=== PATIENT | male | born 1955 | race Caucasian/White ===

== ENCOUNTER 2019-06-20 08:54 | Outpatient (CLI) | payer MEDICARE, SELFPAY ==
--- NOTE | 2019-06-20 13:14 | PFTS_ITS ---
Date of Study:06/20/2019 Date of Dictation: MECHANICS: Forced vital capacity (FVC) is normal. Forced expiratory volume in one second (FEV1) is normal. FEV1/FVC is normal. FLOW VOLUME LOOP: Mild scooping. LUNG VOLUMES: Total lung capacity (TLC) is normal. Residual volume (RV) is normal. DIFFUSING CAPACITY FOR CARBON MONOXIDE: Mildly reduced. INTERPRETATION: The pulmonary function tests are normal. There is no significant postbronchodilator response. Total lung capacity and residual volume are normal. Given the history of significant smoking and scooping of the flow volume loop there is possible small airways disease. Gas exchange (DLCO) is mildly reduced. This most likely represents emphysema in a patient with significant history of smoking. MTDD
== END 2019-06-20 08:55 | disposition home or self-care (01) ==
PROVIDERS: Family Provider Family Medicine; PCP Family Medicine; Visit Provider Internal Medicine Critical Care Medicine
DX: J44.9 Chronic obstructive pulmonary disease, unspecified (principal); F17.210 Nicotine dependence, cigarettes, uncomplicated
CPT/HCPCS: 94060; 94726; 94729; J7611

== ENCOUNTER 2019-10-27 20:00 | Outpatient (CLI) | payer MEDICARE, SELFPAY | END 2019-10-27 20:01 | disposition home or self-care (01) | LOC: SLEEP 10-28 09:02 | PROVIDERS: Family Provider Family Medicine; PCP Family Medicine; Visit Provider Internal Medicine Critical Care Medicine | DX: G47.31 Primary central sleep apnea (principal) | CPT/HCPCS: 95810 ==

== ENCOUNTER 2019-12-03 20:00 | Outpatient (CLI) | payer MEDICARE, SELFPAY | END 2019-12-03 20:01 | disposition home or self-care (01) | LOC: SLEEP 12-04 08:48 | PROVIDERS: Family Provider Family Medicine; PCP Family Medicine; Visit Provider Internal Medicine Critical Care Medicine | DX: G47.39 Other sleep apnea (principal) | CPT/HCPCS: 95811 ==

== ENCOUNTER 2020-10-28 08:32 | Outpatient (CLI) | payer MEDICARE, SELFPAY ==
[2020-10-28 09:07] VITALS: BMI 35.5
--- NOTE | 2020-10-28 09:08 | ECG_ITS ---
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 The perfusion scan will be documented separately. DATA: Baseline heart rate was 52 beats per minute. Baseline blood pressure was 137/68 millimeters of mercury. Target heart rate was 157. Maximum heart rate achieved was 96. which was 61 % of the predicted target heart rate. Maximum blood pressure was 137/74 millimeters of mercury. The reason for ending the test was completion of the protocol. The patient did not experience any symptoms. ELECTROCARDIOGRAM: BASELINE: Sinus bradycardia. Interventricular conduction delay, normal axis. Otherwise, no ST-T changes suggestive of ischemia noted. No arrhythmia noted. EXERCISE: After Lexiscan injection, frequent PVCs were noted otherwise, no ST-T changes suggestive of ischemic noted. CONCLUSION: Please note due to baseline abnormality of the EKG specificity and sensitivity of the EKG portion of LexiScan MIBI stress test will be low 1. EKG not suggestive of ischemia 2. Lexiscan injection unremarkable. 3. Perfusion scan will be documented separately. Electronically Signed On 10-28-2020 11:26:08 CDT by LAURO POSADA [id number]
--- NOTE | 2020-10-28 09:09 | NMCV_ITS ---
NM vianca perf SPECT r/s* [id number] Toni Lightvis Age: 65 Gender: M : 1955 Exam Date: 10/28/2020 09:09 Ordering Phys: Lauro Posada MD ([email or web address]) Technologist: ELIAS Wong Exam Location: [facility] Indications: afib STRESS TEST Please [facility] IMAGE PROTOCOL Rest/Stress 1 Lexiscan Day Radiopharmaceutical Dose (mCi) Administration Site Administered by Rest: Tc-99m 10.9 IV ELIAS Wong Sestamibi Stress:Tc-99m 32.9 IV ELIAS Alfonso Sestamibi Rest: 28-Oct-2020 60 Discovery 630 Stress: 28-Oct-2020 30 Discovery 630 Images obtained in supine and prone position. 0.4mg Lexiscan. SPECT RESULTS Technical Quality: Excellent Raw Data Analysis: Normal Image Corrections: No attenuation or motion correction applied Summed Stress Score: 2 Summed Rest Score: 1 Summed Difference Score: 1 PERFUSION FINDINGS Medium-sized area of fixed perfusion defect noted in basal to mid inferior and inferolateral wall suggestive of old myocardial infarction versus scarring. FUNCTIONAL RESULTS (calculated via Gated SPECT) Stress Image LV EF (%): 74 Stress EDV (mL):98 TID: 1.09 Stress ESV (mL):25 Rest Image LV EF (%): 74 FUNCTIONAL FINDINGS: Basal to mid inferior wall hypokinesis. IMPRESSIONS Medium-sized area of old myocardial infarction versus scarring noted in basal to mid inferior inferolateral wall without nay-infarct ischemia. This study is negative for ischemia. EKG segment will be documented separately Lauro Posada MD (Electronically Signed) Final Date: 28 October 2020 16:44 S
[2020-10-28 10:46] VITALS: BP 126/73; PULSE 70
[2020-10-28] MEDS: regadenoson 0.4 Mg/5 ml Syringe IVP (10:46)
== END 2020-10-28 08:33 | disposition home or self-care (01) ==
PROVIDERS: PCP Family Medicine; Visit Provider Internal Medicine Cardiovascular Disease
DX: I48.91 Unspecified atrial fibrillation (principal); R06.02 Shortness of breath
CPT/HCPCS: 78452; 93017; A9500; J2785

== ENCOUNTER → 2022-01-27 10:05 | Outpatient (BNVA) | payer MEDICARE, SELFPAY | PROVIDERS: PCP Family Medicine; Visit Provider Internal Medicine Cardiovascular Disease | DX: R07.9 Chest pain, unspecified (principal); I25.10 Atherosclerotic heart disease of native coronary artery without angina pectoris; Z95.5 Presence of coronary angioplasty implant and graft; I25.2 Old myocardial infarction; F17.210 Nicotine dependence, cigarettes, uncomplicated; I12.9 Hypertensive chronic kidney disease with stage 1 through stage 4 chronic kidney disease, or unspecified chronic kidney disease; E11.22 Type 2 diabetes mellitus with diabetic chronic kidney disease; N18.9 Chronic kidney disease, unspecified; Z79.84 Long term (current) use of oral hypoglycemic drugs; I25.5 Ischemic cardiomyopathy; E78.5 Hyperlipidemia, unspecified | CPT/HCPCS: 99214 ==

== ENCOUNTER 2022-02-13 07:19 | Outpatient (CLI) | payer MEDICARE, SELFPAY ==
[2022-02-13] VITALS (46 sets, daily range): BP systolic 95–131; BP diastolic 52–78; PULSE 49–93; RESP 9–33; TEMP 37.1; O2SAT 88–98; BMI 33.9
[2022-02-13] MEDS: diphenhydrAMINE 50 mg Capsule PO (08:00)
[2022-02-13 08:28] LABS: Basophils # 0.1 10^3/uL (0.0-0.1); Eosinophils # 0.4 10^3/uL (0.0-0.8); Eosinophils % 3.1 %; Hematocrit 45.3 % (42.0-52.0); Hemoglobin 14.7 g/dL (11.7-16.6); Lymphocytes # 3.4 10^3/uL (0.8-4.8); Lymphocytes % 25.1 %; Mean Corpuscular HGB Conc 32.5 g/dL (30.0-36.0); Mean Corpuscular Hemoglobin 30.2 pg (28.0-34.0); Mean Corpuscular Volume 93.2 fl (80-94); Mean Platelet Volume 9.8 fL (7.4-10.4); Monocytes % 7.3 %; Neutrophils # 8.53 10^3/uL (1.8-7.7); Neutrophils % 63.2 %; Nucleated Red Blood Cells % 0 %; Platelet Count 293 10^3/cmm (130-400); Red Blood Count 4.86 10^6/uL (4.1-5.3); Red Cell Distribution Width 14.4 % (12.1-15.1); White Blood Count 13.5 10^3/uL (4.0-10.0)
[2022-02-13 08:44] LABS: INR 1.01 (0.8-1.2)
[2022-02-13 08:48] LABS: Anion Gap 14.8 (5-19); Blood Urea Nitrogen 12 mg/dL (8-23); Carbon Dioxide 22 mmol/L (22-29); Chloride 101 mmol/L (98-107); Creatinine Clr Calc Pharmacy 73.2955; Glomerular Filtration Rate 67.4 mL/min (90-130); Glucose 158 mg/dL (65-115); Osmolality Calculated 281 mOsm/kg (285-295); Potassium 3.8 mmol/L (3.5-5.1); Sodium 134 mmol/L (136-145)
--- NOTE | 2022-02-13 09:15 | W.PM.OPSUD ---
Surgery/Procedure H&P Update DATE OF PROCEDURE: February 13, 2022 DATE H&P PERFORMED: 01/27/22 CHANGES TO PREVIOUS DOCUMENTATION: None PRIMARY INDICATION FOR PROCEDURE: Chest pain PLANNED PROCEDURE: Operation Date: 02/13/22 08:30 Proposed Procedures p [facility] [address]6030,R07.9(Left) - Femi Singh MD
--- NOTE | 2022-02-13 09:19 | SUR.PREOP ---
Dr. Singh at bedside, consent obtained.
--- NOTE | 2022-02-13 09:56 | XACV_ITS ---
Exam Room: 2 Ht: 165 cm Wt: 95 kg BSA: 2.13 m2 Gender: Male : 1955 Any Known Allergies: No known allergies Exam Priority: Routine Procedure(s): Procedure Description: Diagnostic procedure Procedure Description: PCI procedure Procedure Description: PTCA Procedure Description: Coronary Angiography Samantha SANTAMARIA; Diagnostic Cath Status: Elective Diagnostic Findings * This patient has multiple risk factors and refuses to quit smoking. He is an obese diabetic with a previous history of multiple stents. He refused stress testing and wished to move directly to angiography. Patient has a very thready radial pulse. I was unable to enter the right radial artery. The procedure was done from the right common femoral artery. * Angiography reveals right coronary artery dominance. The left main coronary artery is normal. The LAD contains areas of luminal irregularities but no significant stenoses. There are 2 large marginal branches both of which have previously placed stents which are patent. There is a 85 to 90% ostial stenosis of the second marginal just at the takeoff of the first marginal at the bifurcation. The LAD and circumflex provide collateral flow to the occluded right coronary artery. The right coronary artery is occluded proximally. PCI Status: Elective PCI LVEF Assessed: No PCI Indication: New Onset Angina <= 2 months Interventional Findings * At the end of angiography patient became restless. He has a very high tolerance for drugs and despite fairly large doses of benzodiazepines and narcotics he remained restless and talkative. Angioplasty first of the second obtuse marginal branch was accomplished with a 3.5 mm x 15 mm balloon. This, not unexpectedly, pushed plaque into the first obtuse marginal branch. This vessel then underwent angioplasty with the same balloon. We ended up with a adequate result with about 40% stenoses of both ostial vessels. Decision for PCI with Surgical Consult: No PCI for Multi-vessel Disease: No Conclusions 1. Angioplasty of the first and second obtuse marginal branches at the ostia with plaque shifting between the 2. Adequate end result. Occluded right coronary artery. Interventional RX Recommendation: PCI w/o planned CABG Diagnostic RX Recommendation: PCI w/o planned CABG Anticoagulation: Heparin Pressures Phase:Rest AO : 111 / 80 ( 94 ) @ 10:34:00 AM 111 / 60 ( 80 ) @ 10:47:00 AM Clinical Evaluation EBL: 5mL-10mL Procedural Details Procedure Consent Obtained. Admit Source: In Patient. Baseline sample Acquired. HR: 55 BPM. Baseline sample Acquired. HR: 59 BPM. Pre-Procedure Time Out. Identified patient by full name and date of as verbalized by the patient/guarantor. Does the consent match the physician's order: Yes. Accurate & Complete Informed Consent: Yes. Inpatient/Outpatient History & Physical on Chart: Yes. If H&P is completed, is and addenduem needed: No; If yes, is the addendum complete: N/A. Visualize and Verify Site with Patient/Guarantor: N/A. Relevant Radiology Images available: Yes. Pre-op teaching completed and patient verbalized understanding. The risks, benefits, and alternatives of sedation and/or procedure were discussed by physician. The patient agrees to continue. Procedure started. [facility] Clinical Fraility Score: 3: Managing Well. Cardiac Rehab Nurse Indications: Suspected CAD. Chest Pain Symptom Assessment: Atypical Angina. Correct patient, site and procedure confirmed by cath team. Current diagnosis: Chest Pain. PERRLA. 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 Lungs clear x 5 lobes. IV Site on Arrival: 18 gauge in the right anticubital. IV Fluids: 0.9% NaCl at KVO. 0 mL infused prior to dye lab technician. Pre Procedural Pulses: bilateral posterior tibial was Doppled. Pre Procedural Pulses: bilateral radial was 2+. Oxygen started at 2liters/min via nasal canula. Baseline sample Acquired. HR: 57 BPM. Physician arrived. Physician scrubbed in. Immediate Pre-Procedure Time Out. Correct Patient: Yes; Correct Procedure: Yes; Correct Site: Yes; Correct Patient Position: Yes; Correct Supplies: Yes; Dried Flammable Prep: Yes; Blood Products Available: N/A;. Lidocaine 1% infiltrated to the right radial. Unable to obtain radial access. MD attempting to gain access in the Femoral artery. Lidocaine 1% infiltrated to the right groin. Arterial access obtained. A 6 mal[place] JL4 catheter in over wire. Multiple views taken of left coronary artery. Catheter out. A 6 malawian JR4 catheter in over wire. Multiple views taken of right coronary artery. Physician review of cine films. 6 malawian XB 3.5 guide catheter was inserted over the wire. wire out. [employer] guidewire was advanced through the guide catheter to lesion in the OM. Inventory is [employer] XT .014 190cm Str. Guidewire. Balloon inserted to lesion in the OM. Inflation number : 1 A AB TREK 3.50X15 RX BALLOON was prepped and advanced across the 2nd Ob Aura , then inflated to 8 ROB for 0:32 seconds. Results checked. wire redirected to om1. Inflation number: 1 The AB TREK 3.50X15 RX BALLOON was reinflated across the 1st Ob Aura, to 5 ROB for 0:23 seconds. Results checked. Balloon out. Wire out. Guide catheter out. Physician scrubbed out. Sheath(s) sutured into position with 2-0 silk and sterile 4x4's and Op-site applied over the site. No oozing or signs and symptoms of hematoma noted. Arterial sheath flushed and connected to tranducer and pressure bag with heparinized saline. Post Procedure: Pulses reassessed and unchanged. PERRLA. 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 No VTE prophylaxis required. Medication's Wasted: Lidocaine 1% = 4 mL. Medication's Wasted: Nitro = 50 mg. Total IV fluids: 100 mL. Post-op diagnosis: CAD. Estimated blood loss: 5mL-10mL. Responsiveness - Normal response to verbal stimuli; alert and oriented, PERRLA. Airway - Unaffected, no intervention required; spontaneous ventilation. Circulation: W/N/L, pulses unchanged. Nausea/Vomiting: No. Procedure completed. Patient transferred by bed to 1st floor. Vital chart was stopped. Access Site Site: Right Femoral artery Sheath Size: 6 Fr Hemostasis Success: Unsuccessful Procedure Medications Start: 10:12 AM Stop: 10:12 AM Medication: Versed Amount: 1 mg Route: I.V. Start: 10:12 AM Stop: 10:12 AM Medication: Fentanyl Amount: 50 mcg Route: I.V. Start: 10:12 AM Stop: 10:12 AM Medication: Versed Amount: 1 mg Route: I.V. Start: 10:12 AM Stop: 10:12 AM Medication: Fentanyl Amount: 50 mcg Route: I.V. Start: 10:22 AM Stop: 10:22 AM Medication: Versed Amount: 1 mg Route: I.V. Start: 10:27 AM Stop: 10:27 AM Medication: Versed Amount: 1 mg Route: I.V. Start: 10:45 AM Stop: 10:45 AM Medication: Versed Amount: 1 mg Route: I.V. Start: 10:45 AM Stop: 10:45 AM Medication: Fentanyl Amount: 50 mcg Route: I.V. Start: 10:46 AM Stop: 10:46 AM Medication: Heparin Amount: 5000 units Route: I.V. I, the attending physician, have reviewed and verified all procedure medications. Yes, all medications given per verbal order History/Risk Factors Hypertension: Yes Dyslipidemia: Yes Peripheral Arterial Disease (PAD): No Myocardial Infarction ([place]): Yes Obesity: No Renal Disease: No Tobacco Use: Current/Recent(w/in 1 year) Prior Interventions PCI: Yes CABG: No Valve Surgery: No Date of PCI: 03/04/2018 Report Signatures Finalized by Dr. Femi Signh MD on 02/13/2022 11:17 AM
[2022-02-13] MEDS: sodium chloride 0.9% 1,000 ML 100 ML IV (11:43)
[2022-02-13] MEDS: HYDROcodone-acetaminophen 10-325 mg Tablet 1 TAB PO ×2 (14:38→22:59)
--- NOTE | 2022-02-13 21:34 | PC.NURSE ---
At 2100 patient attempted to get out of bed by himself. Patient became short of breath and diaphoretic. Patient denied chest pain. Patient was not able tostand on his own. With the help of a second nurse we were able to get patient to a chair.
--- NOTE | 2022-02-14 06:25 | PM.DCS ---
Discharge Providers Date of Admission: February 13, 2022 Date of Discharge: February 14, 2022 Attending Provider at Admission: lashawn Attending Provider at Discharge: Femi Singh MD Primary Care Provider: Magno Vann DO Diagnoses at Discharge Discharge Diagnosis (1) Chest pain: Status: Acute (2) Mixed sleep apnea: Status: Acute (3) Chronic renal disease: Status: Acute (4) Obesity: Status: Acute (5) Ischemic cardiomyopathy: Status: Acute (6) History of coronary artery stent placement: Status: Acute (7) Myocardial infarct, old: Status: Acute (8) Hypertension: Status: Acute Qualifiers: Hypertension type: essential hypertension Qualified Code(s): I10 - Essential (primary) hypertension (9) Dyslipidemia: Status: Acute (10) Diabetes mellitus: Status: Acute (11) Chronic pain disorder: Status: Acute (12) CAD (coronary artery disease): Status: Acute Qualifiers: Coronary Disease-Associated Artery/Lesion type: [place] artery [place] vs. transplanted heart: [place] heart Associated angina: angina presence unspecified Qualified Code(s): I25.10 - Atherosclerotic heart disease of [place] coronary artery without angina pectoris (13) Nicotine addiction: Status: Acute (14) Sleep apnea: Status: Acute (15) COPD (chronic obstructive pulmonary disease): Status: Acute Reason for Visit Reason for Visit: R07.9 Brief History: Patient was admitted yesterday electively for purposes of coronary angiography. I had seen him in the office a week prior with complaints of chest pain. He declined stress testing. He has a long history of coronary artery disease. Hospital Course Hospital Course Coronary angiography revealed an occluded right coronary artery which is chronic. There is collateral flow from the LAD and a minimal amount from the circumflex. The LAD contains minor diffuse luminal irregularities as does the left main. At the bifurcation of the first and second marginal branch there was a 90% stenosis of the second obtuse marginal branch. This underwent plain old balloon angioplasty because of plaque shifting into the first obtuse marginal branch. Both branches underwent angioplasty with a reasonable result. Previously placed stents more distally in both marginal branches are patent. No left ventriculogram was done. The procedure was done from the right femoral artery. Multiple attempts were made to enter the right radial artery which were unsuccessful. This has been the case in the past for him. At the time of discharge there is no bleeding, hematoma or other vascular problem. His medications will not change. He has been instructed to hold the metformin for 2 days post discharge. Physical Exam Narrative: GENERAL: In general he states he feels a little better this morning. No distress. No chest pain. Minimal chronic shortness of breath. HEENT: Exam within normal limits. NECK: Supple without jugular vein distention. The carotid upstroke is normal without bruits. BACK: Exam normal. LUNGS: Clear. HEART: Regular rate and rhythm. ABDOMEN: Benign without organomegaly or tenderness. EXTREMITIES: No edema. Right groin is flat, dry without bleeding, hematoma or vascular anomaly. NEUROLOGIC: Exam normal. SKIN: Unremarkable. 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 request for service Routine Exams 02/13/22 09:56 Completed Laboratory Results WBC 13.5 10^3/uL (4.0-10.0) H 02/13/22 08:05 RBC 4.86 10^6/uL (4.1-5.3) 02/13/22 08:05 Hgb 14.7 g/dL (11.7-16.6) 02/13/22 08:05 Hct 45.3 % (42.0-52.0) 02/13/22 08:05 MCV 93.2 fl (80-94) 02/13/22 08:05 MCH 30.2 pg (28.0-34.0) 02/13/22 08:05 MCHC 32.5 g/dL (30.0-36.0) 02/13/22 08:05 RDW 14.4 % (12.1-15.1) 02/13/22 08:05 Plt Count 293 10^3/cmm (130-400) 02/13/22 08:05 MPV 9.8 fL (7.4-10.4) 02/13/22 08:05 Neut % (Auto) 63.2 % 02/13/22 08:05 Lymph % (Auto) 25.1 % 02/13/22 08:05 Gulf % (Auto) 7.3 % 02/13/22 08:05 Eos % (Auto) 3.1 % 02/13/22 08:05 Baso % (Auto) 1.0 % 02/13/22 08:05 Neut # (Auto) 8.53 10^3/uL (1.8-7.7) H 02/13/22 08:05 Lymph # (Auto) 3.4 10^3/uL (0.8-4.8) 02/13/22 08:05 [place] # (Auto) 1.0 10^3/uL (0.2-0.9) H 02/13/22 08:05 Eos # (Auto) 0.4 10^3/uL (0.0-0.8) 02/13/22 08:05 Baso # (Auto) 0.1 10^3/uL (0.0-0.1) 02/13/22 08:05 Nucleated RBC % (auto) 0 % 02/13/22 08:05 Nucleated RBCs # 0.0 /100WBC 02/13/22 08:05 PT 13.60 SECONDS (12.1-14.9) 02/13/22 08:05 INR 1.01 (0.8-1.2) 02/13/22 08:05 APTT 45.0 SECONDS (23.9-36.7) H 02/13/22 13:52 Sodium 134 mmol/L (136-145) L 02/13/22 08:05 Potassium 3.8 mmol/L (3.5-5.1) 02/13/22 08:05 Chloride 101 mmol/L (98-107) 02/13/22 08:05 Carbon Dioxide 22 mmol/L (22-29) 02/13/22 08:05 Anion Gap 14.8 (5-19) 02/13/22 08:05 BUN 12 mg/dL (8-23) 02/13/22 08:05 Creatinine 1.1 mg/dL (0.7-1.2) 02/13/22 08:05 GFR Calculation 67.4 mL/min (90-130) L 02/13/22 08:05 Glucose 158 mg/dL (65-115) H 02/13/22 08:05 Calculated Osmolality 281 mOsm/kg (285-295) L 02/13/22 08:05 Calcium 9.0 mg/dL (8.5-10.5) 02/13/22 08:05 Procedures Performed Coronary angiography. Angioplasty ostial first and second obtuse marginal branches. Vitals Last Vital Signs Temp 98.7 F 02/13/22 08:23 Pulse 54 L 02/13/22 23:45 Resp 16 02/13/22 23:45 BP 120/68 02/13/22 21:00 Pulse Ox 98 02/13/22 23:45 O2 Del Method CPAP 02/13/22 11:47 Discharge Plan Discharge Patient Disposition: Home Prescriptions: Continued aspirin [Adult Aspirin Regimen] 81 mg tablet,delayed release (DR/EC) 81 mg PO DAILY atorvastatin 40 mg tablet 40 mg PO DAILY Qty: 90 3RF furosemide 40 mg tablet 40 mg PO QAM PRN (Reason: edema) Qty: 90 3RF metoprolol succinate 100 mg tablet extended release 24 hr 100 mg PO DAILY Qty: 90 3RF nitroglycerin 0.4 mg tablet, sublingual 0.4 mg SUBLINGUAL Q5M PRN (Reason: chest pain) Qty: 25 3RF prasugrel 10 mg tablet 10 mg PO DAILY Qty: 90 3RF ranolazine 500 mg tablet extended release 12 hr 500 mg PO DAILY Qty: 90 1RF hydrocodone-acetaminophen 10-325 mg tablet 1 tab PO QID PRN (Reason: pain) Rx Instructions: Hold 4H of planned sleep cyclobenzaprine 10 mg tablet 10 mg PO BID PRN (Reason: muscle spasm) metformin 500 mg tablet 500 mg PO DAILY omega-3 fatty acids [Fish Oil Concentrate] 1,000 mg capsule 1,000 mg PO DAILY tamsulosin 0.4 mg capsule 0.4 mg PO DAILY Farxiga 5 mg Tablet 5 mg PO QAM Discharge Orders: Discharge Order (Routine); Ordered 02/14/22 Ordered By: Femi Singh Referrals: Isa Perdomo FNP [Nurse Practitioner] - 7-10 days (Right groin check and chemistry panel) Diet: Diabetic Activity: Increase activity as tolerated and Limit activity as instructed Patient Instructions: Coronary Angioplasty (DC) Activity Restrictions/Additional Instructions: No lifting over 5 pounds for 2 days. Hold metformin for 2 days. Discharge Attestations Time Spent in Discharge Care*: less than 30 min Quality Metrics Clinical Quality Measures [ No reported AMI, CVA or VTE this stay] Coding Level of Care Code Established Pt Acute Chg FW DC note Patient Type Established History Detailed Exam Detailed Medical Decision Making Moderate Complexity Diagnoses Chest pain R07.9 Mixed sleep apnea G47.39 Chronic renal disease N18.9 Obesity E66.9 Ischemic cardiomyopathy I25.5 History of coronary artery stent placement Z95.5 Myocardial infarct, old I25.2 Hypertension I10 Hypertension type: essential hypertension Dyslipidemia E78.5 Diabetes mellitus E11.9 Chronic pain disorder G89.4 CAD (coronary artery disease) I25.10 Coronary Disease-Associated Artery/Lesion type: [place] artery [place] vs. transplanted heart: [place] heart Associated angina: angina presence unspecified Nicotine addiction F17.200 Sleep apnea G47.30 COPD (chronic obstructive pulmonary disease) J44.9
[2022-02-14 07:46] VITALS: BP 122/67; PULSE 64; RESP 18; TEMP 36.7; O2SAT 97
[2022-02-14] MEDS: omega-3 fatty acids 1,000 mg Capsule 1000 MG PO (07:55)
--- NOTE | 2022-02-14 09:16 | PC.NURSE ---
Discharge Note Patient discharged to home via private vehicle accompanied by . Discharge instructions reviewed with patient and/or pharmacy services representative. Belongings returned. post angiogram home care instructions discussed. educated pt to hold metformin for 2 days per livestock laborer.
== END 2022-02-14 09:15 | disposition home or self-care (01) ==
LOC: CCL 07:27 → CSU 11:24
PROVIDERS: PCP Family Medicine; Visit Provider Internal Medicine Cardiovascular Disease
DX: I25.10 Atherosclerotic heart disease of native coronary artery without angina pectoris (principal); I25.82 Chronic total occlusion of coronary artery; E11.22 Type 2 diabetes mellitus with diabetic chronic kidney disease; I12.9 Hypertensive chronic kidney disease with stage 1 through stage 4 chronic kidney disease, or unspecified chronic kidney disease; N18.9 Chronic kidney disease, unspecified; I25.2 Old myocardial infarction; G47.39 Other sleep apnea; E66.9 Obesity, unspecified; Z68.33 Body mass index [BMI] 33.0-33.9, adult; I25.5 Ischemic cardiomyopathy; Z95.5 Presence of coronary angioplasty implant and graft; G89.4 Chronic pain syndrome; F17.210 Nicotine dependence, cigarettes, uncomplicated; J44.9 Chronic obstructive pulmonary disease, unspecified; Z79.82 Long term (current) use of aspirin; Z79.84 Long term (current) use of oral hypoglycemic drugs; Z87.11 Personal history of peptic ulcer disease
CPT/HCPCS: 36415; 80048; 85025; 85610; 85730; 92920; 93454; 96360; 99152; 99153; C1725; C1769; C1887; C1894; J1644; J2250; J3010; J3490; J7030; Q0163; Q9967

== ENCOUNTER → 2022-03-23 10:27 | Outpatient (BNVA) | payer MEDICARE, SELFPAY | PROVIDERS: PCP Family Medicine; Visit Provider Orthopaedic Surgery | DX: M47.817 Spondylosis without myelopathy or radiculopathy, lumbosacral region (principal); M48.062 Spinal stenosis, lumbar region with neurogenic claudication; Z98.1 Arthrodesis status | CPT/HCPCS: 72110; 99204 ==

== ENCOUNTER → 2023-06-18 11:04 | Outpatient (BNVA) | payer MEDICARE, SELFPAY | PROVIDERS: PCP Family Medicine; Visit Provider Internal Medicine Cardiovascular Disease | DX: I25.10 Atherosclerotic heart disease of native coronary artery without angina pectoris (principal); Z95.5 Presence of coronary angioplasty implant and graft; E78.5 Hyperlipidemia, unspecified; I25.2 Old myocardial infarction; I25.5 Ischemic cardiomyopathy; E66.9 Obesity, unspecified; I12.9 Hypertensive chronic kidney disease with stage 1 through stage 4 chronic kidney disease, or unspecified chronic kidney disease; E11.22 Type 2 diabetes mellitus with diabetic chronic kidney disease; N18.9 Chronic kidney disease, unspecified; J44.9 Chronic obstructive pulmonary disease, unspecified; G47.39 Other sleep apnea; F17.210 Nicotine dependence, cigarettes, uncomplicated; Z79.84 Long term (current) use of oral hypoglycemic drugs; Z68.37 Body mass index [BMI] 37.0-37.9, adult | CPT/HCPCS: 99214 ==

== ENCOUNTER 2024-07-14 23:49 | Emergency (ER) | payer MEDICARE, SELFPAY ==
[2024-07-14 23:56] VITALS: BP 131/83; PULSE 107; RESP 23; TEMP 36.4; O2SAT 94; BMI 33.5
[2024-07-15] VITALS (7 sets, daily range): BP systolic 94–155; BP diastolic 63–111; PULSE 77–113; RESP 15–20; O2SAT 93–96
--- NOTE | 2024-07-15 00:08 | ECG_ITS ---
[facility] Pat Name: Austyn Light Department: Room: Gender: Male Process Consultant: : 1955 Requested By: Main Wiley Order Number: [id number] Patricia MD: Satinder العراقي M.D. Measurements Intervals Harvey Rate: 96 P: 59 FL: 192 QRS: 52 QRSD: 110 T: 243 QT: 348 QTc: 441 Interpretive Statements SINUS RHYTHM WITH FREQUENT VENTRICULAR PREMATURE COMPLEXES POSSIBLE LEFT ATRIAL ENLARGEMENT [-0.1mV P-WAVE IN V1/V2] MODERATE T-WAVE ABNORMALITY, CONSIDER ANTEROLATERAL ISCHEMIA [-0.1+ mV T-WAVE IN V3-V6] Compared to ECG 03/24/2019 22:09:23 Ventricular premature complex(es) now present T-wave abnormality now present Possible ischemia now present Early repolarization no longer present Electronically Signed On 07-15-2024 18:51:30 CDT by Satinder العراقي M.D. [email or web address]
--- NOTE | 2024-07-15 01:38 | XRR_ITS ---
PROCEDURE INFORMATION: Exam: XR Chest Exam date and time: 07/15/2024 1:51 AM Age: 68 years old Clinical indication: Dyspnea and shortness of breath TECHNIQUE: Imaging protocol: Radiologic exam of the chest. Views: 1 view. COMPARISON: CR XR chest 1V [id number] 03/24/2019 10:18 PM FINDINGS: Lungs: Unremarkable. No consolidation. Pleural spaces: Unremarkable. No pleural effusion. No pneumothorax. Heart/Mediastinum: Unremarkable. No cardiomegaly. Bones/joints: ACDF plate present. No fractures. XR/XR chest 1V portable [id number] IMPRESSION: No acute chest pathology.
[2024-07-15 01:44] LABS: Basophils # 0.1 10^3/uL (0.0-0.1); Basophils % 0.8 %; Eosinophils # 0.3 10^3/uL (0.0-0.8); Eosinophils % 1.8 %; Hematocrit 50.7 % (37-53); Lymphocytes # 3.9 10^3/uL (0.8-4.8); Lymphocytes % 27.2 %; Mean Corpuscular HGB Conc 33.3 g/dL (30-55); Mean Corpuscular Hemoglobin 31.9 pg (27-33); Mean Corpuscular Volume 95.8 fl (82-101); Mean Platelet Volume 9.9 fL (7.4-10.4); Monocytes # 0.9 10^3/uL (0.2-0.9); Monocytes % 6.3 %; Neutrophils # 9.14 10^3/uL (1.8-7.7); Neutrophils % 63.5 %; Nucleated Red Blood Cells % 0 %; Platelet Count 295 10^3/cmm (157-399); Red Blood Count 5.29 10^6/uL (3.85-5.65); Red Cell Distribution Width 12.6 % (12.1-15.1); White Blood Count 14.41 10^3/uL (3.29-11.43)
--- NOTE | 2024-07-15 01:53 | W.ED.SOB ---
HPI - SOB/Dyspnea General: Chief Complaint: Shortness of Breath/Dyspnea Stated Complaint: sob, chest pain Time Seen by Provider: 07/15/24 00:41 History of Present Illness: HPI Narrative: Patient presents to the ER by EMS with complaining of chest pain off and on x 3 months and shortness of breath x 2 weeks. Patient comes from home. Patient says in the last 2 weeks he has not been able to get up and walk across the room without becoming severely short of breath. Patient does not have oxygen at home. Patient has had an increase in Lasix to help with the swelling in his bilateral lower extremities but it says it has not worked the last several days. Patient has 3+ pitting edema is even take an additional Lasix today. Patient's had some chest tightness today that it was alleviated oxygen therapy. Patient does state he is a smoker. Related Data Home Medications ?Medication ?Instructions ?Recorded ?Confirmed hydrocodone 10 mg-acetaminophen 1 tab PO QID PRN pain 04/10/19 06/18/23 325 mg tablet metformin 500 mg tablet 500 mg PO DAILY 04/10/19 06/18/23 aspirin 81 mg tablet,delayed 81 mg PO DAILY 07/17/19 06/18/23 release (Adult Aspirin Regimen) omega-3 fatty acids 1,000 mg 1,000 mg PO DAILY 01/09/20 06/18/23 capsule (Fish Oil Concentrate) dapagliflozin propanediol 5 mg 5 mg PO QAM 02/10/22 06/18/23 tablet (Farxiga) tamsulosin 0.4 mg PO DAILY 02/10/22 06/18/23 Previous Rx's ?Medication ?Instructions ?Recorded prasugrel HCl 10 mg tablet 10 mg PO DAILY #90 tabs 12/13/22 ranolazine 500 mg tablet,extended 500 mg PO DAILY #30 tabs 02/08/23 release,12 hr metoprolol succinate 100 mg 100 mg PO DAILY #90 tabs 03/05/23 tablet,extended release 24 hr atorvastatin 40 mg tablet 40 mg PO DAILY #30 tabs 03/13/23 nitroglycerin 0.4 mg sublingual 0.4 mg sublingual Q5M PRN chest 05/10/23 tablet pain #25 tabs bumetanide 2 mg tablet 2 mg PO DAILY #30 tabs 07/15/24 Allergies Allergy/AdvReac Type Severity Reaction Status Date / Time No Known Allergies Allergy Verified 07/15/24 00:06 Review of Systems General: Reports: 10 or more systems reviewed and unremarkable except in HPI and below PFSH ED PFSH: Medical History Chest pain Obesity Ischemic cardiomyopathy Chronic migraine Sleep apnea Bilateral foot-drop Cervical spondylolysis Chronic renal disease Low back pain CAD (coronary artery disease) Myocardial infarct, old Peptic ulcer disease Hypertension Dyslipidemia Chronic pain disorder COPD (chronic obstructive pulmonary disease) Temporal arteritis Spinal stenosis Facet joint disease of cervical region Bilateral chronic knee pain Degenerative disc disease Neck pain Multinodular thyroid Diabetes mellitus Surgical History H/O right knee surgery History of back surgery Hx of excision of lamina of cervical vertebra for decompression of spinal cord History of coronary angioplasty with insertion of stent History of coronary artery stent placement H/O neck surgery Family History Father No problems noted. Mother , 81yrs Cancer Liver failure Social History Smoking and tobacco/nicotine status: current every day tobacco/nicotine user cigarettes Packs smoked per day: 0.5 Years cigarettes smoked: 41 Quit status (tobacco/nicotine): not considering quitting Alcohol intake: never Substance/Drug Use: never Lives independently: Yes Household members: significant other Marital status: Number of children: 2 Highest education level completed: 11th Grade Current occupational status: disabled Do you think of yourself as: Straight/Heterosexual Current gender identity: Male Physical Exam Const: COMMON NORMALS: no acute distress, average body habitus, patient oriented x3, no limitations, healthy appearing, alert and well nourished HENMT: COMMON NORMALS: normocephalic, atraumatic, hearing grossly normal bilaterally, external ears normal, Normal external nose present, moist oral mucous membranes and oropharynx normal HEAD & SCALP: normocephalic and atraumatic NOSE: Normal external nose present EXTERNAL EAR: Yes external ears normal Neck/C-Spine: COMMON NORMALS: full ROM, no lymphadenopathy, supple, no meningeal signs and no JVD Chest: COMMONS NORMALS: normal inspection of the chest and normal palpation of entire chest wall Resp: COMMON NORMALS: normal respiratory effort, No retractions, No use of accessory muscles and clear to auscultation bilaterally AUSCULTATION: clear to auscultation bilaterally Cardio: COMMON NORMALS: no JVD, regular rate, regular rhythm, S1 normal heart sound present, S2 normal heart sound present, No gallops present (Cardio), No clicks present (Cardio), No murmurs present (Cardio) and No rub (Cardio) RATE: regular rate RHYTHM: regular rhythm HEART SOUNDS: S1 normal heart sound present and S2 normal heart sound present GI: COMMON NORMALS: Normal to inspection, nondistended, normoactive bowel sounds present, Soft to palpation, non-tender, No hepatosplenomegaly present and no masses PALPATION: Yes Soft to palpation and Yes No hepatosplenomegaly present Extremity: NARRATIVE EXTREMITY EXAM: 3+ pitting edema bilateral lower extremity Neuro: COMMON NORMALS: patient oriented x3 SENSORIUM/ORIENTATION: Yes alert MENINGEAL SIGNS: Yes no meningeal signs Course Vital Signs: Vital signs: Vital Signs Temperature 97.6 F 07/14/24 23:56 Pulse Rate 77 07/15/24 02:36 Respiratory Rate 16 07/15/24 02:36 Blood Pressure 94/63 07/15/24 02:36 Pulse Oximetry 93 07/15/24 02:36 Oxygen Delivery Me thod Nasal Cannula 07/14/24 23:56 MDM - SOB/Dyspnea Medical Decision Making Lab work was obtained on the patient which revealed a BNP of 584, troponin of 36 2-hour 38 for delta of 2, white count of 14, chest x-ray was negative, patient was given 2 mg of Bumex IV and proceeded to have good diuresis. Will change patient over from Lasix to Bumex. Medical Records I reviewed the patient's medical records. Lab Data I reviewed the patient's lab results. 07/14/24 23:57 07/14/24 23:57 Labs/Radiology: Radiology Impressions Chest X-Ray 07/15/24 01:38 IMPRESSION: No acute chest pathology. Laboratory Results WBC 14.41 10^3/uL (3.29-11.43) H 07/14/24 23:57 RBC 5.29 10^6/uL (3.85-5.65) 07/14/24 23:57 Hgb 16.90 g/dL (11.27-16.99) 07/14/24 23:57 Hct 50.7 % (37-53) 07/14/24 23:57 MCV 95.8 fl (82-101) 07/14/24 23:57 MCH 31.9 pg (27-33) 07/14/24 23:57 MCHC 33.3 g/dL (30-55) 07/14/24 23:57 RDW 12.6 % (12.1-15.1) 07/14/24 23:57 Plt Count 295 10^3/cmm (157-399) 07/14/24 23:57 MPV 9.9 fL (7.4-10.4) 07/14/24 23:57 Neut % (Auto) 63.5 % 07/14/24 23:57 Lymph % (Auto) 27.2 % 07/14/24 23:57 [place] % (Auto) 6.3 % 07/14/24 23:57 Eos % (Auto) 1.8 % 07/14/24 23:57 Baso % (Auto) 0.8 % 07/14/24 23:57 Neut # (Auto) 9.14 10^3/uL (1.8-7.7) H 07/14/24 23:57 Lymph # (Auto) 3.9 10^3/uL (0.8-4.8) 07/14/24 23:57 [place] # (Auto) 0.9 10^3/uL (0.2-0.9) 07/14/24 23:57 Eos # (Auto) 0.3 10^3/uL (0.0-0.8) 07/14/24 23:57 Baso # (Auto) 0.1 10^3/uL (0.0-0.1) 07/14/24 23:57 Nucleated RBC % (auto) 0 % 07/14/24 23:57 Nucleated RBCs # 0.0 /100WBC 07/14/24 23:57 Sodium 137 mmol/L (136-145) 07/14/24 23:57 Potassium 3.5 mmol/L (3.5-5.1) 07/14/24 23:57 Chloride 98 mmol/L (98-107) 07/14/24 23:57 Carbon Dioxide 22 mmol/L (22-29) 07/14/24 23:57 Anion Gap 20.5 (5-19) H 07/14/24 23:57 BUN 21 mg/dL (8-23) 07/14/24 23:57 Creatinine 1.3 mg/dL (0.7-1.2) H 07/14/24 23:57 GFR Calculation 55.2 mL/min (90-130) L 07/14/24 23:57 Glucose 224 mg/dL (65-115) H 07/14/24 23:57 Calculated Osmolality 294 mOsm/kg (285-295) 07/14/24 23:57 Calcium 9.8 mg/dL (8.5-10.5) 07/14/24 23:57 Magnesium 1.9 mg/dL (1.7-2.3) 07/14/24 23:57 Total Bilirubin 0.5 mg/dL (0.15-1.2) 07/14/24 23:57 AST 20 U/L (0-40) 07/14/24 23:57 ALT 17 U/L (0-41) 07/14/24 23:57 Alkaline Phosphatase 119 U/L (40-130) 07/14/24 23:57 Troponin T Baseline 36 ng/L (0-15) H 07/14/24 23:57 Troponin T 120 Minute 38.14 ng/L (0-15) H 07/15/24 01:55 Delta Troponin T 2.14 ABS# (0-10) 07/15/24 01:55 NT-Pro-B Natriuret Pep 584 pg/mL (0-125) H 07/14/24 23:57 Total Protein 8.0 g/dL (6.6-8.7) 07/14/24 23:57 Albumin 4.4 g/dL (3.5-5.2) 07/14/24 23:57 Globulin 3.6 g/dL (1.3-4.6) 07/14/24 23:57 All radiology interpretation(s) finalized by discharge Discharge Plan Discharge Patient Disposition: Home Clinical Impression: Shortness of breath, Edema Condition: Stable Prescriptions: New bumetanide 2 mg tablet 2 mg PO DAILY Qty: 30 0RF Discontinued furosemide 40 mg tablet 40 mg PO QAM PRN (Reason: edema) Qty: 90 3RF No Action aspirin [Adult Aspirin Regimen] 81 mg tablet,delayed release (DR/EC) 81 mg PO DAILY hydrocodone-acetaminophen 10-325 mg tablet 1 tab PO QID PRN (Reason: pain) Rx Instructions: Hold 4H of planned sleep metformin 500 mg tablet 500 mg PO DAILY omega-3 fatty acids [Fish Oil Concentrate] 1,000 mg capsule 1,000 mg PO DAILY prasugrel HCl 10 mg tablet 10 mg PO DAILY Qty: 90 0RF Rx Instructions: MUST MAKE AN APPOINTMENT AND BE SEEN PRIOR TO ANY MORE REFILLS ranolazine 500 mg tablet extended release 12 hr 500 mg PO DAILY Qty: 30 0RF Rx Instructions: patient needs appointment for further refills metoprolol succinate 100 mg tablet extended release 24 hr 100 mg PO DAILY Qty: 90 3RF atorvastatin 40 mg tablet 40 mg PO DAILY Qty: 30 0RF Rx Instructions: patient needs appointment for further refills nitroglycerin 0.4 mg tablet, sublingual 0.4 mg SUBLINGUAL Q5M PRN (Reason: chest pain) Qty: 25 0RF Rx Instructions: patient needs appointment for further refills tamsulosin 0.4 mg capsule 0.4 mg PO DAILY Farxiga 5 mg Tablet 5 mg PO QAM Discharge Orders: Discharge ED (Routine); Ordered 07/15/24 Ordered By: Main Wiley Referrals: Magno Vann DO [Primary Care Provider] - 1 week Patient Instructions: Shortness of Breath (ED), Dependent Edema Activity Restrictions/Additional Instructions: Please stop your Lasix. A prescription for Bumex bumetanide has been sent to your pharmacy. Please take it as directed in place of your Lasix. Please follow-up with your primary care doctor within next 7 days for further evaluation and treatment. Print Language: Central African Coding Level of Care Code ED Heart Coordinator for Bonnie Mcqueen
[2024-07-15 01:57] LABS: Troponin(5th) Baseline 36 ng/L (0-15)
[2024-07-15 02:05] LABS: Alanine Aminotransferase 17 U/L (0-41); Albumin Level 4.4 g/dL (3.5-5.2); Alkaline Phosphatase 119 U/L (40-130); Anion Gap 20.5 (5-19); Aspartate Amino Transferase 20 U/L (0-40); Blood Urea Nitrogen 21 mg/dL (8-23); Calcium 9.8 mg/dL (8.5-10.5); Carbon Dioxide 22 mmol/L (22-29); Chloride 98 mmol/L (98-107); Creatinine Clr Calc Pharmacy 60.1003; Globulin 3.6 g/dL (1.3-4.6); Glomerular Filtration Rate 55.2 mL/min (90-130); Glucose 224 mg/dL (65-115); Magnesium 1.9 mg/dL (1.7-2.3); NT Pro B Type Natriuretic Pept 584 pg/mL (0-125); Osmolality Calculated 294 mOsm/kg (285-295); Potassium 3.5 mmol/L (3.5-5.1); Sodium 137 mmol/L (136-145); Total Bilirubin 0.5 mg/dL (0.15-1.2)
[2024-07-15 02:29] LABS: Troponin 5 2HR 38.14 ng/L (0-15); Troponin 5 2HR Delta 2.14 ABS# (0-10)
[2024-07-15] MEDS: bumetanide 0.25 mg/mL SDV 4 mL 2 MG IVP (02:48)
--- NOTE | 2024-07-15 03:30 | ECG_ITS ---
[employer] Ext[employer] DA Test Date: 2024-07-15 Pat Name: Austyn Light Department: Room: Gender: Male Java Web Developer: : 1955 Requested By: Main Wiley Order Number: [id number] Reading MD: Measurements Intervals [place] Rate: 85 P: 64 NV: 185 QRS: 47 QRSD: 99 T: 162 QT: 381 QTc: 453 Interpretive Statements SINUS RHYTHM WITH FREQUENT VENTRICULAR PREMATURE COMPLEXES POSSIBLE LEFT ATRIAL ENLARGEMENT [-0.1mV P-WAVE IN V1/V2] ST DEVIATION AND MODERATE T-WAVE ABNORMALITY, CONSIDER ANTEROLATERAL ISCHEMIA [-0.1+ mV T-WAVE IN V3-V6] ST DEVIATION AND MODERATE T-WAVE ABNORMALITY, CONSIDER INFERIOR ISCHEMIA [-0.1+ mV T-WAVE IN II/aVF] [email or web address]
== END 2024-07-15 05:34 | disposition home or self-care (01) ==
PROVIDERS: Emergency Provider Emergency Medicine; PCP Family Medicine
DX: R06.02 Shortness of breath (principal); R60.9 Edema, unspecified; Z79.82 Long term (current) use of aspirin; Z79.84 Long term (current) use of oral hypoglycemic drugs; F17.210 Nicotine dependence, cigarettes, uncomplicated; J44.9 Chronic obstructive pulmonary disease, unspecified; E78.5 Hyperlipidemia, unspecified; I10 Essential (primary) hypertension; E11.9 Type 2 diabetes mellitus without complications; I25.10 Atherosclerotic heart disease of native coronary artery without angina pectoris
CPT/HCPCS: 36415; 71045; 80053; 83735; 83880; 84484; 85025; 93005; 96374; 99285; J3490

== ENCOUNTER 2024-12-31 16:41 | Emergency (ER) | payer MEDICARE, SELFPAY ==
--- OUTSIDE RECORDS SUMMARY | 2024-12-31 16:46 | XMS_ITS | Encounter Summary ---
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
--- OUTSIDE RECORDS SUMMARY | 2024-12-31 16:46 | XMS_ITS | Encounter Summary ---
Author Organization [facility] Address [address] [place] [address] Care Team Providers Care Track Service Person Name Role Phone Magno Vann DO Primary Care Provider +1- [phone] Encounter Details Date Type Department Care Team (Latest Contact Info) Description 11/09/2003 Outpatient Historical [facility] Pain Management Procedures [address] 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
--- OUTSIDE RECORDS SUMMARY | 2024-12-31 16:46 | XMS_ITS | Encounter Summary ---
Author Organization [facility] Address [address] [place] [address] Care Team Providers Care Laborer Wood Preserving Plant Name Role Phone Magno Vann DO Primary Care Provider +1- [phone] Encounter Details Date Type Department Care Team (Latest Contact Info) Description 10/07/2003 Outpatient Historical [facility] Imaging Services [address] [place] [address] Adam Amin MD [address] [address] THORACIC DISC DEGEN (Primary Dx) Social History Tobacco Use Types Packs/Day Years Used Date Smoking Tobacco: Never Assessed Sex and Gender Information Value Date Recorded Sex Assigned at Not on file 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
--- OUTSIDE RECORDS SUMMARY | 2024-12-31 16:46 | XMS_ITS | Encounter Summary ---
Author Organization [facility] Address [address] [place] [address] Care Team Providers Care Pipe Blanks Cut Off Saw Operator Name Role Phone Magno Vann DO Primary Care Provider +1- [phone] Encounter Details Date Type Department Care Team (Late st Contact Info) Description 10/22/2003 Outpatient Historical [facility] 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
--- OUTSIDE RECORDS SUMMARY | 2024-12-31 16:46 | XMS_ITS | Clinical Summary ---
Author Organization [facility] Address [address] Attn: Epic Prelude ADT [place] [address] Care Team Providers Care Pastoral Ministries Professor Name Role Phone Magno Vann DO Primary Care Provider +1- [phone] Allergies No known active allergies Active Problems Problem Noted Date Diagnosed Date Non-Q wave myocardial infarction 02/08/2009 Smoker 02/08/2009 Other and unspecified hyperlipidemia 02/08/2009 HTN (hypertension) 02/08/2009 CAD (coronary artery disease) 02/08/2009 Immunizations Immunization Administration Dates Next Due Influenza Vaccine Split 3+ Yrs PF IM 03/03/2009 Family History Medical History Relation Name Comments Heart Disease Mother Relation Name Status Comments Mother Social History Tobacco Use Types Packs/Day Years Used Date Smoking Tobacco: Every Day Cigarettes Alcohol Use Standard Drinks/Week Comments No 0 (1 standard drink = 0.6 oz pur e alcohol) Sex and Gender Information Value Date Recorded Sex Assigned at Not on file Legal Sex Male 3:36 AM SPEECH THERAPIST Gender Identity Not on file Sexual Orientation Not on file Plan of Treatment Health Maintenance Due Date Last Done Comments DTAP/TDAP/TD VACCINES (1 - Tdap) 1976 COLORECTAL SCREENING 2002 Colorectal Cancer Screening 2002 FIT-DNA Q 3 years 2002 FIT/FOBT Q 1 year 2002 Flex Sig/CT Colonography Q 5 years 2002 PNEUMOCOCCAL VACCINE 50+ YEARS (1 of 1 - PCV) 10/05/19 08 ZOSTER VACCINE (1 of 2) 10/05/2007 INFLUENZA VACCINE (#1) 2024 03/03/2009 RSV VACCINE (60+ or ) (1 - 1-dose 75+ series) 2032 Care Teams Pastoral Ministries Professor Relationship Specialty Start Date End Date Magno Vann DO [address] [place] [phone] PCP - General 10/07/03
--- OUTSIDE RECORDS SUMMARY | 2024-12-31 16:46 | XMS_ITS | Encounter Summary ---
Author Organization [facility] Address [address] [place] [address] Care Team Providers Care Biological Photographer Name Role Phone Magno Vann DO Primary Care Provider +1- [phone] Encounter Details Date Type Department Care Team (Latest Contact Info) Description 10/07/2003 [facility]patient [facility] [address] [place] [address] Adam Amin MD [address] [address] SPASM OF MUSCLE (Primary Dx) Social History Tobacco Use Types Packs/Day Years Used Date Smoking Tobacco: Never Assessed Sex and Gender Information Value Date Recorded Sex Assigned at Not on file 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
--- OUTSIDE RECORDS SUMMARY | 2024-12-31 16:46 | XMS_ITS | Encounter Summary ---
Author Organization [facility] Address [address] [place]: Epic Prelude ADT [place] [address] Care Team Providers Care Timber Bucker Name Role Phone Magno Vann DO Primary Care Provider +1- [phone] Encounter Details Date Type Department Care Team (Late st Contact Info) Description 06/22/2001 Outpatient Historical Non-Staff, Physician NO ADDRESS ON FILE Social History Tobacco Use Types Packs/Day Years Used Date Smoking Tobacco: Never Assessed Sex and Gender Information Value Date Recorded Sex Assigned at Not on file Legal Sex Male 3:32 AM INSOLE TACKER Gender Identity Not on file Sexual Orientation Not on file documented as of this encounter Plan of Treatment Not on file documented as of this encounter Visit Diagnoses Not on filedocumented in this encounter Care Teams Timber Bucker Relationship Specialty Start Date End Date Magno Vann DO [address] [place] [phone] PCP - General 10/07/03 documented as of this encounter
--- OUTSIDE RECORDS SUMMARY | 2024-12-31 16:46 | XMS_ITS | Encounter Summary ---
Author Organization [facility] Address [address] [place] [address] Care Team Providers Care Meter/Relay Craftsman Name Role Phone Magno Vann DO Primary Care Provider +1- [phone] Encounter Details Date Type Department Care Team (Latest Contact Info) Description 10/29/2003 Outpatient Historical [facility] [address] [place] [address] Adam Amin MD [address] [address] Cervical spinal stenosis (Primary Dx) Social History Tobacco Use Types Packs/Day Years Used Date Smoking Tobacco: Never Assessed Sex and Gender Information Value Date Recorded Sex Assigned at Not on file 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
--- OUTSIDE RECORDS SUMMARY | 2024-12-31 16:46 | XMS_ITS | Encounter Summary ---
Author Organization [facility] Address [address] [place] [address] Care Team Providers Care Purchasing/Receiving Name Role Phone Magno Vann DO Primary Care Provider +1- [phone] Encounter Details Date Type Department Care Team (Latest Contact Info) Description 12/28/2003 Outpatient Historical [facility] [address] [place] [address] Ronan Echevarria MD [address] [place] [address] CERVICALGIA (Primary Dx) Social History Tobacco Use Types Packs/Day Years Used Date Smoking Tobacco: Never Assessed Sex and Gender Information Value Date Recorded Sex Assigned at Not on file Legal Sex Male 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
--- OUTSIDE RECORDS SUMMARY | 2024-12-31 16:46 | XMS_ITS | Encounter Summary ---
Author Organization [facility] Address [address] [place] [address] Care Team Providers Care Payroll Coordinator Name Role Phone Magno Vann DO Primary Care Provider +1- [phone] Encounter Details Date Type Department Care Team (Late st Contact Info) Description 11/09/2003 Outpatient [facility] [address] [place] [address] Max Rosario MD NO ADDRESS ON FILE LUMBOSACRAL NEURITIS NOS (Primary Dx) Social History Tobacco Use Types Packs/Day Years Used Date Smoking Tobacco: Never Assessed Sex and Gender Information Value Date Recorded Sex Assigned at Not on file Legal Sex Male 3:32 AM MATTRESS STUFFER Gender Identity Not on file Sexual Orientation Not on file documented as of this encounter Plan of Treatment Not on file documented as of this encounter Visit Diagnoses Diagnosis Thoracic or lumbosacral neuritis or radiculitis, unspecified- Primary documented in this encounter Care Teams Payroll Coordinator Relationship Specialty Start Date End Date Magno Vann DO [address] [place] [phone] PCP - General 10/07/03 documented as of this encounter
--- OUTSIDE RECORDS SUMMARY | 2024-12-31 16:47 | XMS_ITS | Encounter Summary ---
Author Organization [facility] Address [address] [place] [address] Care Team Providers Care Quality Engineer Medical Device Name Role Phone Magno Vann DO Primary Care Provider +1- [phone] Encounter Details Date Type Department Care Team (Latest Contact Info) Description 08/24/2004 Outpatient Historical [facility] [address] [place] [address] Ronan Echevarria MD [address] [address] DISORDERS OF SACRUM (Primary Dx) Social History Tobacco Use Types Packs/Day Years Used Date Smoking Tobacco: Never Assessed Sex and Gender Information Value Date Recorded Sex Assigned at Not on file Legal Sex Male 3:32 AM COPY CHIEF Gender Identity Not on file Sexual Orientation Not on file documented as of this encounter Plan of Treatment Not on file documented as of this encounter Visit Diagnoses Diagnosis Disorders of sacrum- Primary documented in this encounter Care Teams Quality Engineer Medical Device Relationship Specialty Start Date End Date Magno Vann DO [address] [place] [address] PCP - General 10/07/03 documented as of this encounter
--- OUTSIDE RECORDS SUMMARY | 2024-12-31 16:47 | XMS_ITS | Clinical Summary ---
Author Organization [facility] Address [address] [place] [address] Phone Care Team Providers Care Container Washer Name Role Phone Magno Vann DO Primary Care Provider +1- [phone] Allergies No known active allergies Medications azithromycin (ZITHROMAX Z-ALLAN) 250 mg Oral tablet Take 250 mg by mouth daily. Take 2 tabs the first day and 1 tab days 2-5 Active aspirin (ZEESHAN) 325 mg Oral Tab Take 1 Tab by mouth daily. 30 Tab 11 9 Active carvedilol (COREG) 3.125 mg Oral Tab Take 1 Tab by mouth 2 times daily with meals. 60 Tab 11 9 Active clopidogrel (PLAVIX) 75 mg Oral Tab Take 1 Tab by mouth daily. 30 Tab 11 9 Active nitroglycerin (NITROSTAT) 0.[address] 1 Tab under tongue every 5 minutes as needed for Chest Pain. Not to exceed 3 doses, notify physician if chest pain not relieved, hold if systolic BP less than or equal to 100 for 3 doses. 25 Tab 3 9 Active simvastatin (ZOCOR) 20 mg Oral Tab Take 1 Tab by mouth daily with supper. 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 Gender Identity Not on file Sexual Orientation Not on file Last Filed Vital Signs Vital Sign Reading Time Taken Comments Blood Pressure 149/83 03/03/2009 4:00 AM MANAGEMENT DEVELOPMENT SPECIALIST Pulse 71 03/03/2009 4:00 AM MANAGEMENT DEVELOPMENT SPECIALIST Temperature 36.3 C (97.4 F) 03/03/2009 4:00 AM MANAGEMENT DEVELOPMENT SPECIALIST Respiratory Rate 18 03/03/2009 4:00 AM MANAGEMENT DEVELOPMENT SPECIALIST Oxygen Saturation 98% 03/03/2009 4:00 AM MANAGEMENT DEVELOPMENT SPECIALIST Inhaled Oxygen Concentration - - Weight 90 kg (198 lb 6.6 oz) 03/02/2009 6:31 AM MANAGEMENT DEVELOPMENT SPECIALIST Height 165.1 cm (5' 5 ) 03/02/2009 6:31 AM MANAGEMENT DEVELOPMENT SPECIALIST Body Mass Index 33.02 03/02/2009 6:31 AM MANAGEMENT DEVELOPMENT SPECIALIST Plan of Treatment Health Maintenance Due Date Last Done Comments DTAP/TDAP/TD VACCINES (1 - Tdap) 1976 PNEUMOCOCCAL VACCINE 50+ YEARS (1 of 2 - PCV) 10/04/18 77 COLORECTAL SCREENING 2002 Colorectal Cancer Screening 2002 FIT-DNA Q 3 years 2002 FIT/FOBT Q 1 year 2002 Flex Sig/CT Colonography Q 5 years 2002 ZOSTER VACCINE (1 of 2) 10/05/2007 RSV VACCINE (60+ or ) (1 - Risk 60-74 years 1-dose series) 2017 INFLUENZA VACCINE (#1) 2024 03/03/2009 Insurance [facility] [place]ICAID [place] Advance Directives For more information, please contact: [phone] * Full Code (Latest Code Status on File) Date Activated Date Inactivated Comments 03/02/2009 8:53 AM 03/03/2009 1:37 PM * Full Code Date Activated Date Inactivated Comments 03/02/2009 6:01 AM 03/02/2009 8:53 AM * Full Code Date Activated Date Inactivated Comments 02/07/2009 11:48 AM 02/08/2009 1:35 PM * Full Code Date Activated Date Inactivated Comments 02/06/2009 8:48 PM 02/07/2009 11:48 AM Care Teams Container Washer Relationship Specialty Start Date End Date Magno Vann DO [address] [place] [id number] PCP - General 10/07/03
--- OUTSIDE RECORDS SUMMARY | 2024-12-31 16:47 | XMS_ITS | Encounter Summary ---
Author Organization [facility] Address [address] [place] [address] Care Team Providers Care Supervisor Tumbling And Rolling Name Role Phone Magno Vann DO Primary Care Provider +1- [phone] Encounter Details Date Type Department Care Team (Latest Contact Info) Description 11/26/2003 Outpatient Historical [facility] [address] [place] [address] [place] [address] Ronan Echevarria MD [address] [place] [address] LUMBAR DISC DISPLACEMENT (Primary Dx) Social History Tobacco Use Types Packs/Day Years Used Date Smoking Tobacco: Never Assessed Sex and Gender Information Value Date Recorded Sex Assigned at Not on file 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
--- OUTSIDE RECORDS SUMMARY | 2024-12-31 16:47 | XMS_ITS | Encounter Summary ---
Author Organization [facility] Address [address] [place] [address] Care Team Providers Care Adjunct Phlebotomy Instructor Name Role Phone Magno Vann DO Primary Care Provider +1- [phone] Encounter Details Date Type Department Care Team (Latest Contact Info) Description 06/22/2004 Outpatient Historical [facility] [address] 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
--- OUTSIDE RECORDS SUMMARY | 2024-12-31 16:47 | XMS_ITS | Encounter Summary ---
Author Organization [facility] Address [address] [place] [address] Care Team Providers Care Field Crop Ii Farmworker Name Role Phone Magno Vann DO Primary Care Provider +1- [phone] Encounter Details Date Type Department Care Team (Latest Contact Info) Description 06/22/2004 Outpatient Historical [facility] [address] [address] [facility] [address] [place] [address] [place] [address] [facility] [address] [place] [address] SPONDYLOLISTHESIS (Primary Dx) Social History Tobacco Use Types Packs/Day Years Used Date Smoking Tobacco: Never Assessed Sex and Gender Information Value Date Recorded Sex Assigned at Not on file 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
--- OUTSIDE RECORDS SUMMARY | 2024-12-31 16:47 | XMS_ITS | Encounter Summary ---
Author Organization [facility] Address [address] [place] [address] Care Team Providers Care Rn Correctional Name Role Phone Magno Vann DO Primary Care Provider +1- [phone] Encounter Details Date Type Department Care Team (Late st Contact Info) Description 12/07/2003 Outpatient Historical [facility] Pain Management Procedures [address] 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
--- OUTSIDE RECORDS SUMMARY | 2024-12-31 16:47 | XMS_ITS | Encounter Summary ---
Author Organization [facility] Address [address] [place] [address] Care Team Providers Care Practicing Md Anesthesiologist Name Role Phone Magno Vann DO Primary Care Provider +1- [phone] Encounter Details Date Type Department Care Team (Latest Contact Info) Description 02/04/2004 Outpatient Historical [facility] [address] [place] [address] [place] [address] Ronan Echevarria MD [address] [place] [address] SPONDYLOLISTHESIS (Primary Dx) Social History Tobacco Use Types Packs/Day Years Used Date Smoking Tobacco: Never Assessed Sex and Gender Information Value Date Recorded Sex Assigned at Not on file Legal Sex Male 3:32 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
--- OUTSIDE RECORDS SUMMARY | 2024-12-31 16:47 | XMS_ITS | Encounter Summary ---
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
--- OUTSIDE RECORDS SUMMARY | 2024-12-31 16:47 | XMS_ITS | Encounter Summary ---
Author Organization [facility] Address [address] [place] [address] Care Team Providers Care Program Manager Rn Name Role Phone Magno Vann DO Primary Care Provider +1- [phone] Encounter Details Date Type Department Care Team (Latest Contact Info) Description 06/22/2004 Outpatient Historical [facility] [address] [place] [address] [place] [address] Ronan Echevarria MD [address] [place] [address] LUMBAGO (Primary Dx) Social History Tobacco Use Types Packs/Day Years Used Date Smoking Tobacco: Never Assessed Sex and Gender Information Value Date Recorded Sex Assigned at Not on file 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
--- OUTSIDE RECORDS SUMMARY | 2024-12-31 16:47 | XMS_ITS | Encounter Summary ---
Author Organization [facility] Address [address] [place] [address] Care Team Providers Care Lozenge Maker Helper Name Role Phone Magno Vann DO Primary Care Provider +1- [phone] Encounter Details Date Type Department Care Team (Latest Contact Info) Description 02/04/2004 Outpatient Historical [facility] [address] 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
--- OUTSIDE RECORDS SUMMARY | 2024-12-31 16:47 | XMS_ITS | Clinical Summary ---
Author Organization [facility] Address [address] [place] [address] Phone Care Team Providers Care Transfer Operator Name Role Phone Unavailable Primary Care Provider Unavailabl e Allergies No known active allergies Medications albuterol (Proventil;Vent pushpa) 90 mcg/actuation inhaler 2 PUFFS BY INHALATION ROUTE EVERY 4 TO 6 HOURS NEEDED 5 Active atorvastatin (Lipitor) 40 mg tablet Take 40 mg by mouth 1 (one) time each day. 5 Active OneTouch Verio test strips test strip TEST 1 DROP BY INJECTION ROUTE EVERY DAY DX E11.9 5 Active bumetanide (Bumex) 1 mg tablet take 1 tablet by oral route 2 times every day 5 Active metoprolol succinate XL (Toprol-XL) 100 mg 24 hr tablet TAKE 1 TABLET BY MOUTH DAILY EVERY DAY 5 Active metFORMIN XR (Glucophage-XR) 500 mg 24 hr tablet TAKE 2 TABLETS BY MOUTH DAILY WITH EVENING MEAL 5 Active HYDROcodone-catie taminophen (Masury) 10-325 mg tablet TAKE ONE TO TWO TABLETS BY MOUTH EVERY 4 TO 6 HOURS NEEDED FOR PAIN (MAX 5/DAY;HOLD WITHIN FOUR HOUR OF PLANNED SLEEP) 28 DAYS 5 Active nitroglycerin (Nitrostat) 0.4 mg SL tablet 1 TABLET UNDER TONGUE AT ONSET OF CHEST PAIN-MAY REPEAT EVERY 5 MIN FOR 3 DOSES Active ranolazine (Ranexa) 500 mg 12 hr tablet Take 500 mg by mouth 1 (one) time each day. 5 Active Farxiga 10 mg take 1 tablet by mouth daily in the morning 5 Active tamsulosin (Flomax) 0.4 mg 24 hr capsule TAKE 1 CAPSULE BY MOUTH DAILY 1/2 HOUR FOLLOWING THE SAME MEAL EACH DAY 5 Active clopidogreL (Plavix) 75 mg tablet Take 75 mg by mouth 1 (one) time each day. 9 Active esomeprazole (NexIUM) [address] capsule Take 40 mg by mouth 1 (one) time each day. 5 Active OneTouch Delica Plus Lancet 33 gauge misc Use to check BLOOD SUGAR 1 time daily 5 Active Anoro Ellipta 62.5-25 mcg/actuation blister with device inhale 1 puff by inhalation every day at the same time each day 5 Active Active Problems Problem Noted Date Diagnosed Date Chronic back pain 10/09/2024 Chronic obstructive pulmonary disease 10/09/2024 Primary hypertension 10/09/2024 Obstructive sleep apnea syndrome 10/09/2024 Peptic ulcer 10/09/2024 CAD (coronary artery disease) 02/08/2009 Non-Q wave myocardial infarction 02/08/2009 Smoker 02/08/2009 Encounters Date Type Department Care Team Description 10/09/2024 1:30 PM CDT [facility] [address] [place] [address] Alex Calvo FNP Arthropathy of cervical facet joint (Primary Dx); Spondylosis without myelopathy or radiculopathy, cervical region; Myalgia of auxiliary muscles, head and neck; Spinal stenosis, cervical region; Cervicalgia; 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; Postlaminectomy syndrome of lumbar region; Cervical post-laminectomy syndrome from Last 3 Months Immunizations Immunization Administration Dates Next Due Influenza Split 03/03/2009 Influenza Split High Dose Preservative Free IM 01/23/2024 Influenza, Quadrivalent, High Dose 03/21/2023 Influenza, Quadrivalent, PF (IIV4) 01/18,01/12/2021,01/23/2019,2017,01/11/2017 Influenza, Quadrivalent, PF, MDCK 01/22/2020 Pneumococcal Conjugate, 20-Valent 03/21/2023 RSV Vaccine (Arexvy) 01/23/2024 Zoster, Recombinant 03/23/2020,01/22/2020 Social History Tobacco Use Types Packs/Day Years Used Date Smoking Tobacco: Every Day Cigarettes Smokeless Tobacco: Never Tobacco Cessation:Ready to Q uit: Not Asked; Counseling Given: Not Answered Alcohol Use Standard Drinks/Week Comments Not Currently 0 (1 standard drink = 0.6 oz pur e alcohol) PHQ-2 Answer Date Recorded Patient Health Questionnaire-2 Score 0 10/09/2024 [facility] - Mental Health Answer Date Recorde d Little interest or pleasure in doing things Not at all 10/09/2024 Feeling down, depressed, or hopeless Not at all 10/09/2024 Feeling of Stress Not on file 10/09/2024 Sex and Gender Information Value Date Recorded Sex Assigned at Not on file Legal Sex Male 10:38 AM CDT Gender Identity Not on file Sexual Orientation Not on file Last Filed Vital Signs Vital Sign Reading Time Taken Comments Blood Pressure 109/66 10/09/2024 12:39 PM CDT Pulse 73 10/09/2024 12:39 PM CDT Temperature 37.2 C (98.9 F) 10/09/2024 12:39 PM CDT Respiratory Rate 19 10/09/2024 12:39 PM CDT Oxygen Saturation 90% 10/09/2024 12:39 PM CDT Inhaled Oxygen Concentration - - Weight 94.3 kg (208 lb) 10/09/2024 12:39 PM CDT Height 167.6 cm (5' 6 ) 10/09/2024 12:39 PM CDT Body Mass Index 33.57 10/09/2024 12:39 PM CDT Plan of Treatment Health Maintenance Due Date Last Done Comments CT Colonography 1957 Colonoscopy 1957 Colorectal Cancer Screening 1957 Creatinine Level 1957 FIT-DNA 1957 FIT 1957 FOBT 1957 Lipid Panel 1957 Potassium Level 1957 Sigmoidoscopy 1957 MMR Vaccines (1 of 1 - Standard series) 1958 DTaP,Tdap,and Td Vaccines (1 - Tdap) 1964 Varicella Vaccines (1 of 2 - 13+ 2-dose series) 1970 Social Drivers of Health (SDoH) 10/05/1975 COVID-19 Vaccine (1 - 2024- season) 2024 Influenza Vaccine (#1) 2024 , 03/21/2023, 01/18/2022, Additional history exists Complete Fall Risk Assessment 10/09/2025 10/09/2024 Depression Screening 10/10/2025 10/09/2024 Zoster Vaccines Completed 03/23/2020, 01/22/2020 Pneumococcal Vaccine: 50+ Years Completed 03/21/2023 Pneumococcal Vaccine Completed 03/21/2023 RSV Vaccines Completed 01/23/2024 HIB Vaccines Aged Out No longer eligi ble based on patient's age to complete this topic HPV Vaccines Aged Out No longer eligi ble based on patient's age to complete this topic Hepatitis A Vaccines Aged Out No long er eligible based on patient's age to complete this topic Hepatitis B Vaccines Aged Out No long er eligible based on patient's age to complete this topic IPV Vaccines Aged Out No longer eligi ble based on patient's age to complete this topic Meningococcal B Vaccine Aged Out No l onger eligible based on patient's age to complete this topic Meningococcal Vaccine Aged Out No susana renate eligible based on patient's age to complete this topic Rotavirus Vaccines Aged Out No longer eligible based on patient's age to complete this topic Insurance [employer] MEDICARE
--- OUTSIDE RECORDS SUMMARY | 2024-12-31 16:47 | XMS_ITS | Encounter Summary ---
Author Organization [facility] Address [address] [place] [address] Care Team Providers Care Dental Ceramist Name Role Phone Magno Vann DO Primary Care Provider +1- [phone] Encounter Details Date Type Department Care Team (Latest Contact Info) Description 07/27/2004 Outpatient Historical [facility] [address] [place] [address] [place] [address] Ernesto Roland PA [address] [place] [address] PAIN IN LIMB (Primary Dx) Social History Tobacco Use Types Packs/Day Years Used Date Smoking Tobacco: Never Assessed Sex and Gender Information Value Date Recorded Sex Assigned at Not on file 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
--- OUTSIDE RECORDS SUMMARY | 2024-12-31 16:47 | XMS_ITS | Encounter Summary ---
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
--- OUTSIDE RECORDS SUMMARY | 2024-12-31 16:47 | XMS_ITS | Encounter Summary ---
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 Gender Identity Not on file Sexual Orientation Not on file documented as of this encounter Plan of Treatment Not on file documented as of this encounter Procedures Procedure Name Priority Date/Time Associated Diagnosis Comments CBC WITH DIFFERENTIAL Routine 07/15/2004 5:25 AM CDT CBC WITH DIFFERENTIAL Routine 07/14/2004 6:01 AM CDT CBC WITH DIFFERENTIAL Routine 07/13/2004 6:50 AM CDT CBC WITH DIFFERENTIAL Routine 07/12/2004 11:51 AM CDT documented in this encounter Results * (ABNORMAL) CBC WITH DIFFERENTIAL (07/15/2004 5:25 AM CDT) WBC 17.0(H) 4.5 - 11.0 K/ul INTERFACE SYSTEM RBC 3.43(L) 4.60 - 6.20 Mil/ul INTERFACE SYSTEM HEMOGLOBIN 10.5(L) 14.0 - 18.0 g/dL INTERFACE SYSTEM HEMATOCRIT 30.9(L) 41.0 - 53.0 % INTERFACE SYSTEM MCV 90.1 84.0 - 103.0 Fl INTERFACE SYSTEM MCH 30.6 27.0 - 34.0 pg INTERFACE SYSTEM MCHC 34.0 30.0 - 35.0 g/dL INTERFACE SYSTEM RDW 13.3 11.0 - 14.5 percent(i nactive) INTERFACE SYSTEM PLATELETS 233 140 - 440 K/ul INTERFACE SYSTEM MPV 10.0 8.9 - 12.8 Fl INTERFACE SYSTEM NEUTROPHILS 80.7(H) 42.2 - 75.2 percent(i nactive) INTERFACE SYSTEM LYMPHOCYTES 11.4(L) 24.0 - 44.0 percent(i nactive) INTERFACE SYSTEM MONOCYTES 7.0 2.0 - 10.0 percent(i nactive) INTERFACE SYSTEM EOSINOPHILS 0.7 0.0 - 7.0 % INTERFACE SYSTEM BASOPHILS 0.2 0.0 - 1.0 percent(i nactive) INTERFACE SYSTEM NEUTROPHIL ABSOLUTE 13.7(H) 2.0 - 8.0 K/uL INTERFACE SYSTEM LYMPHOCYTE ABSOLUTE 1.9 1.2 - 4.0 K/ul INTERFACE SYSTEM MONOCYTE ABSOLUTE 1.2(H) 0.1 - 0.6 K/ul INTERFACE SYSTEM EOSINOPHIL ABSOLUTE 0.1 0.0 - 0.7 K/ul INTERFACE SYSTEM BASOPHILS ABSOLUTE 0.0 0.0 - 0.2 K/ul INTERFACE SYSTEM PERIPHERAL BLOOD SMEAR REVIEW Automated Diff INTERFACE SYSTEM 07/15/2004 5:25 AM CDT us Ronan Echevarria MD HEMATOLOGY ORDERABLES Final Re sult INTERFACE SYSTEM Refer to clinic/hospital department * (ABNORMAL) CBC WITH DIFFERENTIAL (07/14/2004 6:01 AM CDT) WBC 21.0(H) 4.5 - 11.0 K/ul INTERFACE SYSTEM RBC 3.56(L) 4.60 - 6.20 Mil/ul INTERFACE SYSTEM HEMOGLOBIN 10.7(L) 14.0 - 18.0 g/dL INTERFACE SYSTEM HEMATOCRIT 32.2(L) 41.0 - 53.0 % INTERFACE SYSTEM MCV 90.4 84.0 - 103.0 Fl INTERFACE SYSTEM MCH 30.1 27.0 - 34.0 pg INTERFACE SYSTEM MCHC 33.2 30.0 - 35.0 g/dL INTERFACE SYSTEM RDW 13.3 11.0 - 14.5 percent(i nactive) INTERFACE SYSTEM PLATELETS 225 140 - 440 K/ul INTERFACE SYSTEM MPV 10.0 8.9 - 12.8 Fl INTERFACE SYSTEM NEUTROPHILS 84.5(H) 42.2 - 75.2 percent(i nactive) INTERFACE SYSTEM LYMPHOCYTES 8.0(L) 24.0 - 44.0 percent(i nactive) INTERFACE SYSTEM MONOCYTES 7.4 2.0 - 10.0 percent(i nactive) INTERFACE SYSTEM BASOPHILS 0.1 0.0 - 1.0 percent(i nactive) INTERFACE SYSTEM NEUTROPHIL ABSOLUTE 17.8(H) 2.0 - 8.0 K/uL INTERFACE SYSTEM LYMPHOCYTE ABSOLUTE 1.7 1.2 - 4.0 K/ul INTERFACE SYSTEM MONOCYTE ABSOLUTE 1.6(H) 0.1 - 0.6 K/ul INTERFACE SYSTEM BASOPHILS ABSOLUTE 0.0 0.0 - 0.2 K/ul INTERFACE SYSTEM PERIPHERAL BLOOD SMEAR REVIEW Automated Diff INTERFACE SYSTEM 07/14/2004 6:01 AM CDT us Ronan Echevarria MD HEMATOLOGY ORDERABLES Final Re sult INTERFACE SYSTEM Refer to clinic/hospital department * (ABNORMAL) CBC WITH DIFFERENTIAL (07/13/2004 6:50 AM CDT) WBC 18.9(H) 4.5 - 11.0 K/ul INTERFACE SYSTEM RBC 3.65(L) 4.60 - 6.20 Mil/ul INTERFACE SYSTEM HEMOGLOBIN 11.2(L) 14.0 - 18.0 g/dL INTERFACE SYSTEM HEMATOCRIT 33.4(L) 41.0 - 53.0 % INTERFACE SYSTEM MCV 91.5 84.0 - 103.0 Fl INTERFACE SYSTEM MCH 30.7 27.0 - 34.0 pg INTERFACE SYSTEM MCHC 33.5 30.0 - 35.0 g/dL INTERFACE SYSTEM RDW 13.3 11.0 - 14.5 percent(i nactive) INTERFACE SYSTEM PLATELETS 209 140 - 440 K/ul INTERFACE SYSTEM MPV 9.3 8.9 - 12.8 Fl INTERFACE SYSTEM NEUTROPHILS 87.3(H) 42.2 - 75.2 percent(i nactive) INTERFACE SYSTEM LYMPHOCYTES 6.3(L) 24.0 - 44.0 percent(i nactive) INTERFACE SYSTEM MONOCYTES 6.2 2.0 - 10.0 percent(i nactive) INTERFACE SYSTEM EOSINOPHILS 0.1 0.0 - 7.0 % INTERFACE SYSTEM BASOPHILS 0.1 0.0 - 1.0 percent(i nactive) INTERFACE SYSTEM NEUTROPHIL ABSOLUTE 16.5(H) 2.0 - 8.0 K/uL INTERFACE SYSTEM LYMPHOCYTE ABSOLUTE 1.2 1.2 - 4.0 K/ul INTERFACE SYSTEM MONOCYTE ABSOLUTE 1.2(H) 0.1 - 0.6 K/ul INTERFACE SYSTEM EOSINOPHIL ABSOLUTE 0.0 0.0 - 0.7 K/ul INTERFACE SYSTEM BASOPHILS ABSOLUTE 0.0 0.0 - 0.2 K/ul INTERFACE SYSTEM PERIPHERAL BLOOD SMEAR REVIEW Automated Diff INTERFACE SYSTEM 07/13/2004 6:50 AM CDT us Ronan Echevarria MD HEMATOLOGY ORDERABLES Final Re sult INTERFACE SYSTEM Refer to clinic/hospital department * (ABNORMAL) CBC WITH DIFFERENTIAL (07/12/2004 11:51 AM CDT) WBC 12.7(H) 4.5 - 11.0 K/ul INTERFACE SYSTEM RBC 3.86(L) 4.60 - 6.20 Mil/ul INTERFACE SYSTEM HEMOGLOBIN 11.7(L) 14.0 - 18.0 g/dL INTERFACE SYSTEM HEMATOCRIT 35.4(L) 41.0 - 53.0 % INTERFACE SYSTEM MCV 91.7 84.0 - 103.0 Fl INTERFACE SYSTEM MCH 30.3 27.0 - 34.0 pg INTERFACE SYSTEM MCHC 33.1 30.0 - 35.0 g/dL INTERFACE SYSTEM RDW 13.5 11.0 - 14.5 percent(i nactive) INTERFACE SYSTEM PLATELETS 237 140 - 440 K/ul INTERFACE SYSTEM MPV 9.1 8.9 - 12.8 Fl INTERFACE SYSTEM NEUTROPHILS 85.7(H) 42.2 - 75.2 percent(i nactive) INTERFACE SYSTEM LYMPHOCYTES 9.1(L) 24.0 - 44.0 percent(i nactive) INTERFACE SYSTEM MONOCYTES 4.7 2.0 - 10.0 percent(i nactive) INTERFACE SYSTEM EOSINOPHILS 0.3 0.0 - 7.0 % INTERFACE SYSTEM BASOPHILS 0.2 0.0 - 1.0 percent(i nactive) INTERFACE SYSTEM NEUTROPHIL ABSOLUTE 10.9(H) 2.0 - 8.0 K/uL INTERFACE SYSTEM LYMPHOCYTE ABSOLUTE 1.2 1.2 - 4.0 K/ul INTERFACE SYSTEM MONOCYTE ABSOLUTE 0.6 0.1 - 0.6 K/ul INTERFACE SYSTEM EOSINOPHIL ABSOLUTE 0.0 0.0 - 0.7 K/ul INTERFACE SYSTEM BASOPHILS ABSOLUTE 0.0 0.0 - 0.2 K/ul INTERFACE SYSTEM PERIPHERAL BLOOD SMEAR REVIEW Automated Diff INTERFACE SYSTEM 07/12/2004 11:5 1 AM CDT Ronan Echevarria MD HEMATOLOGY ORDERABLES Final Re sult INTERFACE SYSTEM Refer to clinic/hospital department documented in this encounter Visit Diagnoses Diagnosis Acquired spondylolisthesis- Primary documented in this encounter Care Teams Student Worker Relationship Specialty Start Date End Date Magno Vann DO [address] [place] [phone] PCP - General 10/07/03 documented as of this encounter
--- OUTSIDE RECORDS SUMMARY | 2024-12-31 16:47 | XMS_ITS | Encounter Summary ---
Author Organization [facility] Address [address] [place] [address] Care Team Providers Care Category Planner Name Role Phone Magno Vann DO Primary Care Provider +1- [phone] Encounter Details Date Type Department Care Team (Late st Contact Info) Description 12/07/2003 Outpatient 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
--- OUTSIDE RECORDS SUMMARY | 2024-12-31 16:47 | XMS_ITS | Encounter Summary ---
Author Organization [facility] Address [address] [place] [address] Care Team Providers Care Health Care Analyst Name Role Phone Magno Vann DO Primary Care Provider +1- [phone] Encounter Details Date Type Department Care Team (Latest Contact Info) Description 12/28/2003 Outpatient Historical [facility] [address] 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
--- OUTSIDE RECORDS SUMMARY | 2024-12-31 16:47 | XMS_ITS | Encounter Summary ---
Author Organization [facility] Address [address] [place] [address] Care Team Providers Care Church Worker Name Role Phone Magno Vann DO Primary Care Provider +1- [phone] Encounter Details Date Type Department Care Team (Latest Contact Info) Description 12/09/2003 Outpatient Historical [facility] [address] [place] [address] Adam Amin MD [address] [address] CERV SPONDYL W MYELOPATH (Primary Dx); Cervical spinal stenosis Social History Tobacco Use Types Packs/Day Years Used Date Smoking Tobacco: Never Assessed Sex and Gender Information Value Date Recorded Sex Assigned at Not on file 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
--- OUTSIDE RECORDS SUMMARY | 2024-12-31 16:47 | XMS_ITS | Encounter Summary ---
Author Organization [facility] Address [address] [place] [address] Care Team Providers Care Centrifugal Chiller Technician Name Role Phone Magno Vann DO Primary Care Provider +1- [phone] Encounter Details Date Type Department Care Team (Latest Contact Info) Description 07/27/2004 Outpatient Historical [facility] [address] 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
--- OUTSIDE RECORDS SUMMARY | 2024-12-31 16:47 | XMS_ITS | Encounter Summary ---
Author Organization [facility] Address [address] [place] [address] Care Team Providers Care Stripping Cutter And Winder Name Role Phone Magno Vann DO Primary Care Provider +1- [phone] Encounter Details Date Type Department Care Team (Latest Contact Info) Description 11/26/2003 Outpatient Historical [facility] [address] 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
--- OUTSIDE RECORDS SUMMARY | 2024-12-31 16:47 | XMS_ITS | Encounter Summary ---
Author Organization [facility] Address [address] [place] [address] Care Team Providers Care Inserting Press Operator Name Role Phone Magno Vann DO Primary Care Provider +1- [phone] Encounter Details Date Type Department Care Team (Latest Contact Info) Description 02/09/2009 Ancillary Orders [facility] Cardiology- [place] [address] [place] [address] Michael Brandt MD NO ADDRESS ON FILE Non-Q Wave Myocardial Infarction (CMS/HCC); Coronary Atherosclerosis of [place] Coronary Artery Social History Tobacco Use Types Packs/Day Years Used Date Smoking Tobacco: Every Day Cigarettes Alcohol Use Standard Drinks/Week Comments No 0 (1 standard drink = 0.6 oz pur e alcohol) Sex and Gender Information Value Date Recorded Sex Assigned at Not on file Legal Sex Male 3:[address] Gender Identity Not on file Sexual Orientation Not on file documented as of this encounter Plan of Treatment Not on file documented as of this encounter Results * CL CORONARY INTERVENTION (03/02/2009 8:[address]CHAN[address]) [facility] - 03/02/2009 8:[address]CHANIC 1. Two vessel coronary artery disease. 2. The previously inserted distal circumflex stents remain widely patent. 3. Angiomax was used. 4. Successful multivessel intervention today with insertion of one XIENCE drug-eluting stent in the first obtuse marginal branch of the left posterior circumflex coronary artery and insertion of one XIENCE drug-eluting stent in the proximal right coronary artery. klb/ / D [id number] V [id number] [facility] OFF[facility] - 03/02/2009 8:[address]CHANIC DATE OF PROCEDURE: 03/02/2009 PROCEDURE TITLE: Multivessel intervention with insertion of one XIENCE drug-eluting stent in the first obtuse marginal branch of the left posterior circumflex coronary artery, insertion of one XIENCE drug-eluting stent in the proximal right coronary artery. INDICATIONS: Angina, coronary artery disease, recent non-ST segment elevation myocardial infarction. DESCRIPTION OF PROCEDURE: After carefully discussing potential benefits/risks of and alternatives to cardiac catheterization and possible intervention at length with the patient and his , informed consent was obtained. Continuous blood pressure, electrocardiogram, and oxygen saturation monitoring were utilized. Carefully titrated conscious sedation was achieved. Following infiltration of 1% lidocaine local anesthetic, a 6 Sami left femoral arterial sheath was inserted over a flexible guidewire using single-wall technique. Angiomax was utilized and guided by activated clotting time analysis. There were no apparent complications. Left coronary angiography was performed with a 6 Sami XB 3.5 guiding catheter. The left main and left anterior descending coronary arteries appear to be free of significant narrowing. A small ramus branch is present and free of significant narrowing. The previously inserted distal circumflex stents remain widely patent with excellent flow. The proximal circumflex is 20% narrowed. The first obtuse marginal branch is 75% narrowed proximally. Intervention of the first obtuse marginal branch was performed. A 0.014 inch BMW guidewire was passed cautiously into the distal obtuse marginal. Primary stenting was performed with a 2.5 x 12 millimeter XIENCE drug-eluting stent. This was dilated to 16 atmospheres pressure. Follow-up angiography showed an excellent result with no significant residual narrowing in the stented segment. AJ grade 3 flow was maintained. The vessel was observed for several minutes and maintained a stable angiographic appearance. At this point, attention was turned to the right coronary artery. Right coronary angiography was performed with a 6-4 right Lisa diagnostic catheter. The proximal right coronary artery is approximately 75% narrowed. The mid vessel is 30-40% narrowed. The distal vessel has minor plaquing. Intervention of the proximal right coronary artery was performed with a 6 Sami JR4 side-holed guiding catheter. A 0.014 inch BMW guidewire was passed cautiously into the posterolateral branch of the right coronary artery. Primary stenting of the proximal narrowing was performed with a 2.75 x 12 millimeter XIENCE drug-eluting stent. This was dilated to 16 atmospheres pressure. I went back and post-dilated the proximal two-thirds of this stent with a 3.0 millimeter Quantum [place] balloon. Follow-up angiography showed a very good result with no significant residual narrowing in the stented segment. AJ grade 3 flow was maintained. The vessel was observed for several minutes and maintained a stable angiographic appearance. At this point, the intervention was terminated. The femoral sheath was sutured in place. Excellent hemostasis was documented and pedal pulses were unchanged. The patient was transferred to the catheterization lab recovery unit in stable condition. Procedure Note Michael Brandt MD - 03/02/2009 DATE OF PROCEDURE: 03/02/2009 PROCEDURE TITLE: Multivessel intervention with insertion of one XIENCEdrug- eluting stent in the first obtuse marginal branch of the leftposterior circumflex coronary artery, insertion of one XIENCE drug-elutingstent in the proximal right coronary artery. INDICATIONS: Angina, coronary artery disease, recent non-ST segmentelevation myocardial infarction. DESCRIPTION OF PROCEDURE: After carefully discussing potentialbenefits/risks of and alternatives to cardiac catheterization and possibleintervention at length with the patient and his , informed consent wasobtained. Continuous blood pressure, electrocardiogram, and oxygensaturation monitoring were utilized. Carefully titrated conscious sedationwas achieved. Following infiltration of 1% lidocaine local anesthetic, a 6French left femoral arterial sheath was inserted over a flexible guidewireusing single-wall technique. Angiomax was utilized and guided by activatedclotting time analysis. There were no apparent complications. Left coronary angiography was performed with a 6 Sami XB 3.5 guidingcatheter. The left main and left anterior descending coronary arteriesappear to be free of significant narrowing. A small ramus branch ispresent and free of significant narrowing. The previously inserted distalcircumflex stents remain widely patent with excellent flow. The proximalcircumflex is 20% narrowed. The first obtuse marginal branch is 75%narrowed proximally. Intervention of the first obtuse marginal branch was performed. A 0.014inch BMW guidewire was passed cautiously into the distal obtuse marginal.Primary stenting was performed with a 2.5 x 12 millimeter XIENCEdrug-eluting stent. This was dilated to 16 atmospheres pressure. Follow-upangiography showed an excellent result with no significant residualnarrowing in the stented segment. AJ grade 3 flow was maintained. Thevessel was observed for several minutes and maintained a stableangiographic appearance. At this point, attention was turned to the rightcoronary artery. Right coronary angiography was performed with a 6-4 right Judkinsdiagnostic catheter. The proximal right coronary artery is efdsourttkovq26% narrowed. The mid vessel is 30-40% narrowed. The distal vessel hasminor plaquing. Intervention of the proximal right coronary artery was performed with a 6French JR4 side-holed guiding catheter. A 0.014 inch BMW guidewire waspassed cautiously into the posterolateral branch of the right coronaryartery. Primary stenting of the proximal narrowing was performed with a2.75 x 12 millimeter XIENCE drug-eluting stent. This was dilated to 16atmospheres pressure. I went back and post-dilated the proximal two-thirdsof this stent with a 3.0 millimeter Quantum [place] balloon. Follow-upangiography showed a very good result with no significant residualnarrowing in the stented segment. AJ grade 3 flow was maintained. Thevessel was observed for several minutes and maintained a stableangiographic appearance. At this point, the intervention was terminated. The femoral sheath was sutured in place. Excellent hemostasis wasdocumented and pedal pulses were unchanged. The patient was transferred tothe catheterization lab recovery unit in stable condition. IMPRESSION 1. Two vessel coronary artery disease. 2. The previously inserted distal circumflex stents remain widelypatent. 3. Angiomax was used. 4. Successful multivessel intervention today with insertion of one XIENCEdrug- eluting stent in the first obtuse marginal branch of the leftposterior circumflex coronary artery and insertion of one XIENCEdrug-eluting stent in the proximal right coronary artery. klb/ / D [id number] V [id number] us Michael Brandt MD FLUOROSCOPY ORDERABLES Final R [facility] documented in this encounter Visit Diagnoses Diagnosis Non-Q wave myocardial infarction (CMS/HCC) Acute myocardial infarction, subendocardial infarction, episode of care unspecified Coronary atherosclerosis of [place] coronary artery Non-Q wave myocardial infarction (CMS/HCC) Acute myocardial infarction, subendocardial infarction, episode of care unspecified CAD (coronary artery disease) Coronary atherosclerosis of unspecified type of vessel, [place] or graft Coronary atherosclerosis of [place] coronary artery documented in this encounter Care Teams Inserting Press Operator Relationship Specialty Start Date End Date Magno Vann DO [address] [place] [phone] PCP - General 10/07/03 documented as of this encounter
--- OUTSIDE RECORDS SUMMARY | 2024-12-31 16:47 | XMS_ITS | Encounter Summary ---
Author Organization [facility] Address [address] [place] [address] Care Team Providers Care Design Analyst Name Role Phone Magno Vann DO Primary Care Provider +1- [phone] Encounter Details Date Type Department Care Team (Latest Contact Info) Description 06/22/2004 Outpatient Historical [facility] [address] [place] [id number] [place] [address] [facility] [address] [place] [address] Spondylolisthesis (Primary Dx) Social History Tobacco Use Types Packs/Day Years Used Date Smoking Tobacco: Never Assessed Sex and Gender Information Value Date Recorded Sex Assigned at Not on file 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
--- OUTSIDE RECORDS SUMMARY | 2024-12-31 16:47 | XMS_ITS | Encounter Summary ---
Author Organization [facility] Address [address] [place] [address] Care Team Providers Care Aws Architect Name Role Phone Magno Vann DO Primary Care Provider +1- [phone] Encounter Details Date Type Department Care Team (Late st Contact Info) Description 11/23/2003 Outpatient Historical [facility] Pain Management Procedures [address] 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
--- OUTSIDE RECORDS SUMMARY | 2024-12-31 16:47 | XMS_ITS | Encounter Summary ---
Author Organization [facility] Address [address] [place] [address] Care Team Providers Care Director Of Creative Services Name Role Phone Magno Vann DO Primary Care Provider +1- [phone] Encounter Details Date Type Department Care Team (Latest Contact Info) Description 11/23/2003 Outpatient Historical [facility] [address] [place] [address] Max Rosario MD NO ADDRESS ON FILE LUMBOSACRAL NEURITIS NOS (Primary Dx); ACQ SPONDYLOLISTHESIS Social History Tobacco Use Types Packs/Day Years Used Date Smoking Tobacco: Never Assessed Sex and Gender Information Value Date Recorded Sex Assigned at Not on file 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
--- OUTSIDE RECORDS SUMMARY | 2024-12-31 16:47 | XMS_ITS | Encounter Summary ---
Author Organization [facility] Address [address] [place] [address] Care Team Providers Care Buyer Liaison Name Role Phone Magno Vann DO Primary Care Provider +1- [phone] Encounter Details Date Type Department Care Team (Latest Contact Info) Description 12/07/2003 Outpatient Historical [facility] PreAdmission [facility] [address] 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
--- OUTSIDE RECORDS SUMMARY | 2024-12-31 16:47 | XMS_ITS | Encounter Summary ---
Author Organization [facility] Address [address] [place] [address] Care Team Providers Care Cotton Expert Name Role Phone Magno Vann DO Primary Care Provider +1- [phone] Encounter Details Date Type Department Care Team (Latest Contact Info) Description 08/24/2004 Outpatient Historical [facility] [address] [place] [address] Ernesto Roland PA [address] [place] [address] MYALGIA AND MYOSITIS NOS (Primary Dx) Social History Tobacco Use Types Packs/Day Years Used Date Smoking Tobacco: Never Assessed Sex and Gender Information Value Date Recorded Sex Assigned at Not on file 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
--- OUTSIDE RECORDS SUMMARY | 2024-12-31 16:47 | XMS_ITS | Encounter Summary ---
Author Organization [facility] Address [address] [place] [address] Care Team Providers Care Converting Technician Name Role Phone Magno Vann DO Primary Care Provider +1- [phone] Encounter Details Date Type Department Care Team (Latest Contact Info) Description 06/22/2004 Outpatient Historical [facility] Pre[facility]mission [facility] [address] 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
[2024-12-31 16:54] VITALS: BP 103/66; PULSE 63; TEMP 36.8; O2SAT 96; BMI 30.4
--- NOTE | 2024-12-31 17:03 | CTR_ITS ---
PROCEDURE INFORMATION: Exam: CT Lumbar Spine Without Contrast Exam date and time: 12/31/2024 5:29 PM Age: 69 years old Clinical indication: Pain; Lumbago with sciatica; Left; Prior surgery; Surgery date: 6+ months; Surgery type: Lspine; Additional info: Low back pain, left leg pain TECHNIQUE: Imaging protocol: Computed tomography of the lumbar spine without contrast. Radiation optimization: All CT scans at this facility use at least one of these dose optimization techniques: automated exposure control; mA and/or kV adjustment per patient size (includes targeted exams where dose is matched to clinical indication); or iterative reconstruction. COMPARISON: CR XR lumbar spine min 4V [id number] 03/23/2022 10:33 AM RADIATION DOSE METRICS: Total DLP (mGy-cm): 845.6 FINDINGS: Bones/joints: Preserved lumbar vertebral body heights . No acute displaced fractures. There is 9 mm of anterolisthesis of L5 on S1. There is minimal retrolisthesis of L3 on L4. Multilevel facet and degenerative disc changes. Multilevel degenerative disc bulges and posterior disc osteophyte complex. This is most prominent at L3-L4 where there is moderate to severe spinal canal stenosis. Varying degrees of multilevel neural foraminal narrowing also present. Postsurgical changes related to L5-S1 posterior fusion. The hardware itself appears intact without definitive perihardware lucencies. Soft tissues: Unremarkable. Other findings: There is no paraspinal abnormality. CT/CT lumbar spine wo con* [id number] IMPRESSION: No acute lumbar spine fracture. Multilevel degenerative changes greatest at L3-L4. This results in moderate to severe spinal canal stenosis.
--- NOTE | 2024-12-31 17:06 | W.ED.BACK ---
HPI - Back Pain/Injury General: Chief Complaint: Back Pain/Injury Stated Complaint: Lower Back Pain Time Seen by Provider: 12/31/24 17:01 History of Present Illness: 69-year-old man with a history of ischemic cardiomyopathy, migraine headaches, chronic pain syndrome, chronic low back pain, coronary artery disease, hypertension, hyperlipidemia, COPD and diabetes who presents to the emergency room with low back pain. Says he has chronic back pain but is worsened over the last week. He said he twisted and started hurting. He has pain down his left leg. He says he was on chronic pain control but when his pain doctor left he no longer had anybody to write him pain medications. No saddle numbness, no urinary retention or incontinence, no focal motor deficit, no sensory deficit. no recent fever. no cough. no shortness of breath. no chest pain. no abdominal pain. no nausea or vomiting. no dysuria. no altered mental status. no edema. Related Data Home Medications ?Medication ?Instructions ?Recorded ?Confirmed hydrocodone 10 mg-acetaminophen 1 tab PO QID PRN pain 04/10/19 06/18/23 325 mg tablet metformin 500 mg tablet 500 mg PO DAILY 04/10/19 06/18/23 aspirin 81 mg tablet,delayed 81 mg PO DAILY 07/17/19 06/18/23 release (Adult Aspirin Regimen) omega-3 fatty acids 1,000 mg 1,000 mg PO DAILY 01/09/20 06/18/23 capsule (Fish Oil Concentrate) dapagliflozin propanediol 5 mg 5 mg PO QAM 02/10/22 06/18/23 tablet (Farxiga) tamsulosin 0.4 mg PO DAILY 02/10/22 06/18/23 Previous Rx's ?Medication ?Instructions ?Recorded prasugrel HCl 10 mg tablet 10 mg PO DAILY #90 tabs 12/13/22 ranolazine 500 mg tablet,extended 500 mg PO DAILY #30 tabs 02/08/23 release,12 hr metoprolol succinate 100 mg 100 mg PO DAILY #90 tabs 03/05/23 tablet,extended release 24 hr atorvastatin 40 mg tablet 40 mg PO DAILY #30 tabs 03/13/23 nitroglycerin 0.4 mg sublingual 0.4 mg sublingual Q5M PRN chest 05/10/23 tablet pain #25 tabs bumetanide 2 mg tablet 2 mg PO DAILY #30 tabs 07/15/24 cyclobenzaprine 10 mg tablet 10 mg PO Q8H PRN muscle spasm #20 12/31/24 tabs dexamethasone 6 mg tablet 6 mg PO DAILY 5 days #5 tabs 12/31/24 hydrocodone 5 mg-acetaminophen 325 1 tab PO Q6H PRN pain #20 tabs 12/31/24 mg tablet Allergies Allergy/AdvReac Type Severity Reaction Status Date / Time No Known Allergies Allergy Verified 12/31/24 16:58 Review of Systems Narrative: Constitutional symptoms: Negative except as documented in HPI. Skin symptoms: Negative except as documented in HPI. Eye symptoms: Negative except as documented in HPI. ENMT symptoms: Negative except as documented in HPI. Respiratory symptoms: Negative except as documented in HPI. Cardiovascular symptoms: Negative except as documented in HPI. Gastrointestinal symptoms: Negative except as documented in HPI. Genitourinary symptoms: Negative except as documented in HPI. Musculoskeletal symptoms: Negative except as documented in HPI. Neurologic symptoms: Negative except as documented in HPI. Psychiatric symptoms: Negative except as documented in HPI. Endocrine symptoms: Negative except as documented in HPI. PFSH ED PFSH: Medical History (Updated 12/31/24 @ 18:28 by Noni Vallecillo MD) Chest pain Obesity Ischemic cardiomyopathy Chronic migraine Sleep apnea Bilateral foot-drop Cervical spondylolysis Chronic renal disease Low back pain CAD (coronary artery disease) Myocardial infarct, old Peptic ulcer disease Hypertension Dyslipidemia Chronic pain disorder COPD (chronic obstructive pulmonary disease) Temporal arteritis Spinal stenosis Facet joint disease of cervical region Bilateral chronic knee pain Degenerative disc disease Neck pain Multinodular thyroid Diabetes mellitus Surgical History H/O right knee surgery History of back surgery Hx of excision of lamina of cervical vertebra for decompression of spinal cord History of coronary angioplasty with insertion of stent History of coronary artery stent placement H/O neck surgery Family History Father No problems noted. Mother , 81yrs Cancer Liver failure Social History Smoking and tobacco/nicotine status: current every day tobacco/nicotine user cigarettes Packs smoked per day: 0.5 Years cigarettes smoked: 41 Quit status (tobacco/nicotine): not considering quitting Alcohol intake: never Substance/Drug Use: never Lives independently: Yes Household members: significant other Marital status: Number of children: 2 Highest education level completed: 11th Grade Current occupational status: disabled Do you think of yourself as: Straight/Heterosexual Current gender identity: Male Physical Exam Narrative: EXAM NARRATIVE: General: Alert, no acute distress. Head: Normocephalic Neck: Trachea midline Eye: Extraocular movements are intact. Ears, nose, mouth and throat: Oral mucosa moist Respiratory: Respirations are non-labored Musculoskeletal: Normal ROM Back: no step off, no focal tenderness, some paraspinal muscle tenderness Neurological: Alert and oriented, No focal neurological deficit observed. Psychiatric: Cooperative, appropriate mood & affect. Course Vital Signs: Vital signs: Vital Signs Temperature 98.2 F 12/31/24 16:54 Pulse Rate 61 12/31/24 18:25 Blood Pressure 148/96 12/31/24 18:25 Pulse Oximetry 97 12/31/24 18:25 Oxygen Delivery Me thod Room Air 12/31/24 16:54 MDM - Back Pain/Injury Medical Decision Making Medical decision making: Differential diagnosis including but not limited to and based on the above HPI, review of systems and physical exam: Given the patient's history of surgical intervention in the past I will do a CT. This seems to be sciatic pain and he has no focal motor or sensory deficits. So I will treat and have him follow-up with his PCP or his spinal surgeon. Orders placed to evaluate differential diagnosis based on the above differential, HPI and physical exam CT of lumbar spine: No acute fractures. Multilevel degenerative changes. Moderate to severe spinal stenosis. This is known and reported in his past medical history. This was reviewed and interpreted by myself the emergency room physician. I also reviewed the radiology report. I reviewed the patient's medical record. 69-year-old man with a history of ischemic cardiomyopathy, migraine headaches, chronic pain syndrome, chronic low back pain, coronary artery disease, hypertension, hyperlipidemia, COPD and diabetes Reexamination: Patient remained stable. No increased work of breathing. No altered mental status. No focal motor deficits. Pain seems to be better improved. Assessment and plan: Sciatica Lumbar strain ? IV Dilaudid, IV Norflex and IV Decadron in the emergency room - Discharged home - Discussed plan with patient. Answered any questions. - Evaluation and treatment of this problem were appropriate in the emergency setting. Labs Radiology Impressions Lumbar Spine CT 12/31/24 17:03 IMPRESSION: No acute lumbar spine fracture. Multilevel degenerative changes greatest at L3-L4. This results in moderate to severe spinal canal stenosis. Pelvis CT 12/31/24 17:26 IMPRESSION: No acute osseous abnormality. [id number] degenerative changes of the hip joints. All radiology interpretation(s) finalized by discharge Discharge Plan Discharge Patient Disposition: Home Clinical Impression: Lumbar radiculopathy, Strain of lumbar region, Sciatica Condition: Stable Prescriptions: New cyclobenzaprine 10 mg tablet 10 mg PO Q8H PRN (Reason: muscle spasm) Qty: 20 0RF hydrocodone-acetaminophen 5-325 mg tablet 1 tab PO Q6H PRN (Reason: pain) Qty: 20 0RF dexamethasone 6 mg tablet 6 mg PO DAILY 5 Days Qty: 5 0RF No Action aspirin [Adult Aspirin Regimen] 81 mg tablet,delayed release (DR/EC) 81 mg PO DAILY hydrocodone-acetaminophen 10-325 mg tablet 1 tab PO QID PRN (Reason: pain) Rx Instructions: Hold 4H of planned sleep metformin 500 mg tablet 500 mg PO DAILY omega-3 fatty acids [Fish Oil Concentrate] 1,000 mg capsule 1,000 mg PO DAILY prasugrel HCl 10 mg tablet 10 mg PO DAILY Qty: 90 0RF Rx Instructions: MUST MAKE AN APPOINTMENT AND BE SEEN PRIOR TO ANY MORE REFILLS ranolazine 500 mg tablet extended release 12 hr 500 mg PO DAILY Qty: 30 0RF Rx Instructions: patient needs appointment for further refills metoprolol succinate 100 mg tablet extended release 24 hr 100 mg PO DAILY Qty: 90 3RF atorvastatin 40 mg tablet 40 mg PO DAILY Qty: 30 0RF Rx Instructions: patient needs appointment for further refills nitroglycerin 0.4 mg tablet, sublingual 0.4 mg SUBLINGUAL Q5M PRN (Reason: chest pain) Qty: 25 0RF Rx Instructions: patient needs appointment for further refills tamsulosin 0.4 mg capsule 0.4 mg PO DAILY Farxiga 5 mg Tablet 5 mg PO QAM bumetanide 2 mg tablet 2 mg PO DAILY Qty: 30 0RF Discharge Orders: Discharge ED (Routine); Ordered 12/31/24 Ordered By: Noni Vallecillo Referrals: Magno Vann DO [Primary Care Provider, Family Practice] Discharge Diet: Usual diet Discharge Activity: Increase activity as tolerated Patient Instructions: Opioid Safety, Pain Management, Patient Portal & Diamond Instructions Activity Restrictions/Additional Instructions: Thank you for choosing [facility] for your healthcare needs today. You have been screened and evaluated and felt safe for discharge. Health conditions do change or evolve sometimes and as such it is important that you follow up with your Primary Doctor to be re checked, 3-5 days is a general good time frame for follow up. You are always welcome to return to the ED for re assessment if your symptoms are worsening or you have new concerns Print Language: Croatian Coding Level of Care Code ED Sheet Fed Printer for Bonnie Mcqueen
--- NOTE | 2024-12-31 17:26 | CTR_ITS ---
PROCEDURE INFORMATION: Exam: CT Pelvis Without Contrast, Skeleton Exam date and time: 12/31/2024 5:29 PM Age: 69 years old Clinical indication: Hip pain; Left hip; Prior surgery; Surgery date: 6+ months; Surgery type: Lspine; Additional info: Left hip and pelvic pain TECHNIQUE: Imaging protocol: Computed tomography of the pelvis without contrast. Exam focused on the skeleton. Radiation optimization: All CT scans at this facility use at least one of these dose optimization techniques: automated exposure control; mA and/or kV adjustment per patient size (includes targeted exams where dose is matched to clinical indication); or iterative reconstruction. COMPARISON: CR XR lumbar spine min 4V [id number] 03/23/2022 10:33 AM RADIATION DOSE METRICS: Total DLP (mGy-cm): 443.5 FINDINGS: Intraperitoneal space: The intrapelvic contents are unremarkable. Bones/joints: Degenerative changes of the spine are better appreciated of the same-day CT lumbar spine examination. There is no acute fracture or traumatic malalignment involving the pelvic bones. There is no pubic symphyseal or sacroiliac joint widening. Mild to moderate degenerative changes of the hip joints. No dislocation. Soft tissues: Unremarkable. CT/CT pelvis con [id number] IMPRESSION: No acute osseous abnormality. [id number] degenerative changes of the hip joints.
[2024-12-31] MEDS: orphenadrine 30 mg/mL Inj 2 mL 60 MG IVP (17:42)
[2024-12-31] MEDS: HYDROmorphone 0.5 MG/0.5 ML INJ 1 MG IVP (17:42)
[2024-12-31 18:25] VITALS: BP 148/96; PULSE 61; O2SAT 97
[2024-12-31 18:33] VITALS: BP 123/47; PULSE 58; O2SAT 98
== END 2024-12-31 18:38 | disposition home or self-care (01) ==
PROVIDERS: Emergency Provider Emergency Medicine; PCP Family Medicine
DX: M54.16 Radiculopathy, lumbar region (principal); S39.012A Strain of muscle, fascia and tendon of lower back, initial encounter; Z79.84 Long term (current) use of oral hypoglycemic drugs; F17.210 Nicotine dependence, cigarettes, uncomplicated; I25.10 Atherosclerotic heart disease of native coronary artery without angina pectoris; E78.5 Hyperlipidemia, unspecified; J44.9 Chronic obstructive pulmonary disease, unspecified; I10 Essential (primary) hypertension; M54.32 Sciatica, left side; X58.XXXA Exposure to other specified factors, initial encounter
CPT/HCPCS: 72131; 72192; 96374; 96375; 99285; J1100; J1171; J2360

== ENCOUNTER 2025-01-08 18:26 | Inpatient (IN) | payer MEDICARE, SELFPAY ==
[2025-01-08] VITALS (7 sets, daily range): BP systolic 102–120; BP diastolic 51–69; PULSE 54–144; RESP 16–22; TEMP 36.8; O2SAT 91–97; BMI 25.8
--- NOTE | 2025-01-08 18:28 | ECG_ITS ---
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 Measurements Intervals [place] Rate: 144 P: 0 ME: 0 QRS: 67 QRSD: 91 T: 238 QT: 169 QTc: 262 Interpretive Statements ATRIAL FLUTTER/TACHYCARDIA WITH RAPID VENTRICULAR RESPONSE ST DEPRESSION, CONSIDER SUBENDOCARDIAL INJURY [0.1+ mV ST DEPRESSION] Compared to ECG 07/15/2024 03:30:04 ST (T wave) deviation now present Sinus rhythm no longer present Ventricular premature complex(es) no longer present T-wave abnormality no longer present Possible ischemia no longer present Electronically Signed On 01-08-2025 23:28:10 CDT by Satinder العراقي M.D. [email or web address]
--- NOTE | 2025-01-08 18:28 | XRR_ITS ---
PROCEDURE INFORMATION: Exam: XR Chest Exam date and time: 01/08/2025 6:43 PM Age: 69 years old Clinical indication: Pain; Chest pressure; Additional info: Chest pain TECHNIQUE: Imaging protocol: Radiologic exam of the chest. Views: 1 view. COMPARISON: CR XR chest 1V portable [id number] 07/15/2024 1:51 AM FINDINGS: Limitations: Patient rotation. Lungs: Increasing right basilar opacities may represent atelectasis or consolidation. Pleural spaces: No pleural effusion or pneumothorax. Heart/Mediastinum: Heart size is within normal limits. Bones/joints: No acute osseous abnormalities are seen. XR/XR chest 1V portable [id number] IMPRESSION: Increasing right basilar opacities may represent atelectasis or consolidation.
--- NOTE | 2025-01-08 18:32 | W.ED.CHESTPA ---
HPI - Chest Pain General: Chief Complaint: Chest Pain Stated Complaint: chest pain Time Seen by Provider: 01/08/25 18:28 History of Present Illness: 69-year-old male with a history of coronary artery disease, obesity, ischemic cardiomyopathy, chronic migraines, sleep apnea, chronic kidney disease, hypertension, hyperlipidemia, COPD, chronic pain syndrome and diabetes who presents emergency room by ambulance with chest pain. He said this started couple hours ago. Central chest pain. Pressure. No cough. No fever. No altered mental status. No nausea or vomiting. Related Data Home Medications ?Medication ?Instructions ?Recorded ?Confirmed hydrocodone 10 mg-acetaminophen 1 tab PO QID PRN pain 04/10/19 06/18/23 325 mg tablet metformin 500 mg tablet 500 mg PO DAILY 04/10/19 06/18/23 aspirin 81 mg tablet,delayed 81 mg PO DAILY 07/17/19 06/18/23 release (Adult Aspirin Regimen) omega-3 fatty acids 1,000 mg 1,000 mg PO DAILY 01/09/20 06/18/23 capsule (Fish Oil Concentrate) dapagliflozin propanediol 5 mg 5 mg PO QAM 02/10/22 06/18/23 tablet (Farxiga) tamsulosin 0.4 mg PO DAILY 02/10/22 06/18/23 Previous Rx's ?Medication ?Instructions ?Recorded prasugrel HCl 10 mg tablet 10 mg PO DAILY #90 tabs 12/13/22 ranolazine 500 mg tablet,extended 500 mg PO DAILY #30 tabs 02/08/23 release,12 hr metoprolol succinate 100 mg 100 mg PO DAILY #90 tabs 03/05/23 tablet,extended release 24 hr atorvastatin 40 mg tablet 40 mg PO DAILY #30 tabs 03/13/23 nitroglycerin 0.4 mg sublingual 0.4 mg sublingual Q5M PRN chest 05/10/23 tablet pain #25 tabs bumetanide 2 mg tablet 2 mg PO DAILY #30 tabs 07/15/24 cyclobenzaprine 10 mg tablet 10 mg PO Q8H PRN muscle spasm #20 12/31/24 tabs hydrocodone 5 mg-acetaminophen 325 1 tab PO Q6H PRN pain #20 tabs 12/31/24 mg tablet Allergies Allergy/AdvReac Type Severity Reaction Status Date / Time No Known Allergies Allergy Verified 12/31/24 16:58 Review of Systems Narrative: Constitutional symptoms: Negative except as documented in HPI. Skin symptoms: Negative except as documented in HPI. Eye symptoms: Negative except as documented in HPI. ENMT symptoms: Negative except as documented in HPI. Respiratory symptoms: Negative except as documented in HPI. Cardiovascular symptoms: Negative except as documented in HPI. Gastrointestinal symptoms: Negative except as documented in HPI. Genitourinary symptoms: Negative except as documented in HPI. Musculoskeletal symptoms: Negative except as documented in HPI. Neurologic symptoms: Negative except as documented in HPI. Psychiatric symptoms: Negative except as documented in HPI. Endocrine symptoms: Negative except as documented in HPI. PFS ED PFSH: Medical History (Updated 01/08/25 @ 20:05 by Noni Vallecillo MD) Chest pain Obesity Ischemic cardiomyopathy Chronic migraine Sleep apnea Bilateral foot-drop Cervical spondylolysis Chronic renal disease Low back pain CAD (coronary artery disease) Myocardial infarct, old Peptic ulcer disease Hypertension Dyslipidemia Chronic pain disorder COPD (chronic obstructive pulmonary disease) Temporal arteritis Spinal stenosis Facet joint disease of cervical region Bilateral chronic knee pain Degenerative disc disease Neck pain Multinodular thyroid Diabetes mellitus Surgical History H/O right knee surgery History of back surgery Hx of excision of lamina of cervical vertebra for decompression of spinal cord History of coronary angioplasty with insertion of stent History of coronary artery stent placement H/O neck surgery Family History Father No problems noted. Mother , 81yrs Cancer Liver failure Social History Smoking and tobacco/nicotine status: current every day tobacco/nicotine user cigarettes Packs smoked per day: 0.5 Years cigarettes smoked: 41 Quit status (tobacco/nicotine): not considering quitting Alcohol intake: never Substance/Drug Use: never Lives independently: Yes Household members: significant other Marital status: Number of children: 2 Highest education level completed: 11th Grade Current occupational status: disabled Do you think of yourself as: Straight/Heterosexual Current gender identity: Male Physical Exam Narrative: EXAM NARRATIVE: General: Alert, no acute distress. Skin: Warm, dry. Head: Normocephalic, atraumatic. Neck: Supple, trachea midline. Eye: Extraocular movements are intact. Ears, nose, mouth and throat: mucosa moist. Cardiovascular: Regular, Normal peripheral perfusion. Respiratory: Lungs are clear to auscultation, respirations are non-labored, breath sounds are equal, Symmetrical chest wall expansion. Gastrointestinal: Soft, Nontender, Non distended Musculoskeletal: Normal ROM, no deformity. Neurological: Alert and oriented, No focal neurological deficit observed. Psychiatric: Cooperative, appropriate mood & affect. Course Vital Signs: Vital signs: Vital Signs Temperature 98.2 F 01/08/25 18:27 Pulse Rate 119 H 01/08/25 19:15 Respiratory Rate 22 H 01/08/25 19:04 Blood Pressure 103/69 01/08/25 19:15 Pulse Oximetry 94 01/08/25 19:15 Oxygen Delivery Me thod Nasal Cannula 01/08/25 19:15 Oxygen Flow Rate 2 01/08/25 19:15 MDM - Chest Pain Medical Decision Making Medical decision making: Differential diagnosis including but not limited to and based on the above HPI, review of systems and physical exam: Orders placed to evaluate differential diagnosis based on the above differential, HPI and physical exam EK. Rate 144. Atrial flutter with rapid ventricular response, nonspecific ST changes, no ectopy, This was reviewed and interpreted by myself the ER physician at 1835. Time Chest x-ray: Increasing right basilar opacities may be atelectasis or consolidation. This was reviewed and interpreted by myself the emergency room physician. I also reviewed the radiology report. Patient has no cough. No right-sided chest pain. Just some central chest discomfort. Lab Review: Laboratory results were reviewed and interpreted by myself the emergency room physician. Mild leukocytosis with a white count of 18,000. No anemia. I reviewed the patient's medical record. 69-year-old male with a history of coronary artery disease, obesity, ischemic cardiomyopathy, chronic migraines, sleep apnea, chronic kidney disease, hypertension, hyperlipidemia, COPD, chronic pain syndrome and diabetes Reexamination: Patient's rate came down only slightly with diltiazem and his pressure dropped significantly so I changed him over to amiodarone with an amiodarone drip. And a bolus. He is now running about 115 with a blood pressure 121/58. He got down into the 90s. Mental status. No focal motor deficits. He is requesting pain medications . Consultation: I spoke with Dr. Acuna who is on-call for the hospital service who agrees to admission. Assessment and plan: A-fib with RVR Chest pain ?Diltiazem bolus and drip with decreased blood pressure and an adequate rate control so amiodarone bolus and drip were given. [place]. 500 mL normal saline bolus with the low blood pressure -I discussed the patient with the hospitalist on-call who is admitting the patient. - Discussed findings and plan with patient. Answered any questions. - All laboratory values were reviewed and interpreted personally by myself, the ER physician - All imaging was reviewed and interpreted personally by myself, the ER physician. - Evaluation and treatment of this problem were appropriate in the emergency setting Lab Data 01/08/25 18:54 01/08/25 18:54 Radiology Impressions Chest X-Ray 01/08/25 18:28 IMPRESSION: Increasing right basilar opacities may represent atelectasis or consolidation. Laboratory Results WBC 18.15 10^3/uL (3.29-11.43) H 01/08/25 18:54 RBC 5.08 10^6/uL (3.85-5.65) 01/08/25 18:54 Hgb 16.40 g/dL (11.27-16.99) 01/08/25 18:54 Hct 49.0 % (37-53) 01/08/25 18:54 MCV 96.5 fl (82-101) 01/08/25 18:54 MCH 32.3 pg (27-33) 01/08/25 18:54 MCHC 33.5 g/dL (30-55) 01/08/25 18:54 RDW 13.6 % (12.1-15.1) 01/08/25 18:54 Plt Count 270 10^3/cmm (157-399) 01/08/25 18:54 MPV 9.5 fL (7.4-10.4) 01/08/25 18:54 Neut % (Auto) 69.6 % 01/08/25 18:54 Lymph % (Auto) 22.1 % 01/08/25 18:54 Wirt % (Auto) 5.9 % 01/08/25 18:54 Eos % (Auto) 1.3 % 01/08/25 18:54 Baso % (Auto) 0.3 % 01/08/25 18:54 Neut # (Auto) 12.65 10^3/uL (1.8-7.7) H 01/08/25 18:54 Lymph # (Auto) 4.0 10^3/uL (0.8-4.8) 01/08/25 18:54 Wirt # (Auto) 1.1 10^3/uL (0.2-0.9) H 01/08/25 18:54 Eos # (Auto) 0.2 10^3/uL (0.0-0.8) 01/08/25 18:54 Baso # (Auto) 0.1 10^3/uL (0.0-0.1) 01/08/25 18:54 Nucleated RBC % (auto) 0 % 01/08/25 18:54 Nucleated RBCs # 0.0 /100WBC 01/08/25 18:54 Sodium 137 mmol/L (136-145) 01/08/25 18:54 Potassium 4.3 mmol/L (3.5-5.1) 01/08/25 18:54 Chloride 104 mmol/L (98-107) 01/08/25 18:54 Carbon Dioxide 18 mmol/L (22-29) L 01/08/25 18:54 Anion Gap 19.3 (5-19) H 01/08/25 18:54 BUN 18 mg/dL (8-23) 01/08/25 18:54 Creatinine 0.9 mg/dL (0.7-1.2) 01/08/25 18:54 GFR Calculation 84.2 mL/min (90-130) L 01/08/25 18:54 Glucose 148 mg/dL (65-115) H 01/08/25 18:54 POC Glucose 139 mg/dL (70-110) H 01/08/25 18:45 Calculated Osmolality 289 mOsm/kg (285-295) 01/08/25 18:54 Calcium 8.7 mg/dL (8.5-10.5) 01/08/25 18:54 Total Bilirubin 0.8 mg/dL (0.15-1.2) 01/08/25 18:54 AST 25 U/L (0-40) 01/08/25 18:54 ALT 59 U/L (0-41) H 01/08/25 18:54 Alkaline Phosphatase 138 U/L (40-130) H 01/08/25 18:54 Troponin T Baseline 28 ng/L (0-15) H 01/08/25 18:54 NT-Pro-B Natriuret Pep 510 pg/mL (0-125) H 01/08/25 18:54 Total Protein 6.5 g/dL (6.6-8.7) L 01/08/25 18:54 Albumin 3.8 g/dL (3.5-5.2) 01/08/25 18:54 Globulin 2.7 g/dL (1.3-4.6) 01/08/25 18:54 XR interpretation done by ED provider, pending radiology final review Clincial Decision Support The following clinical decision support tools were used to aid in care of the patient HEART Score -> History: Moderately Suspicious, EKG: Non-specific Changes, Age: 65 or more yrs, Risk Factors: >/=3 Risk Factors, Troponin: Baseline Trop 16-45 ng/L. Resulting HEART Score: 7. Discharge Plan Discharge Patient Disposition: Admitted As Inpatient Clinical Impression: Atrial fibrillation with rapid ventricular response, Chest pain Condition: Stable Coding Level of Care Code ED Tourist Information Assistant for Chg Fwd Heart Score HEART Score Components History: Moderately Suspicious EKG: Non-specific Changes Age: 65 or more yrs Risk Factors: >/=3 Risk Factors Troponin: Baseline Trop 16-45 ng/L HEART Score RESULT HEART Score: 7
--- OUTSIDE RECORDS SUMMARY | 2025-01-08 18:34 | XMS_ITS | Encounter Summary ---
Author Organization [facility] Address [address] [place] [address] Care Team Providers Care Clerical Secretary Name Role Phone Magno Vann DO Primary Care Provider +1- [phone] Encounter Details Date Type Department Care Team (Latest Contact Info) Description 12/28/2003 Outpatient Historical [facility] [address] [place] [address] Ronan Echevarria MD [address] [place] [address] CERVICALGIA (Primary Dx) Social History Tobacco Use Types Packs/Day Years Used Date Smoking Tobacco: Never Assessed Sex and Gender Information Value Date Recorded Sex Assigned at Not on file 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
--- OUTSIDE RECORDS SUMMARY | 2025-01-08 18:34 | XMS_ITS | Encounter Summary ---
Author Organization [facility] Address [address] [place] [address] Care Team Providers Care Stock Parts Inspector Name Role Phone Magno Vann DO Primary Care Provider +1- [phone] Encounter Details Date Type Department Care Team (Latest Contact Info) Description 10/07/2003 Outpatient Historical [facility] Imaging Services [address] [place] [address] Adam Amin MD [address] [address] THORACIC DISC DEGEN (Primary Dx) Social History Tobacco Use Types Packs/Day Years Used Date Smoking Tobacco: Never Assessed Sex and Gender Information Value Date Recorded Sex Assigned at Not on file 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
--- OUTSIDE RECORDS SUMMARY | 2025-01-08 18:34 | XMS_ITS | Clinical Summary ---
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
--- OUTSIDE RECORDS SUMMARY | 2025-01-08 18:34 | XMS_ITS | Encounter Summary ---
Author Organization [facility] Address [address] [place] [address] Care Team Providers Care Building Architect Name Role Phone Magno Vann DO Primary Care Provider +1- [phone] Encounter Details Date Type Department Care Team (Latest Contact Info) Description 12/28/2003 Outpatient Historical [facility] [address] 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
--- OUTSIDE RECORDS SUMMARY | 2025-01-08 18:34 | XMS_ITS | Encounter Summary ---
Author Organization [facility] Address [address] [place] [address] Care Team Providers Care Secretarial Stenographer Name Role Phone Magno Vann DO Primary Care Provider +1- [phone] Encounter Details Date Type Department Care Team (Late st Contact Info) Description 12/07/2003 Outpatient [facility] [address] [place] [address] Max Rosario MD NO ADDRESS ON FILE LUMBOSACRAL NEURITIS NOS (Primary Dx) Social History Tobacco Use Types Packs/Day Years Used Date Smoking Tobacco: Never Assessed Sex and Gender Information Value Date Recorded Sex Assigned at Not on file 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
--- OUTSIDE RECORDS SUMMARY | 2025-01-08 18:34 | XMS_ITS | Encounter Summary ---
Author Organization [facility] Address [address] [place] [address] Care Team Providers Care Director Mobile Name Role Phone Magno Vann DO Primary Care Provider +1- [phone] Encounter Details Date Type Department Care Team (Latest Contact Info) Description 10/29/2003 Outpatient [facility] [address] [place] [address] Adam Amin MD [address] [address] Cervical spinal stenosis (Primary Dx) Social History Tobacco Use Types Packs/Day Years Used Date Smoking Tobacco: Never Assessed Sex and Gender Information Value Date Recorded Sex Assigned at Not on file 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
--- OUTSIDE RECORDS SUMMARY | 2025-01-08 18:34 | XMS_ITS | Encounter Summary ---
Author Organization [facility] Address [address] [place] [address] Care Team Providers Care Operations Associate Name Role Phone Magno Vann DO Primary Care Provider +1- [phone] Encounter Details Date Type Department Care Team (Latest Contact Info) Description 10/07/2003 Outpatient Historical [facility] [address] [place] [address] Adam Amin MD [address] [address] SPASM OF MUSCLE (Primary Dx) Social History Tobacco Use Types Packs/Day Years Used Date Smoking Tobacco: Never Assessed Sex and Gender Information Value Date Recorded Sex Assigned at Not on file 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
--- OUTSIDE RECORDS SUMMARY | 2025-01-08 18:34 | XMS_ITS | Encounter Summary ---
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
--- OUTSIDE RECORDS SUMMARY | 2025-01-08 18:34 | XMS_ITS | Encounter Summary ---
Author Organization [facility] Address [address] [place] [address] Care Team Providers Care Concrete Boom Pump Operator Name Role Phone Magno Vann DO Primary Care Provider +1- [phone] Encounter Details Date Type Department Care Team (Late st Contact Info) Description 10/22/2003 Outpatient Historical [facility] 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
--- OUTSIDE RECORDS SUMMARY | 2025-01-08 18:34 | XMS_ITS | Encounter Summary ---
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
--- OUTSIDE RECORDS SUMMARY | 2025-01-08 18:34 | XMS_ITS | Encounter Summary ---
Author Organization [facility] Address [address] [place] [address] Care Team Providers Care Strip Deburrer Name Role Phone Magno Vann DO Primary Care Provider +1- [phone] Encounter Details Date Type Department Care Team (Latest Contact Info) Description 11/09/2003 Outpatient Historical [facility] Pain Management Procedures [address] [place] [address] Max Rosario MD NO ADDRESS ON FILE ACQ SPONDYLOLISTHESIS (Primary Dx) Social History Tobacco Use Types Packs/Day Years Used Date Smoking Tobacco: Never Assessed Sex and Gender Information Value Date Recorded Sex Assigned at Not on file Legal Sex Male 3:32 AM FAMILY REUNIFICATION SPECIALIST Gender Identity Not on file Sexual Orientation Not on file documented as of this encounter Plan of Treatment Not on file documented as of this encounter Visit Diagnoses Diagnosis Acquired spondylolisthesis- Primary documented in this encounter Care Teams Strip Deburrer Relationship Specialty Start Date End Date Magno Vann DO [address] [place] [phone] PCP - General 10/07/03 documented as of this encounter
--- OUTSIDE RECORDS SUMMARY | 2025-01-08 18:34 | XMS_ITS | Encounter Summary ---
Author Organization [facility] Address [address] 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
--- OUTSIDE RECORDS SUMMARY | 2025-01-08 18:34 | XMS_ITS | Encounter Summary ---
Author Organization [facility] Address [address] [place] [address] Care Team Providers Care Director Music Name Role Phone Magno Vann DO Primary Care Provider +1- [phone] Encounter Details Date Type Department Care Team (Latest Contact Info) Description 12/09/2003 Outpatient Historical [facility] [address] [place] [address] Adam Amin MD [address] [address] CERV SPONDYL W MYELOPATH (Primary Dx); Cervical spinal stenosis Social History Tobacco Use Types Packs/Day Years Used Date Smoking Tobacco: Never Assessed Sex and Gender Information Value Date Recorded Sex Assigned at Not on file Legal Sex Male 3:32 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
--- OUTSIDE RECORDS SUMMARY | 2025-01-08 18:35 | XMS_ITS | Encounter Summary ---
Author Organization [facility] Address [address] [place] [address] Care Team Providers Care Taste Tester Name Role Phone Magno Vann DO Primary Care Provider +1- [phone] Encounter Details Date Type Department Care Team (Latest Contact Info) Description 06/22/2004 Outpatient Historical [facility] [address] 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
--- OUTSIDE RECORDS SUMMARY | 2025-01-08 18:35 | XMS_ITS | Encounter Summary ---
Author Organization [facility] Address [address] [place] [address] Care Team Providers Care Dog Races Manager Name Role Phone Magno Vann DO Primary Care Provider +1- [phone] Encounter Details Date Type Department Care Team (Latest Contact Info) Description 11/23/2003 Outpatient Historical [facility] [address] [place] [address] Max Rosario MD NO ADDRESS ON FILE LUMBOSACRAL NEURITIS NOS (Primary Dx); ACQ SPONDYLOLISTHESIS Social History Tobacco Use Types Packs/Day Years Used Date Smoking Tobacco: Never Assessed Sex and Gender Information Value Date Recorded Sex Assigned at Not on file Legal Sex Male 3:32 AM 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
--- OUTSIDE RECORDS SUMMARY | 2025-01-08 18:35 | XMS_ITS | Encounter Summary ---
Author Organization [facility] Address [address] [place] [address] Care Team Providers Care Artificial Breeding Ranch Supervisor Name Role Phone Magno Vann DO Primary Care Provider +1- [phone] Encounter Details Date Type Department Care Team (Latest Contact Info) Description 07/27/2004 Outpatient Historical [facility] [address] [place] [address] [place] [address] Ernesto Roland PA [address] [place] [address] PAIN IN LIMB (Primary Dx) Social History Tobacco Use Types Packs/Day Years Used Date Smoking Tobacco: Never Assessed Sex and Gender Information Value Date Recorded Sex Assigned at Not on file 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
--- OUTSIDE RECORDS SUMMARY | 2025-01-08 18:35 | XMS_ITS | Encounter Summary ---
Author Organization [facility] Address [address] [place] [address] Care Team Providers Care Railroad Switchman Name Role Phone Magno Vann DO Primary Care Provider +1- [phone] Encounter Details Date Type Department Care Team (Latest Contact Info) Description 02/04/2004 Outpatient Historical [facility] [address] [place] [address] [place] [address] Ronan Echevarria MD [address] [place] [address] SPONDYLOLISTHESIS (Primary Dx) Social History Tobacco Use Types Packs/Day Years Used Date Smoking Tobacco: Never Assessed Sex and Gender Information Value Date Recorded Sex Assigned at Not on file 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
--- OUTSIDE RECORDS SUMMARY | 2025-01-08 18:35 | XMS_ITS | Encounter Summary ---
Author Organization [facility] Address [address] [place] [address] Care Team Providers Care Manager Port Name Role Phone Magno Vann DO Primary Care Provider +1- [phone] Encounter Details Date Type Department Care Team (Latest Contact Info) Description 12/07/2003 Outpatient Historical [facility] [address] [place] [address] 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
--- OUTSIDE RECORDS SUMMARY | 2025-01-08 18:35 | XMS_ITS | Encounter Summary ---
Author Organization [facility] Address [address] [place] [address] Care Team Providers Care Life Guard Name Role Phone Magno Vann DO Primary Care Provider +1- [phone] Encounter Details Date Type Department Care Team (Latest Contact Info) Description 11/26/2003 Outpatient Historical [facility] [address] 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
--- OUTSIDE RECORDS SUMMARY | 2025-01-08 18:35 | XMS_ITS | Encounter Summary ---
Author Organization [facility] Address [address] [place] [address] Care Team Providers Care Retail Presentation Specialist Name Role Phone Magno Vann DO Primary Care Provider +1- [phone] Encounter Details Date Type Department Care Team (Latest Contact Info) Description 08/24/2004 Outpatient Historical [facility] [address] [place] [address] [place] [address] Ernesto Roland PA [address] [place] [address] MYALGIA AND MYOSITIS NOS (Primary Dx) Social History Tobacco Use Types Packs/Day Years Used Date Smoking Tobacco: Never Assessed Sex and Gender Information Value Date Recorded Sex Assigned at Not on file 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
--- OUTSIDE RECORDS SUMMARY | 2025-01-08 18:35 | XMS_ITS | Encounter Summary ---
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
--- OUTSIDE RECORDS SUMMARY | 2025-01-08 18:35 | XMS_ITS | Encounter Summary ---
Author Organization [facility] Address [address] [place] [address] Care Team Providers Care Front Desk Manager Name Role Phone Magno Vann DO Primary Care Provider +1- [phone] Encounter Details Date Type Department Care Team (Late st Contact Info) Description 11/23/2003 Outpatient Historical [facility] Pain Management Procedures [address] 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
--- OUTSIDE RECORDS SUMMARY | 2025-01-08 18:35 | XMS_ITS | Encounter Summary ---
Author Organization [facility] Address [address] [place] [address] Care Team Providers Care Commercial Loan Officer Name Role Phone Magno Vann DO Primary Care Provider +1- [phone] Encounter Details Date Type Department Care Team (Latest Contact Info) Description 11/26/2003 Outpatient Historical [facility] [address] [place] [address] [place] [address] Ronan Echevarria MD [address] [place] [address] LUMBAR DISC DISPLACEMENT (Primary Dx) Social History Tobacco Use Types Packs/Day Years Used Date Smoking Tobacco: Never Assessed Sex and Gender Information Value Date Recorded Sex Assigned at Not on file Legal Sex Male 3: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
--- OUTSIDE RECORDS SUMMARY | 2025-01-08 18:35 | XMS_ITS | Encounter Summary ---
Author Organization [facility] Address [address] [place] [address] Care Team Providers Care Territory Account Executive Name Role Phone Magno Vann DO Primary Care Provider +1- [phone] Encounter Details Date Type Department Care Team (Latest Contact Info) Description 08/24/2004 Outpatient Historical [facility] [address] 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
--- OUTSIDE RECORDS SUMMARY | 2025-01-08 18:35 | XMS_ITS | Encounter Summary ---
Author Organization [facility] Address [address] [place] [address] Care Team Providers Care Pasteuriser Operator Name Role Phone Magno Vann DO Primary Care Provider +1- [phone] Encounter Details Date Type Department Care Team (Latest Contact Info) Description 07/12/2004 Inpatient Historical [facility] Ronan Echevarria MD [address] [address] ACQ SPONDYLOLISTHESIS (Primary Dx) Social History Tobacco Use Types Packs/Day Years Used Date Smoking Tobacco: Never Assessed Sex and Gender Information Value Date Recorded Sex Assigned at Not on file Legal Sex Male 3:32 AM LABOR SERVICE REPRESENTATIVE Gender Identity Not on file Sexual Orientation [...] Primary documented in this encounter Care Teams Pasteuriser Operator Relationship Specialty Start Date End Date Magno Vann DO [address] [place] [phone] PCP - General 10/07/03 documented as of this encounter
--- OUTSIDE RECORDS SUMMARY | 2025-01-08 18:35 | XMS_ITS | Clinical Summary ---
Author Organization [facility] Address [address] [place] [address] Phone Care Team Providers Care Sales Marketing Director Name Role Phone Magno Vann DO Primary Care Provider +1- [phone] Allergies No known active allergies Medications azithromycin [...] on file Legal Sex Male 3:32 AM SPOOL MAKER Gender Identity Not on file Sexual Orientation Not on file Last Filed Vital Signs Vital Sign Reading Time Taken Comments Blood Pressure 149/83 03/03/2009 4:00 AM SPOOL MAKER Pulse 71 03/03/2009 4:00 AM SPOOL MAKER Temperature 36.3 C (97.4 F) 03/03/2009 4:00 AM SPOOL MAKER Respiratory Rate 18 03/03/2009 4:00 AM SPOOL MAKER Oxygen Saturation 98% 03/03/2009 4:00 AM SPOOL MAKER Inhaled Oxygen Concentration - - Weight 90 kg (198 lb 6.6 oz) 03/02/2009 6:31 AM SPOOL MAKER Height 165.1 cm (5' 5 ) 03/02/2009 6:31 AM SPOOL MAKER Body Mass Index 33.02 03/02/2009 6:31 AM SPOOL MAKER Plan of Treatment Health Maintenance Due Date [...] 2017 INFLUENZA VACCINE (#1) 2024 03/03/2009 Insurance [facility] MEDICAID [place] Advance Directives For more information, please contact: [phone] * Full Code (Latest Code Status on File) Date Activated Date Inactivated Comments 03/02/2009 8:53 AM 03/03/2009 1:37 PM * Full Code Date Activated Date Inactivated Comments 03/02/2009 6:01 AM 03/02/2009 8:53 AM * Full Code Date Activated Date Inactivated Comments 02/07/2009 11:48 AM 02/08/2009 1:35 PM * Full Code Date Activated Date Inactivated Comments 02/06/2009 8:48 PM 02/07/2009 11:48 AM Care Teams Sales Marketing Director Relationship Specialty Start Date End Date Magno Vann DO [address] [place] [phone] PCP - General 10/07/03
--- OUTSIDE RECORDS SUMMARY | 2025-01-08 18:35 | XMS_ITS | Encounter Summary ---
Author Organization [facility] Address [address] [place] [address] Care Team Providers Care Plumbing Technician Name Role Phone Magno Vann DO Primary Care Provider +1- [phone] Encounter Details Date Type Department Care Team (Late st Contact Info) Description 12/07/2003 Outpatient Historical [facility] Pain Management Procedures [address] [place] [address] Max Rosario MD NO ADDRESS ON FILE BACKACHE NOS (Primary Dx) Social History Tobacco Use Types Packs/Day Years Used Date Smoking Tobacco: Never Assessed Sex and Gender Information Value Date Recorded Sex Assigned at Not on file Legal Sex Male 3:32 AM NEURODIAGNOSTIC TECHNICIAN Gender Identity Not on file Sexual Orientation Not on file documented as of this encounter Plan of Treatment Not on file documented as of this encounter Visit Diagnoses Diagnosis Backache, unspecified- Primary documented in this encounter Care Teams Plumbing Technician Relationship Specialty Start Date End Date Magno Vann DO [address] [place] [phone] PCP - General 10/07/03 documented as of this encounter
--- OUTSIDE RECORDS SUMMARY | 2025-01-08 18:35 | XMS_ITS | Encounter Summary ---
Author Organization [facility] Address [address] [place] [address] Care Team Providers Care Seed Corn Production Manager Name Role Phone Magno Vann DO Primary Care Provider +1- [phone] Encounter Details Date Type Department Care Team (Latest Contact Info) Description 02/09/2009 Ancillary Orders [facility] [place] [facility] [place] [address] [place] [address] Michael Brandt MD NO ADDRESS ON FILE Non-Q Wave Myocardial Infarction (CMS/HCC); Coronary Atherosclerosis of [place] Coronary Artery Social History Tobacco Use Types Packs/Day Years Used Date Smoking Tobacco: Every Day Cigarettes Alcohol Use Standard Drinks/Week Comments No 0 (1 standard drink = 0.6 oz pur e alcohol) Sex and Gender Information Value Date Recorded Sex Assigned at Not on file Legal Sex Male 3:32 AM MEAT STOCKER Gender Identity Not on file Sexual Orientation Not on file documented as of this encounter Plan of Treatment Not on file documented as of this encounter Results * CL CORONARY INTERVENTION (03/02/2009 8:22 AM MEAT STOCKER) [facility] - 03/02/2009 8:40 AM MEAT STOCKER 1. Two vessel coronary artery disease. 2. The previously inserted distal circumflex stents remain widely patent. 3. Angiomax was used. 4. Successful multivessel intervention today with insertion of one XIENCE drug-eluting stent in the first obtuse marginal branch of the left posterior circumflex coronary artery and insertion of one XIENCE drug-eluting stent in the proximal right coronary artery. klb/ / D [id number] V [id number] [facility] - 03/02/2009 8:40 AM MEAT STOCKER DATE OF PROCEDURE: 03/02/2009 PROCEDURE TITLE: Multivessel [...] of 1% lidocaine local anesthetic, a 6 Kazakh left femoral arterial sheath was inserted over a flexible guidewire using single-wall technique. Angiomax was utilized and guided by activated clotting time analysis. There were no apparent complications. Left coronary angiography was performed with a 6 Kazakh XB 3.5 guiding catheter. The left main [...] coronary artery was performed with a 6 [place] JR4 side-holed guiding catheter. A 0.014 inch BMW guidewire was passed cautiously into the posterolateral branch of the right coronary artery. Primary stenting of the proximal narrowing was performed with a 2.75 x 12 millimeter XIENCE drug-eluting stent. This was dilated to 16 atmospheres pressure. I went back and post-dilated the proximal two-thirds of this stent with a 3.0 millimeter Quantum [place] balloon. Follow-up angiography showed a very good [...] coronary angiography was performed with a 6 Kazakh XB 3.5 guidingcatheter. The left main and [...] catheter. The proximal right coronary artery is [id number]% narrowed. The mid vessel is 30-40% narrowed. [...] this stent with a 3.0 millimeter Quantum [place] balloon. Follow-upangiography showed a very good result [...] proximal right coronary artery. klb/ / D [id number] V [id number] us Michael Brandt MD FLUOROSCOPY ORDERABLES Final R [facility] documented in this encounter Visit Diagnoses Diagnosis Non-Q wave myocardial infarction Acute myocardial infarction, subendocardial infarction, episode of care unspecified Coronary atherosclerosis of [place] coronary artery Non-Q wave myocardial infarction Acute myocardial infarction, subendocardial infarction, episode of care unspecified CAD (coronary artery disease) Coronary atherosclerosis of unspecified type of vessel, [place] or graft Coronary atherosclerosis of [place] coronary artery documented in this encounter Care Teams Seed Corn Production Manager Relationship Specialty Start Date End Date Magno Vann DO [address] [place] [address] PCP - General 10/07/03 documented as of this encounter
--- OUTSIDE RECORDS SUMMARY | 2025-01-08 18:35 | XMS_ITS | Encounter Summary ---
Author Organization [facility] Address [address] [place] [address] Care Team Providers Care Hand Welt Butter Name Role Phone Magno Vann DO Primary Care Provider +1- [phone] Encounter Details Date Type Department Care Team (Latest Contact Info) Description 02/04/2004 Outpatient Historical [facility] [address] [place] [address] Ronan Echevarria MD [address] [address] Spondylolisthesis (Primary Dx) Social History Tobacco Use Types Packs/Day Years Used Date Smoking Tobacco: Never Assessed Sex and Gender Information Value Date Recorded Sex Assigned at Not on file Legal Sex Male 3:32 AM PATIENT ACCOUNT REPRESENTATIVE Gender Identity Not on file Sexual Orientation Not on file documented as of this encounter Plan of Treatment Not on file documented as of this encounter Visit Diagnoses Diagnosis Spondylolisthesis- Primary Congenital spondylolisthesis documented in this encounter Care Teams Hand Welt Butter Relationship Specialty Start Date End Date Magno Vann DO [address] [place] [address] PCP - General 10/07/03 documented as of this encounter
--- OUTSIDE RECORDS SUMMARY | 2025-01-08 18:35 | XMS_ITS | Encounter Summary ---
Author Organization [facility] Address [address] [place] [address] Care Team Providers Care Bag Sewer Name Role Phone Magno Vann DO Primary Care Provider +1- [phone] Encounter Details Date Type Department Care Team (Latest Contact Info) Description 07/27/2004 Outpatient Historical [facility] [address] 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
--- OUTSIDE RECORDS SUMMARY | 2025-01-08 18:35 | XMS_ITS | Encounter Summary ---
Author Organization [facility] Address [address] [place] [address] Care Team Providers Care Button Tufter Name Role Phone Magno Vann DO Primary Care Provider +1- [phone] Encounter Details Date Type Department Care Team (Latest Contact Info) Description 06/22/[address] 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
--- OUTSIDE RECORDS SUMMARY | 2025-01-08 18:35 | XMS_ITS | Encounter Summary ---
Author Organization [facility] Address [address] [place] [address] Care Team Providers Care Lamp Cleaner Street Light Name Role Phone Magno Vann DO Primary Care Provider +1- [phone] Encounter Details Date Type Department Care Team (Latest Contact Info) Description 06/22/2004 Outpatient Historical [facility] [address] [place] [id number] [place] [address] [facility] [address] [place] [address] Spondylolisthesis (Primary Dx) Social History Tobacco Use Types Packs/Day Years Used Date Smoking Tobacco: Never Assessed Sex and Gender Information Value Date Recorded Sex Assigned at Not on file 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
--- OUTSIDE RECORDS SUMMARY | 2025-01-08 18:35 | XMS_ITS | Clinical Summary ---
Author Organization [facility] Address [address] [place] [address] Phone Care Team Providers Care Supervisor Statement Clerks Name Role Phone Unavailable Primary Care Provider [...] WITH EVENING MEAL 5 Active HYDROcodone-catie taminophen ([place]) 10-325 mg tablet TAKE ONE TO TWO [...] [facility] [address] [place] [id number] Alex Calvo FNP Arthropathy of cervical facet [...] Recorded Patient Health Questionnaire-2 Score 0 10/09/2024 [facility] - Mental Health Answer Date Recorde d [...]
--- OUTSIDE RECORDS SUMMARY | 2025-01-08 18:35 | XMS_ITS | Encounter Summary ---
Author Organization [facility] Address [address] [place] [address] Care Team Providers Care Machine Tool Electrician Name Role Phone Magno Vann DO Primary Care Provider +1- [phone] Encounter Details Date Type Department Care Team (Latest Contact Info) Description 06/22/2004 Outpatient Historical [facility] [address] [place] [address] Ronan Echevarria MD [address] [place] [address] LUMBAGO (Primary Dx) Social History Tobacco Use Types Packs/Day Years Used Date Smoking Tobacco: Never Assessed Sex and Gender Information Value Date Recorded Sex Assigned at Not on file 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
--- OUTSIDE RECORDS SUMMARY | 2025-01-08 18:35 | XMS_ITS | Encounter Summary ---
Author Organization [facility] Address [address] [place] [address] Care Team Providers Care Electrical Controls Technician Name Role Phone Magno Vann DO Primary Care Provider +1- [phone] Encounter Details Date Type Department Care Team (Latest Contact Info) Description 06/22/2004 Outpatient Historical [facility] [address] 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
[2025-01-08] MEDS: dilTIAZem 5 mg/mL SDV 5 mL 10 MG IVP (18:54)
[2025-01-08] MEDS: DILTIAZEM HCL/D5W 125 MG/125 ML BAG IV (18:58)
[2025-01-08 19:04] LABS: Hematocrit 49.0 % (37-53); Hemoglobin 16.40 g/dL (11.27-16.99); Mean Corpuscular HGB Conc 33.5 g/dL (30-55); Mean Corpuscular Hemoglobin 32.3 pg (27-33); Mean Corpuscular Volume 96.5 fl (82-101); Nucleated Red Blood Cells % 0 %; Platelet Count 270 10^3/cmm (157-399); Red Blood Count 5.08 10^6/uL (3.85-5.65); White Blood Count 18.15 10^3/uL (3.29-11.43)
[2025-01-08 19:42] LABS: Troponin(5th) Baseline 28 ng/L (0-15)
[2025-01-08 19:49] LABS: Alanine Aminotransferase 59 U/L (0-41); Albumin Level 3.8 g/dL (3.5-5.2); Alkaline Phosphatase 138 U/L (40-130); Blood Urea Nitrogen 18 mg/dL (8-23); Calcium 8.7 mg/dL (8.5-10.5); Carbon Dioxide 18 mmol/L (22-29); Chloride 104 mmol/L (98-107); Creatinine Clr Calc Pharmacy 80.9809; Globulin 2.7 g/dL (1.3-4.6); Glucose 148 mg/dL (65-115); NT Pro B Type Natriuretic Pept 510 pg/mL (0-125); Osmolality Calculated 289 mOsm/kg (285-295); Sodium 137 mmol/L (136-145); Total Protein 6.5 g/dL (6.6-8.7)
[2025-01-08] MEDS: AMIODARONE HCL/D5W 900 MG/500 ML BAG 33.33 MG IV (19:52)
[2025-01-08] MEDS: amiodarone 50 mg/mL SDV 3 mL 150 MG IVP (19:52)
[2025-01-08 19:53] LABS: Anion Gap 19.3 (5-19); Aspartate Amino Transferase 25 U/L (0-40); Potassium 4.3 mmol/L (3.5-5.1)
[2025-01-08] MEDS: HYDROcodone-acetaminophen 10-325 mg Tablet 1 TAB PO (20:26)
--- NOTE | 2025-01-08 20:27 | ECG_ITS ---
[facility]: 2025-01-08 Pat Name: Austyn Light Department: Room: Gender: Male Scale Adjuster: : 1955 Requested By: Noni Belcher Order Number: [id number] Patricia MD: Satinder العراقي M.D. Measurements Intervals [place] Rate: 73 P: 66 NV: 174 QRS: 57 QRSD: 88 T: 72 QT: 372 QTc: 413 Interpretive Statements SINUS RHYTHM POSSIBLE LEFT ATRIAL ENLARGEMENT [-0.1mV P-WAVE IN V1/V2] Compared to ECG 01/08/2025 18:29:26 Atrial flutter no longer present ST (T wave) deviation no longer present Electronically Signed On 01-08-2025 23:29:40 CDT by Satinder العراقي M.D. [email or web address] [id number]
[2025-01-08 20:42] LABS: Glucose Urine UA 2+ (Normal); Nitrate Urine Negative (Negative)
[2025-01-08 20:43] LABS: Magnesium 1.9 mg/dL (1.7-2.3); Thyroid Stimulating Hormone 1.18 uIU/mL (0.27-4.20)
--- NOTE | 2025-01-08 21:01 | PM.HP ---
Providers/Chief Complaint Admitting Physician: Didier Acuna Primary Care Provider: Magno Vann DO Chief Complaint: chest pain History of Present Illness As per the patient and the previous chart review Austyn Light is a 69 year old male with past medical history of COPD, sleep apnea with CPAP dependency at night but not on home oxygen, on inhalers as needed, lumbar radiculopathy, history of PCI and angioplasty to the 1st and 2nd obtuse marginal branches and osteophyte plaque shifting for occluded right coronary artery in 2021. The patient used to follow with Dr. Singh, later on his been more than a year that he did not follow up with any cardiology. He has been taking aspirin and prasugrel regularly. He is an active smoker. He came to the ER with chest pain that started in the afternoon and was crushing in nature that was associated with mild shortness of breath. Patient did not report any nausea, vomiting, abdominal pain, any radiation of the chest pain, any dizziness, any syncope or presyncope like episodes. Patient did not report any recent increase in the leg swellings or any orthopnea or PND. No change in his urinary or bowel habits. Rest of the review of system is unremarkable Patient is actively smoking at the moment. Medications/Allergies Home Medications ?Medication ?Instructions ?Recorded ?Confirmed ?Last Taken ?Type hydrocodone 10 mg-acetaminophen 1 tab PO QID PRN pain 04/10/19 06/18/23 02/13/22 05:30 History 325 mg tablet metformin 500 mg tablet 500 mg PO DAILY 04/10/19 06/18/23 02/11/22 09:00 History aspirin 81 mg tablet,delayed 81 mg PO DAILY 07/17/19 06/18/23 02/12/22 21:00 History release (Adult Aspirin Regimen) omega-3 fatty acids 1,000 mg 1,000 mg PO DAILY 01/09/20 06/18/23 02/12/22 09:00 History capsule (Fish Oil Concentrate) dapagliflozin propanediol 5 mg 5 mg PO QAM 02/10/22 06/18/23 Unknown History tablet (Farxiga) tamsulosin 0.4 mg PO DAILY 02/10/22 06/18/23 02/12/22 09:00 History prasugrel HCl 10 mg tablet 10 mg PO DAILY #90 tabs 12/13/22 06/18/23 Unknown Rx ranolazine 500 mg tablet,extended 500 mg PO DAILY #30 tabs 02/08/23 06/18/23 Unknown Rx release,12 hr metoprolol succinate 100 mg 100 mg PO DAILY #90 tabs 03/05/23 06/18/23 Unknown Rx tablet,extended release 24 hr atorvastatin 40 mg tablet 40 mg PO DAILY #30 tabs 03/13/23 06/18/23 Unknown Rx nitroglycerin 0.4 mg sublingual 0.4 mg sublingual Q5M PRN chest 05/10/23 06/18/23 Unknown Rx tablet pain #25 tabs bumetanide 2 mg tablet 2 mg PO DAILY #30 tabs 07/15/24 Unknown Rx cyclobenzaprine 10 mg tablet 10 mg PO Q8H PRN muscle spasm #20 12/31/24 Unknown Rx tabs hydrocodone 5 mg-acetaminophen 325 1 tab PO Q6H PRN pain #20 tabs 12/31/24 Unknown Rx mg tablet Allergies Allergy/AdvReac Type Severity Reaction Status Date / Time No Known Allergies Allergy Verified 12/31/24 16:58 PFSH Acute PFSH: Medical History (Updated 01/09/25 @ 00:12 by Didier Acuna MD) Chest pain Obesity Ischemic cardiomyopathy Chronic migraine Sleep apnea Bilateral foot-drop Cervical spondylolysis Chronic renal disease Low back pain CAD (coronary artery disease) Myocardial infarct, old Peptic ulcer disease Hypertension Dyslipidemia Chronic pain disorder COPD (chronic obstructive pulmonary disease) Temporal arteritis Spinal stenosis Facet joint disease of cervical region Bilateral chronic knee pain Degenerative disc disease Neck pain Multinodular thyroid Diabetes mellitus Surgical History H/O right knee surgery History of back surgery Hx of excision of lamina of cervical vertebra for decompression of spinal cord History of coronary angioplasty with insertion of stent History of coronary artery stent placement H/O neck surgery Family History Father No problems noted. Mother , 81yrs Cancer Liver failure Social History Smoking and tobacco/nicotine status: current every day tobacco/nicotine user cigarettes Packs smoked per day: 0.5 Years cigarettes smoked: 41 Quit status (tobacco/nicotine): not considering quitting Alcohol intake: never Substance/Drug Use: never Lives independently: Yes Household members: significant other Marital status: Number of children: 2 Highest education level completed: 11th Grade Current occupational status: disabled Do you think of yourself as: Straight/Heterosexual Current gender identity: Male Vitals/I&O/Wt Last Vital Signs Temp 98.2 F 01/08/25 18:27 Pulse 80 01/08/25 20:30 Resp 22 H 01/08/25 19:04 BP 108/60 01/08/25 20:30 Pulse Ox 94 01/08/25 20:30 O2 Del Method Room Air 01/08/25 20:30 O2 Flow Rate 2 01/08/25 19:15 01/08/25 01/08/25 01/08/25 06:59 14:59 22:59 Intake Total 5.50 / 5.50 Balance 5.50 / 5.50 Weight last 48 hrs Weight 77.111 kg Physical Exam Narrative: General: Alert and oriented, lying comfortably without any distress on 1 to 2 L nasal cannula saturating above 92% HEENT: Normocephalic, atraumatic, grossly unremarkable exam Cardio: normal rate rhythm, normal S1-S2 without any murmurs, rubs, or gallops and JVD normal Respiratory: normal vascular breathing on auscultation without any wheezes, stridor, rhonchi GI: Abdomen soft, nontender, nondistended, normoactive bowel sounds present all 4 quadrants, Neuro: intact cranial nerves motor and sensory and cerebellar/coordination function without any focal neurological deficit Behavior: Appropriate and cooperative Extremities: Adequate palpable pulses, mild trace edema Skin: grossly unremarkable exam Data 01/08/25 18:54 01/08/25 18:54 A&P Assessment and plan 1. Unstable angina: - Troponins are high, start heparin infusion - Cardiology consulted already and for catheter tomorrow, keep n.p.o. - Resume home medications aspirin and prasugrel - Continue statins - Continue ranolazine - Nitropaste - TSH normal - Hold beta-blockers since patient heart rate is running in 60s and 50s - Monitor vitals - Troponin trend and serial EKG - Telemetry monitoring 2. History of coronary artery stent placement: - Resume home medications aspirin and prasugrel with statins -Continue ranolazine - Hold beta-blockers since the patient is having heart rate in 50s and 60s., Currently asymptomatic -Monitor any symptoms of dizziness if it bradycardia then to consider atropine as needed 3. Lumbar stenosis with neurogenic claudication: - Continue on hydrocodone 3 times daily -Morphine for breakthrough pain 4. Mixed sleep apnea: - Patient CPAP dependent, CPAP to be placed at night 5. Chronic renal disease: - Monitor renal functions and electrolytes with correction accordingly 6. Obesity: - Adequate counseling about healthy lifestyle provided, and to follow-up as outpatient with PCP 7. Hypertension: - Blood pressure currently stable, continue to monitor -Home medications need reconciliation, patient on metoprolol, tamsulosin and Farxiga at home which are being used for different reason however can also control minor blood pressure. 8. Dyslipidemia: Continue high-dose statins 9. Diabetes mellitus: Insulin sliding scale and monitor blood glucose 10. Nicotine addiction: Patient was provided alternative for nicotine addiction as nicotine patch, however he refused Emphasis on nicotine addiction and abstinence has been provided adequately To refer to PCP at the time of discharge 11. COPD (chronic obstructive pulmonary disease): DuoNebs as needed, currently not in exacerbation PDMP PDMP Reviewed: Not Reviewed Attestations Medical Necessity Statement*: Patient will stay more than 2 midnights for the management of unstable angina and optimization of rest of his comorbidities Time Spent in Patient Care: 16 - 35 minutes (>than 50% of time spent in counselling and/or direct pt care on unit). Other Attestations: Patient condition has been discussed at length with the patient/family, I have independently reviewed the chart labs imaging/diagnostics/EKG. the goals of care and code status with the patient/family/NOK/legal b2b sales representative, and documented accordingly. The patient/family has been informed about the current condition and further plan of care. Agreed with the plan of care and understood without any language barrier. Every effort was made to ensure accuracy of chemistry faculty member. Any obvious errors or omissions should be clarified with the author of the document. Coding Level of Care Code 98935 Diagnoses Unstable angina I20.0 History of coronary artery stent placement Z95.5 Lumbar stenosis with neurogenic claudication M48.062 Mixed sleep apnea G47.39 Chronic renal disease N18.9 Obesity E66.9 Hypertension I10 Dyslipidemia E78.5 Diabetes mellitus E11.9 Nicotine addiction F17.200 COPD (chronic obstructive pulmonary disease) J44.9
[2025-01-08 21:16] LABS: Specific Gravity, Urine 1.034 (1.005-1.030); UA Manual Slide Review YES
[2025-01-08 21:21] LABS: Troponin 5 2HR 44.57 ng/L (0-15)
[2025-01-08] MEDS: heparin 5,000 unit/mL INJ 1 mL 5000 UNIT SUBCUT (21:33)
[2025-01-08 21:36] LABS: Troponin 5 2HR Delta 16.57 ABS# (0-10)
[2025-01-09] VITALS (10 sets, daily range): BP systolic 90–137; BP diastolic 38–78; PULSE 52–72; RESP 16–20; TEMP 36.4–37; O2SAT 91–97; BMI 29.5
--- NOTE | 2025-01-09 00:26 | USCV_ITS ---
Hardaway Austyn Age: 69 Gender: M : 1955 Exam Date: 01/09/2025 14:24 Ordering Phys: Didier Acuna MD Technologist: Lance Mulligan [place] [facility] [place] Ind[place]: unstable angina BP: 121 / 72 HR: 57 Rhythm: Sinus Technical Quality: Adequate MEASUREMENTS (Male / Female) Normal Values 2D ECHO LVOT Diameter 2.0 cm LV Ejection Fraction MOD 4C 76.2 % LV Ejection Fraction MOD 2C 73.1 % LV Ejection Fraction 2C AL 73.8 % LA Diameter 3.7 cm RA Systolic Volume 4C AL 30.8 ml RA Systolic Volume 4C MOD 30.5 ml LA Sys Volume AL 25.2 cm cubed LA Sys Volume Index AL 12.1 cm cubed/m squared Aorta at Sinotubular Diameter 2.3 cm IVC Diameter 1.5 cm M-MODE LA Ao Ratio MM 1.3 AV Cusp Separation MM 1.9 cm DOPPLER AV Peak Velocity 144.3 cm/s LVOT Peak Velocity 117.0 cm/s AV Area Cont Eq vti 2.5 cm squared AV Area Cont Eq pk 2.6 cm squared MV Peak Velocity 121.0 cm/s MV Area PHT 3.6 cm squared Mitral E to A Ratio 0.8 TR Peak Velocity 216.0 cm/s TR Peak Gradient 18.7 mmHg TR Mean Velocity 166.0 cm/s TR Mean Gradient 12.3 mmHg TR Velocity Time Integral 58.3 cm PV Peak Velocity 101.7 cm/s RV Ejection Time 0.3 s FINDINGS Left Ventricle Normal left ventricular size and systolic function, EF 73%.. Mild left ventricular hypertrophy. No regional wall motion abnormalities. Grade I/IV diastolic dysfunction (abnormal relaxation filling pattern), normal to mildly elevated filling pressures. Right Ventricle Normal right ventricular size and systolic function. Right Atrium Normal right atrial size. Left Atrium Normal left atrial size. IA Septum Normal appearance of the interatrial septum. Mitral Valve Thickened mitral valve. Aortic Valve Thickened aortic valve. Tricuspid Valve No gross abnormalities noted Pulmonic Valve No gross abnormalities noted Pericardium No pericardial effusion. Aorta Normal aortic annulus size. IVC Normal inferior vena cava. CONCLUSIONS Normal left ventricular size and systolic function, EF 73%.. Mild left ventricular hypertrophy. No regional wall motion abnormalities. Grade I/IV diastolic dysfunction (abnormal relaxation filling pattern), normal to mildly elevated filling pressures. Thickened mitral valve. Thickened aortic valve. There are no intracardiac masses. There is no pericardial effusion. Compared to the study from 07/27/2016, there may not be a significant change Dr Satinder العراقي MD FAC (Electronically Signed) Final Date: 09 January 2025 18:31 S
[2025-01-09] MEDS: heparin 5,000 unit/mL INJ 1 mL IVP (00:42)
[2025-01-09] MEDS: heparin drip 25,000 UNIT/500 ML PREMIX 25 UNIT IV (00:44)
--- NOTE | 2025-01-09 00:44 | ECG_ITS ---
[facility] Test Date: 2025-01-09 Pat Name: Austyn Light Department: Room: EDIP Gender: Male Palm And Back Forger: : 1955 Requested By: Noni Belcher Order Number: [id number] Patricia MD: Satinder العراقي M.D. Measurements Intervals [place] Rate: 54 P: 69 [place]: 184 QRS: 62 QRSD: 94 T: 73 QT: 433 QTc: 414 Interpretive Statements SINUS BRADYCARDIA Compared to ECG 01/08/2025 20:27:09 Sinus rhythm no longer present Electronically Signed On 01-11-2025 21:31:36 CDT by Satinder العراقي M.D. [email or web address] [id number]
[2025-01-09 00:48] LABS: Hematocrit 45.9 % (37-53); Hemoglobin 15.20 g/dL (11.27-16.99); Mean Corpuscular HGB Conc 33.1 g/dL (30-55); Mean Corpuscular Hemoglobin 31.9 pg (27-33); Mean Corpuscular Volume 96.2 fl (82-101); Nucleated Red Blood Cells % 0 %; Platelet Count 249 10^3/cmm (157-399); Red Blood Count 4.77 10^6/uL (3.85-5.65); White Blood Count 16.77 10^3/uL (3.29-11.43)
[2025-01-09 01:08] LABS: Troponin 5 6HR 68.94 ng/L (0-15)
[2025-01-09 01:10] LABS: Alanine Aminotransferase 57 U/L (0-41); Albumin Level 3.6 g/dL (3.5-5.2); Alkaline Phosphatase 133 U/L (40-130); Anion Gap 15.0 (5-19); Aspartate Amino Transferase 25 U/L (0-40); Blood Urea Nitrogen 16 mg/dL (8-23); Calcium 8.5 mg/dL (8.5-10.5); Carbon Dioxide 24 mmol/L (22-29); Chloride 103 mmol/L (98-107); Creatinine Clr Calc Pharmacy 77.4011; Globulin 2.3 g/dL (1.3-4.6); Glucose 163 mg/dL (65-115); Osmolality Calculated 291 mOsm/kg (285-295); Potassium 4.0 mmol/L (3.5-5.1); Sodium 138 mmol/L (136-145); Total Protein 5.9 g/dL (6.6-8.7)
[2025-01-09 01:14] LABS: Troponin 5 6HR Delta 40.94 ng/L (0-12)
[2025-01-09 05:13] LABS: Troponin(5th) Baseline 56 ng/L (0-15)
[2025-01-09] MEDS: ranolazine (12HR) 500 mg Tablet PO (05:44)
[2025-01-09 06:43] LABS: Troponin 5 2HR 54.80 ng/L (0-15)
[2025-01-09 06:44] LABS: Troponin 5 2HR Delta -1.20 ABS# (0-10)
--- NOTE | 2025-01-09 06:48 | ECG_ITS ---
[facility] Test Date: 2025-01-09 Pat Name: Austyn Light Department: Room: EDIP Gender: Male Salesforce Consultant: John ORTIZB: 1955 Requested By: Didier Acuna Order Number: [id number] Patricia MD: Satinder العراقي M.D. Measurements Intervals [place] Rate: 54 P: 66 [place]: 182 QRS: 61 QRSD: 86 T: 75 QT: 435 QTc: 413 Interpretive Statements SINUS BRADYCARDIA Compared to ECG 01/09/2025 00:44:44 No significant changes Electronically Signed On 01-11-2025 21:31:24 CDT by Satinder العراقي M.D. [email or web address] [id number]
--- NOTE | 2025-01-09 06:51 | PC.NURSE ---
THIS NURSE ASSUMED CARE AT 0645.
--- NOTE | 2025-01-09 07:54 | US_ITS ---
WS: [id number] RIGHT UPPER QUADRANT ULTRASOUND HISTORY: Pain. COMPARISON: None available. Liver: 16.4 cm in length. Normal size liver with coarse echotexture. No mass. Portal Vein: Normal hepatopetal flow with monophasic waveform. Gallbladder: Normally distended gallbladder with no stones or wall thickening. CBD: 0.4 cm Pancreas: Not visualized. Right kidney: 11.3 cm in length. Normal size and echogenicity. No hydronephrosis or mass. Aorta and IVC: Unremarkable abdominal aorta and IVC. No ascites. US/US abdomen limited [id number] IMPRESSION: 1. Negative gallbladder. 2. Pancreas not visualized. 3. No intrahepatic duct dilatation.
[2025-01-09 08:31] LABS: Alcohol Level < 10 mg/dL (0-10)
[2025-01-09 08:33] LABS: Partial Thromboplastin Time > 250.0 SECONDS (23.9-36.7)
[2025-01-09 08:34] LABS: HIV 1 & 2 Antigen Non-Reactive (Non-Reactiv)
--- NOTE | 2025-01-09 08:34 | PC.NURSE ---
PTT GREATER THAN 250. ATTEMPTED TO CALL DR GREEN WITHOUT RESPONSE. SENT VOALTE MESSAGE. AWAITING RESPONSE.
[2025-01-09 08:35] LABS: Hepatitis A Antibody IgM Non-Reactive (Nonreactive); Hepatitis B Surface Antigen Non-Reactive (Nonreactive)
--- NOTE | 2025-01-09 08:43 | PC.NURSE ---
DR CAMPBELL PRESENTED TO ER. VRBO TO STOP HEPARIN, REDRAW PTT IN 2 HOURS, AND THEN FOLLOW PROTOCOL. DR GREEN INFORMED.
[2025-01-09 08:59] LABS: PCP Screen Urine Negative (Negative)
--- NOTE | 2025-01-09 09:09 | PM.CONSULT ---
Providers/Reason For Consult Consulting Physician/Specialty*: STEFAN العراقي MD/cardiology Reason for Consult*: Patient with history of coronary disease and previous PCI, presenting with a prolonged episode of chest pain Requesting Physician: Dr. Verdugo Attending Physician: Errol Verdugo MD Primary Care Provider: Magno Vann DO History of Present Illness History of Present Illness Austyn Light is a 69 year old male, he is being admitted to the hospital through the emergency room, where he presented with complaints of chest pain. This patient apparently has been in his baseline state of health up until 5:00 yesterday evening when he started having chest pain while being in his recliner. The pain was upper substernal and was radiating across the chest, associated with some shortness of breath slight nausea and sweating. He took a total of 2 sublingual nitroglycerin. Symptoms there was no relief, the ambulance was called in. He did not have any other associated symptoms or radiation of pain. Intensity of the pain was around 8/10. Chest pain maybe lasted for an hour or so. By the time he came to the emergency room, most of the pains were gone. Patient has a history of atherosclerotic heart disease and previous myocardial infarction. This patient is known to have atherosclerotic heart disease and had a myocardial infarction many years ago. He had a angiogram followed by multivessel PCI at that time. In 2021, he had a repeat angiogram. At that time he was found to have chronic total occlusion of the right coronary artery. The left main did not have any significant lesions. LAD was found to have mild diffuse plaques. The left circumflex artery was found to be giving to fairly large obtuse marginal branches. The stents in these vessels were found to be patent. There was a high-grade lesion in the ostium of the second obtuse marginal artery which was found to be close to the ostium of the first obtuse marginal. He underwent PCI of the second OM, ostial lesion. Because of the plaque shift causing occlusion of the first OM branch, the first OM also was intervened with the balloon angioplasty. Patient had a residual 40% lesions at the ostium. Apparently he has been doing okay since then with no significant symptoms. He has a history of cardiomyopathy and congestive heart failure, hypertension, dyslipidemia, type 2 diabetes, chronic kidney disease, COPD, obstructive sleep apnea, chronic back pain, difficulty in ambulation, wheelchair dependency. He smokes half pack a day for the last more than 50 years. No alcohol abuse or any substance abuse. Review of Systems Narrative: CONSTITUTIONAL: No fever or chills. EYES: No blurring of vision or other visual disturbances lately. ENT: No hoarseness of voice, auditory disturbances or sore throat. CARDIOVASCULAR: As mentioned above. RESPIRATORY: COPD/sleep apnea GASTROINTESTINAL: No hematemesis or melena. GENITOURINARY: Chronic kidney disease INTEGUMENTARY: No skin rashes or history of skin cancer. NEURO: No transient ischemic attacks or amaurosis. PSYCHIATRIC: No history of psychosis or major depression. HEMATOLOGIC: No bleeding disorders or significant anemia. ENDOCRINE: Type 2 diabetes MUSCULOSKELETAL: Chronic back pain/back surgery ALLERGY/IMMUNOLOGY: As mentioned above. Medications/Allergies Home Medications ?Medication ?Instructions ?Recorded ?Confirmed ?Last Taken ?Type metformin 500 mg tablet 500 mg PO DAILY 04/10/19 01/09/25 01/07/25 19:00 History aspirin 81 mg tablet,delayed 81 mg PO DAILY 07/17/19 01/09/25 01/07/25 19:00 History release (Adult Aspirin Regimen) dapagliflozin propanediol 5 mg 5 mg PO QAM 02/10/22 01/09/25 01/08/25 History tablet (Farxiga) prasugrel HCl 10 mg tablet 10 mg PO DAILY #90 tabs 12/13/22 01/09/25 Unknown Rx metoprolol succinate 100 mg 100 mg PO DAILY #90 tabs 03/05/23 01/09/25 01/07/25 18:00 Rx tablet,extended release 24 hr nitroglycerin 0.4 mg sublingual 0.4 mg sublingual Q5M PRN chest 05/10/23 01/09/25 01/08/25 Rx tablet pain #25 tabs cyclobenzaprine 10 mg tablet 10 mg PO Q8H PRN muscle spasm #20 12/31/24 01/09/25 01/07/25 Rx tabs hydrocodone 5 mg-acetaminophen 325 1 tab PO Q6H PRN pain #20 tabs 12/31/24 01/09/25 01/07/25 Rx mg tablet atorvastatin 40 mg tablet 40 mg PO DAILY 01/09/25 01/09/25 01/07/25 19:00 History bumetanide 1 mg tablet 1 mg PO BID 01/09/25 01/09/25 01/07/25 History omega 6-hok-bze-fish oil 1,000 mg 1 cap PO DAILY 01/09/25 01/09/25 01/07/25 History (120 mg-180 mg) capsule (Fish Oil) ranolazine 500 mg tablet,extended 500 mg PO DAILY 01/09/25 01/09/25 01/07/25 History release,12 hr tamsulosin 0.4 mg capsule See Rx Instructions .Route .COMPLEX 01/09/25 01/09/25 01/07/25 History Allergies Allergy/AdvReac Type Severity Reaction Status Date / Time No Known Allergies Allergy Verified 12/31/24 16:58 Current Medications Generic Name Dose Route Start Last Admin Trade Name Freq PRN Reason Stop Dose Admin Acetaminophen 650 mg 01/08/25 21:02 01/09/25 05:47 Acetaminophen 325 Mg Tablet PO 650 mg Q6H PRN Administration Mild/Mod Pain Or Temp >/= 101 Aspirin 81 mg 01/09/25 05:00 01/09/25 05:44 Aspirin 81 Mg Ec Tablet PO 81 mg DAILY JASON Administration Atorvastatin Calcium 40 mg 01/09/25 05:00 01/09/25 05:44 Atorvastatin 40 Mg Tablet PO 40 mg DAILY JASON Administration AMIODARONE HCL/D5W 900 mg in 500 mls @ 0 mls/hr 01/08/25 19:32 01/09/25 04:17 Amiodarone 900 Mg/500 Ml-D5w IV 0.5 mg/min .Q0M JASON 16.67 mls/hr Protocol Titration Per Protocol Heparin Sodium/Sodium Chloride 25,000 unit in 500 mls @ 0 mls/hr 01/08/25 23:45 01/09/25 08:43 Heparin Drip IV 0 unit/kg/hr CONT JASON 0 mls/hr Protocol Titration Per Protocol Insulin Human Lispro 0 unit 01/09/25 08:00 01/09/25 08:10 Insulin Lispro 100 Unit/1 Ml SUBCUT Not Given [facility] Protocol Prasugrel 10 mg 01/09/25 05:00 01/09/25 05:44 Prasugrel 10 Mg Tablet PO 10 mg DAILY JASON Administration Ranolazine 500 mg 01/09/25 05:00 01/09/25 05:44 Ranolazine (12hr) 500 Mg Tablet PO 500 mg DAILY JASON Administration Tamsulosin HCl 0.4 mg 01/09/25 05:00 01/09/25 05:44 Tamsulosin 0.4 Mg Capsule PO 0.4 mg DAILY JASON Administration PFSH Acute PFSH: Medical History Chest pain Obesity Ischemic cardiomyopathy Chronic migraine Sleep apnea, unspecified type Bilateral foot-drop Cervical spondylolysis Stage 2 chronic kidney disease Low back pain CAD (coronary artery disease) Myocardial infarct, old Peptic ulcer disease Hypertension Dyslipidemia Chronic pain disorder Chronic obstructive pulmonary disease, unspecified COPD type Temporal arteritis Spinal stenosis Facet joint disease of cervical region Bilateral chronic knee pain Degenerative disc disease Neck pain Multinodular thyroid Type 2 diabetes mellitus without complication in remission Surgical History H/O right knee surgery History of back surgery Hx of excision of lamina of cervical vertebra for decompression of spinal cord History of coronary angioplasty with insertion of stent History of coronary artery stent placement H/O neck surgery Family History Father No problems noted. Mother , 81yrs Cancer Liver failure Social History Smoking and tobacco/nicotine status: current every day tobacco/nicotine user cigarettes Packs smoked per day: 0.5 Years cigarettes smoked: 41 Quit status (tobacco/nicotine): not considering quitting Alcohol intake: never Substance/Drug Use: never Lives independently: Yes Household members: significant other Marital status: Number of children: 2 Highest education level completed: 11th Grade Current occupational status: disabled Do you think of yourself as: Straight/Heterosexual Current gender identity: Male Vitals/I&O/Wt Last Vital Signs Temp 98.2 F 01/08/25 18:27 Pulse 52 L 01/09/25 08:17 Resp 16 01/09/25 08:17 BP 99/38 01/09/25 08:06 Pulse Ox 94 01/09/25 08:17 O2 Del Method Room Air 01/09/25 08:17 O2 Flow Rate 1.5 01/09/25 00:51 10/06/0301/09/25 01/09/25 22:59 06:59 14:59 Intake Total 505.50 / 505.50 280.528 / 786.028 199.583 / 199.583 Balance 505.50 / 505.50 280.528 / 786.028 199.583 / 199.583 Weight last 48 hrs Weight 194 lb 9 oz Weight 170 lb Physical Exam Narrative: GENERAL: The patient is alert and oriented times three. Not in any acute distress. HEENT: No significant pallor, icterus or lymphadenopathy.Oral cavity: There are no mucous membrane lesions. NECK: Trachea appears to be central. No masses noted. No JVD or thyromegaly appreciated. RESPIRATORY: Chest is symmetrical. No intercostals muscle retraction or any accessory muscle activation. There is no chest wall tenderness. Breath sounds are heard bilaterally. No rales or rhonchi heard. No evidence of any consolidation. BREASTS: Deferred. HEART: The heart sounds are normal. No S3 or S4. No significant murmurs. No pericardial rub ABDOMEN: No vessel pulsations or distention. No tenderness. No organomegaly appreciated. Bowel sounds are normally heard. : Deferred. RECTAL: Deferred. LYMPHATIC: No lymphadenopathy noted in the neck. EXTREMITIES: Trace edema with no cyanosis. Peripheral pulses are weak bilaterally, dorsalis pedis and posterior tibial arteries. MUSCULOSKELETAL: No acute joint deformities or swelling SKIN: There are no significant rashes or ecchymosis NEUROPSYCHIATRIC: The patient is alert and oriented x3. Appears to be in a good mood. No tremors or rigidity noted. Data 01/09/25 00:37 01/09/25 00:37 Other Labs: Laboratory Last Values WBC 16.77 10^3/uL (3.29-11.43) H 01/09/25 00:37 RBC 4.77 10^6/uL (3.85-5.65) 01/09/25 00:37 Hgb 15.20 g/dL (11.27-16.99) 01/09/25 00:37 Hct 45.9 % (37-53) 01/09/25 00:37 MCV 96.2 fl (82-101) 01/09/25 00:37 MCH 31.9 pg (27-33) 01/09/25 00:37 MCHC 33.1 g/dL (30-55) 01/09/25 00:37 RDW 13.6 % (12.1-15.1) 01/09/25 00:37 Plt Count 249 10^3/cmm (157-399) 01/09/25 00:37 MPV 9.2 fL (7.4-10.4) 01/09/25 00:37 Neut % (Auto) 67.3 % 01/09/25 00:37 Lymph % (Auto) 25.6 % 01/09/25 00:37 Fisher % (Auto) 5.1 % 01/09/25 00:37 Eos % (Auto) 1.1 % 01/09/25 00:37 Baso % (Auto) 0.2 % 01/09/25 00:37 Neut # (Auto) 11.28 10^3/uL (1.8-7.7) H 01/09/25 00:37 Lymph # (Auto) 4.3 10^3/uL (0.8-4.8) 01/09/25 00:37 Fisher # (Auto) 0.9 10^3/uL (0.2-0.9) 01/09/25 00:37 Eos # (Auto) 0.2 10^3/uL (0.0-0.8) 01/09/25 00:37 Baso # (Auto) 0.0 10^3/uL (0.0-0.1) 01/09/25 00:37 Nucleated RBC % (auto) 0 % 01/09/25 00:37 Nucleated RBCs # 0.0 /100WBC 01/09/25 00:37 APTT > 250.0 SECONDS (23.9-36.7) H* 01/09/25 07:40 Sodium 138 mmol/L (136-145) 01/09/25 00:37 Potassium 4.0 mmol/L (3.5-5.1) 01/09/25 00:37 Chloride 103 mmol/L (98-107) 01/09/25 00:37 Carbon Dioxide 24 mmol/L (22-29) 01/09/25 00:37 Anion Gap 15.0 (5-19) 01/09/25 00:37 BUN 16 mg/dL (8-23) 01/09/25 00:37 Creatinine 1.0 mg/dL (0.7-1.2) 01/09/25 00:37 GFR Calculation 74.5 mL/min (90-130) L 01/09/25 00:37 Glucose 163 mg/dL (65-115) H 01/09/25 00:37 POC Glucose 105 mg/dL (70-110) 01/09/25 08:03 Calculated Osmolality 291 mOsm/kg (285-295) 01/09/25 00:37 Calcium 8.5 mg/dL (8.5-10.5) 01/09/25 00:37 Magnesium 1.9 mg/dL (1.7-2.3) 01/08/25 18:54 Total Bilirubin 0.7 mg/dL (0.15-1.2) 01/09/25 00:37 AST 25 U/L (0-40) 01/09/25 00:37 ALT 57 U/L (0-41) H 01/09/25 00:37 Alkaline Phosphatase 133 U/L (40-130) H 01/09/25 00:37 Troponin T Baseline 56 ng/L (0-15) H 01/09/25 04:37 Troponin T 120 Minute 54.80 ng/L (0-15) H 01/09/25 06:07 Delta Troponin T -1.20 ABS# (0-10) L 01/09/25 06:07 Troponin T Hi Sens 6Hr 68.94 ng/L (0-15) H 01/09/25 00:37 Troponin T Hi Sens 6Hr Delta 40.94 ng/L (0-12) H* 01/09/25 00:37 NT-Pro-B Natriuret Pep 510 pg/mL (0-125) H 01/08/25 18:54 Total Protein 5.9 g/dL (6.6-8.7) L 01/09/25 00:37 Albumin 3.6 g/dL (3.5-5.2) 01/09/25 00:37 Globulin 2.3 g/dL (1.3-4.6) 01/09/25 00:37 TSH 1.18 uIU/mL (0.27-4.20) 01/08/25 18:54 Urine Color Yellow (Yellow) 01/08/25 20:00 Urine Appearance Clear (CLEAR) 01/08/25 20:00 Urine pH 5.0 (5-7) 01/08/25 20:00 Ur Specific [place] 1.034 (1.005-1.030) H 01/08/25 20:00 Urine Protein Negative (Negative) 01/08/25 20:00 Urine Glucose (UA) 2+ (Normal) H 01/08/25 20:00 Urine Ketones Trace (Negative) 01/08/25 20:00 Urine Blood Negative (Negative) 01/08/25 20:00 Urine Nitrate Negative (Negative) 01/08/25 20:00 Urine Bilirubin Negative (Negative) 01/08/25 20:00 Urine Urobilinogen 1.0 mg/dL (Negative) 01/08/25 20:00 Ur Leukocyte Esterase Negative (Negative) 01/08/25 20:00 Urine RBC 0-2 /hpf (0-2) 01/08/25 20:00 Urine WBC None /hpf (0-5) 01/08/25 20:00 Ur Squamous Epith Cells None /hpf (0-5) 01/08/25 20:00 Amorphous Sediment Not Reportable 01/08/25 20:00 Urine Bacteria Trace /hpf (NONE) 01/08/25 20:00 Urine Opiates Screen Positive ng/mL (Negative) H 01/08/25 20:20 Ur Barbiturates Screen Negative ng/mL (Negative) 01/08/25 20:20 Ur Phencyclidine Scrn Negative ng/mL (Negative) 01/08/25 20:20 Ur Amphetamines Screen Negative ng/mL (Negative) 01/08/25 20:20 U Benzodiazepines Scrn Negative ng/mL (Negative) 01/08/25 20:20 Urine Cocaine Screen Negative ng/mL (Negative) 01/08/25 20:20 U Marijuana (THC) Screen Positive ng/mL (Negative) H 01/08/25 20:20 Ethyl Alcohol < 10 mg/dL (0-10) 01/09/25 07:40 Hepatitis A IgM Ab Non-reactive (Nonreactive) 01/09/25 00:37 Hep Bs Antigen Non-reactive (Nonreactive) 01/09/25 00:37 Hep B Core IgM Ab Non-reactive (Nonreactive) 01/09/25 00:37 Hepatitis C Antibody Non-reactive (Nonreactive) 01/09/25 00:37 HIV 1&2 Ab & HIV 1 Ag Non-reactive (Non-Reactiv) 01/09/25 00:37 HIV 1&2 Antibody Non-reactive (Non-Reactiv) 01/09/25 00:37 Other data: The EKG showed normal sinus rhythm with a normal ST Ts. A&P Assessment and plan 1. Atherosclerosis of [place] coronary artery of [place] heart with unstable angina pectoris: The patient's symptoms may suggest an unstable angina. Hemodynamically seems to be stable. The EKG is unremarkable. The baseline troponin T is slightly elevated. There is significant rise in the 6-hour delta of 41 Perfusion is a surgery for a non-ST elevation myocardial infarction 2. Ischemic cardiomyopathy: The patient carries a diagnosis of ischemic cardiomyopathy. However he has not had any recent LV function evaluation. His LV ejection fraction based on the nuclear scan in 2021 was within normal limits?. 3. Dyslipidemia: Patient may be kept on the current lipid-lowering agent. 4. 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 This needs to be closely monitored. 5. Stage 2 chronic kidney disease: Currently the patient seems to have stage II kidney disease. He needs to be properly hydrated. 6. Chronic obstructive pulmonary disease, unspecified COPD type: Patient continues to smoke. Strongly advised to quit. He has a history of hemoptysis. No recent hemoptysis 7. Sleep apnea, unspecified type: May continue on the current management. Plan: Echocardiogram would be helpful to evaluate LV function and rule out any other pathology. Patient may be fit with IV heparin, p.o. Plavix, aspirin, beta-blockers and other current medications. He may require a repeat angiogram to reevaluate the coronary status and decide on further management. He need to be closely monitored on telemetry. Based on the clinical progress, further recommendations will be made Thank you for the opportunity to evaluate this patient and make these recommendations PDMP PDMP Reviewed: Not Reviewed Consult Attestations Medical Necessity Statement: Patient requires continued hospital stay for close monitoring and further management Coding Level of Care Code 24148 Diagnoses Atherosclerosis of [place] coronary artery of [place] heart with unstable angina pectoris I25.110 [place] vs. transplanted heart: [place] heart Ischemic cardiomyopathy I25.5 Dyslipidemia E78.5 Type 2 diabetes mellitus without complication in remission E11.A Diabetes mellitus type: type 2, without complications, in remission Stage 2 chronic kidney disease N18.2 Chronic kidney disease stage: stage 2 (GFR 60-89) Chronic obstructive pulmonary disease, unspecified COPD type J44.9 COPD type: unspecified COPD Sleep apnea, unspecified type G47.30 Sleep apnea type: unspecified type
[2025-01-09] MEDS: HYDROcodone-acetaminophen 5-325 mg Tablet 1 TAB PO ×3 (09:13→20:49)
--- NOTE | 2025-01-09 09:13 | PC.NURSE ---
BRITTANY FROM DR GREEN, STOP PATIENT IV AMIODARONE, START ON 200 MG PO BID AT 1200 TODAY. ADMINISTER HYDROCODONE 5-325 FOR BACK PAIN.
[2025-01-09 10:32] LABS: Troponin 5 6HR 47.05 ng/L (0-15)
[2025-01-09 10:33] LABS: Troponin 5 6HR Delta -8.95 ng/L (0-12)
[2025-01-09 10:35] LABS: Partial Thromboplastin Time 150.1 SECONDS (23.9-36.7)
--- NOTE | 2025-01-09 15:16 | P.PN_ITS ---
Subjective 2 Subjective: Patient was seen this morning, currently lying on his side, tells me that he has sciatica is flaring up, he has back pain, denies any fevers, chills, no cough, no dysuria, hematuria, currently he is chest pain-free Vitals/I&O/Wt Last Vital Signs Temp 97.6 F 01/09/25 13:16 Pulse 58 L 01/09/25 13:16 Resp 17 01/09/25 13:16 BP 121/72 01/09/25 13:16 Pulse Ox 92 01/09/25 13:16 O2 Del Method Room Air 01/09/25 13:57 O2 Flow Rate 1.5 01/09/25 00:51 01/09/25 01/09/25 01/09/25 06:59 14:59 22:59 Intake Total 280.528 / 786.028 281.822 / 281.822 Balance 280.528 / 786.028 281.822 / 281.822 Weight last 48 hrs Weight 88.252 kg Weight 77.111 kg Physical Exam 2 Const: COMMON NORMALS: no acute distress and patient oriented x3 Resp: COMMON NORMALS: normal respiratory effort, No retractions, No use of accessory muscles and clear to auscultation bilaterally AUSCULTATION: clear to auscultation bilaterally Cardio: COMMON NORMALS: regular rate, regular rhythm, S1 normal heart sound present and S2 normal heart sound present RATE: regular rate RHYTHM: r egular rhythm HEART SOUNDS: S1 normal heart sound present and S2 normal heart sound present GI: COMMON NORMALS: Normal to inspection, nondistended, normoactive bowel sounds present and non-tender Extremity: COMMON NORMALS: no pedal edema Neuro: COMMON NORMALS: patient oriented x3 Psych: COMMON NORMALS: mental status grossly normal Data 01/09/25 00:37 01/09/25 00:37 A&P Assessment and plan 1. Unstable angina: - Currently chest pain-free - Aspirin, statin, -Continue Effient -Continue ranolazine -Heparin drip -Cardiac echo -Cardiology consulted - Will await recommendations - Troponin trend and serial EKG - Telemetry monitoring 2. History of coronary artery stent placement: 3. Lumbar stenosis with neurogenic claudication: - Continue on 5-325every 4 hours as needed 4. Mixed sleep apnea: - Patient CPAP dependent, CPAP to be placed at night 5. Chronic renal disease: - Monitor renal functions and electrolytes with correction accordingly 6. Obesity: - Adequate counseling about healthy lifestyle provided, and to follow-up as outpatient with PCP 7. Hypertension: - Monitor blood pressure 8. Dyslipidemia: Continue high-dose statins 9. Diabetes mellitus: Insulin sliding scale and monitor blood glucose 10. Nicotine addiction: 11. COPD (chronic obstructive pulmonary disease): DuoNebs as needed, currently not in exacerbation 12. Atrial fibrillation/flutter: Plan: Sciatica, continue hydrocodone Atrial flutter, on amiodarone drip - Transition off amiodarone drip to p.o. amiodarone - Heparin drip - Cardiac echo Transaminitis, monitor LFTs, ultrasound liver PDMP PDMP Reviewed: Not Reviewed Attestations 2 Medical Necessity Statement*: Patient requires hospitalization for atrial flutter, chest pain, unstable angina Diagnoses Unstable angina I20.0 History of coronary artery stent placement Z95.5 Lumbar stenosis with neurogenic claudication M48.062 Mixed sleep apnea G47.39 Chronic renal disease N18.9 Obesity E66.9 Hypertension I10 Dyslipidemia E78.5 Diabetes mellitus E11.9 Nicotine addiction F17.200 COPD (chronic obstructive pulmonary disease) J44.9 Atrial fibrillation/flutter I48.91; I48.92
[2025-01-09 15:19] LABS: Partial Thromboplastin Time 31.3 SECONDS (23.9-36.7)
[2025-01-09] MEDS: heparin drip 25,000 UNIT/500 ML PREMIX 18 UNIT IV (15:54)
[2025-01-09] MEDS: morphine 4 mg/mL SDV 1 mL 2 MG IVP (15:59)
[2025-01-09 21:05] LABS: Partial Thromboplastin Time 63.4 SECONDS (23.9-36.7)
[2025-01-10] VITALS (37 sets, daily range): BP systolic 107–149; BP diastolic 46–102; PULSE 50–92; RESP 9–23; TEMP 35.9–37.1; O2SAT 85–96
[2025-01-10] MEDS: HYDROcodone-acetaminophen 5-325 mg Tablet 1 TAB PO ×3 (01:02→09:12)
[2025-01-10 02:52] LABS: Hematocrit 43.4 % (37-53); Hemoglobin 14.60 g/dL (11.27-16.99); Mean Corpuscular HGB Conc 33.6 g/dL (30-55); Mean Corpuscular Hemoglobin 32.2 pg (27-33); Mean Corpuscular Volume 95.6 fl (82-101); Nucleated Red Blood Cells % 0 %; Platelet Count 232 10^3/cmm (157-399); Red Blood Count 4.54 10^6/uL (3.85-5.65); White Blood Count 14.49 10^3/uL (3.29-11.43)
[2025-01-10 03:23] LABS: Alanine Aminotransferase 39 U/L (0-41); Albumin Level 3.5 g/dL (3.5-5.2); Alkaline Phosphatase 127 U/L (40-130); Anion Gap 13.8 (5-19); Aspartate Amino Transferase 16 U/L (0-40); Blood Urea Nitrogen 14 mg/dL (8-23); Calcium 8.4 mg/dL (8.5-10.5); Carbon Dioxide 21 mmol/L (22-29); Chloride 102 mmol/L (98-107); Creatinine Clr Calc Pharmacy 77.2977; Globulin 2.9 g/dL (1.3-4.6); Glucose 155 mg/dL (65-115); Osmolality Calculated 280 mOsm/kg (285-295); Potassium 3.8 mmol/L (3.5-5.1); Sodium 133 mmol/L (136-145); Total Protein 6.4 g/dL (6.6-8.7)
[2025-01-10 04:00] LABS: Partial Thromboplastin Time 86.9 SECONDS (23.9-36.7)
[2025-01-10] MEDS: ranolazine (12HR) 500 mg Tablet PO (04:52)
--- NOTE | 2025-01-10 09:09 | PM.PN ---
Subjective Subjective: The patient is feeling okay. No chest pain or shortness of breath at this time. Medications: Medication Review Details: Current Medications Acetaminophen (Acetaminophen 325 Mg Tablet) 650 mg PO Q6H PRN PRN Reason: Mild/Mod Pain Or Temp >/= 101 Last Admin: 01/09/25 05:47 Dose: 650 mg Hydrocodone Bitart/Acetaminophen (Hydrocodone-Acetaminophen 5-325 Mg Tablet) 1 tab PO Q4H PRN PRN Reason: MODERATE TO SEVERE PAIN Last Admin: 01/10/25 05:03 Dose: 1 tab Al Hydrox/Mg Hydrox/Simethicone (Yncz-Yef-Ekewwghmg-Livan 30 Ml Udc) 15 ml PO Q6H PRN PRN Reason: INDIGESTION Albuterol/Ipratropium (Ipratropium-Albuterol 3 Ml Neb) 3 ml INHALATION Q6H PRN PRN Reason: SHORTNESS OF BREATH Amiodarone HCl (Amiodarone 200 Mg Tablet) 200 mg PO BID [facility] Last Admin: 01/10/25 04:55 Dose: 200 mg Aspirin (Aspirin 81 Mg Ec Tablet) 81 mg PO DAILY [facility] Last Admin: 01/10/25 04:55 Dose: Not Given Atorvastatin Calcium (Atorvastatin 40 Mg Tablet) 40 mg PO DAILY [facility] Last Admin: 01/10/25 04:53 Dose: 40 mg Bisacodyl (Bisacodyl 5 Mg Tablet) 10 mg PO DAILY PRN; Protocol PRN Reason: Constipation (see protocol) Calcium Carbonate (Calcium Carbonate 500 Mg Chew Tablet) 1,000 mg PO Q4H PRN PRN Reason: DYSPEPSI Glucagon (Glucagon 1 Mg/Ml Kit 1 Ml) 1 mg IM ONCE PRN; Protocol PRN Reason: Adult Acute Hypoglycemia Nursing Prot. Heparin Sodium (Porcine) (Heparin 5,000 Unit/Ml Inj 1 Ml) 0 unit IVP PRN PRN; Protocol PRN Reason: Heparin Weight Based Protocol -Subsequent Bolus Dextrose (D5w) 500 mls @ 0 mls/hr IV ONCE PRN; Protocol PRN Reason: Adult Acute Hypoglycemia Prot Dextrose (D10w) 125 mls @ 750 mls/hr IV PRN PRN; Protocol PRN Reason: Adult Acute Hypoglycemia Nursing Protocol Dextrose (D10w) 250 mls @ 1,000 mls/hr IV PRN PRN; Protocol PRN Reason: Adult Acute Hypoglycemia Nursing Protocol Heparin Sodium/Sodium Chloride (Heparin Drip) 25,000 unit in 500 mls @ 0 mls/hr IV CONT [facility]; Protocol Last Titration: 01/10/25 04:03 Dose: 9.73 unit/kg/hr, 15 mls/hr Sodium Chloride (Sodium Chloride 0.9%) 1,000 mls @ 50 mls/hr IV .Q20H ONE Stop: 01/11/25 00:59 Last Admin: 01/10/25 05:04 Dose: 50 mls/hr Insulin Human Lispro (Insulin Lispro 100 Unit/1 Ml) 0 unit SUBCUT TIDWM [facility]; Protocol Last Admin: 01/09/25 18:00 Dose: Not Given Morphine Sulfate (Morphine 4 Mg/Ml Sdv 1 Ml) 2 mg IVP Q4H PRN PRN Reason: SEVERE PAIN Last Admin: 01/09/25 15:59 Dose: 2 mg Nitroglycerin (Nitroglycerin 0.4 Mg Sublingual Tablet) 0.4 mg SUBLINGUAL Q5M PRN PRN Reason: CHEST PAIN Nitroglycerin (Nitroglycerin 1 Gm/Inch Oint Pkt) 1 inch TOPICAL Q6H PRN PRN Reason: chest pain Ondansetron HCl (Ondansetron 2 Mg/Ml Sdv 2 Ml) 4 mg IVP Q8H PRN PRN Reason: vomiting, or N/V if npo Prasugrel (Prasugrel 10 Mg Tablet) 10 mg PO DAILY [facility] Last Admin: 01/10/25 04:52 Dose: 10 mg Ranolazine (Ranolazine (12hr) 500 Mg Tablet) 500 mg PO DAILY [facility] Last Admin: 01/10/25 04:52 Dose: 500 mg Tamsulosin HCl (Tamsulosin 0.4 Mg Capsule) 0.4 mg PO DAILY [facility] Last Admin: 01/10/25 04:53 Dose: 0.4 mg Vitals/I&O/Wt Last Vital Signs Temp 97.5 F L 01/10/25 07:41 Pulse 57 L 01/10/25 08:24 Resp 16 01/10/25 08:24 BP 112/65 01/10/25 07:41 Pulse Ox 94 01/10/25 08:24 O2 Del Method Room Air 01/10/25 08:24 O2 Flow Rate 1.5 01/09/25 00:51 01/09/25 01/10/25 01/10/25 22:59 06:59 14:59 Intake Total 140.900 / 422.722 218.7 / 641.422 Output Total 300 / 300 150 / 450 Balance -159.100 / 122.722 68.7 / 191.422 Weight last 48 hrs Weight 188 lb 3.2 oz Weight 194 lb Weight 194 lb 9 oz Weight 170 lb Physical Exam Narrative: GENERAL: The patient is alert and oriented times three. Not in any acute distress. HEENT: No significant pallor, icterus or lymphadenopathy.Oral cavity: There are no mucous membrane lesions. NECK: Trachea appears to be central. No masses noted. No JVD or thyromegaly appreciated. RESPIRATORY: Chest is symmetrical. No intercostals muscle retraction or any accessory muscle activation. There is no chest wall tenderness. Breath sounds are heard bilaterally. No rales or rhonchi heard. No evidence of any consolidation. BREASTS: Deferred. HEART: The heart sounds are normal. No S3 or S4. No significant murmurs. No pericardial rub ABDOMEN: No vessel pulsations or distention. No tenderness. No organomegaly appreciated. Bowel sounds are normally heard. : Deferred. RECTAL: Deferred. LYMPHATIC: No lymphadenopathy noted in the neck. EXTREMITIES: Trace edema with no cyanosis. Peripheral pulses are weak bilaterally, dorsalis pedis and posterior tibial arteries. MUSCULOSKELETAL: No acute joint deformities or swelling SKIN: There are no significant rashes or ecchymosis NEUROPSYCHIATRIC: The patient is alert and oriented x3. Appears to be in a good mood. No tremors or rigidity noted. Data 01/10/25 02:45 01/10/25 02:45 Other Labs: Laboratory Last Values WBC 14.49 10^3/uL (3.29-11.43) H 01/10/25 02:45 RBC 4.54 10^6/uL (3.85-5.65) 01/10/25 02:45 Hgb 14.60 g/dL (11.27-16.99) 01/10/25 02:45 Hct 43.4 % (37-53) 01/10/25 02:45 MCV 95.6 fl (82-101) 01/10/25 02:45 MCH 32.2 pg (27-33) 01/10/25 02:45 MCHC 33.6 g/dL (30-55) 01/10/25 02:45 RDW 13.6 % (12.1-15.1) 01/10/25 02:45 Plt Count 232 10^3/cmm (157-399) 01/10/25 02:45 MPV 9.4 fL (7.4-10.4) 01/10/25 02:45 Neut % (Auto) 62.8 % 01/10/25 02:45 Lymph % (Auto) 28.0 % 01/10/25 02:45 [place] % (Auto) 6.6 % 01/10/25 02:45 Eos % (Auto) 1.7 % 01/10/25 02:45 Baso % (Auto) 0.2 % 01/10/25 02:45 Neut # (Auto) 9.10 10^3/uL (1.8-7.7) H 01/10/25 02:45 Lymph # (Auto) 4.1 10^3/uL (0.8-4.8) 01/10/25 02:45 [place] # (Auto) 1.0 10^3/uL (0.2-0.9) H 01/10/25 02:45 Eos # (Auto) 0.2 10^3/uL (0.0-0.8) 01/10/25 02:45 Baso # (Auto) 0.0 10^3/uL (0.0-0.1) 01/10/25 02:45 Nucleated RBC % (auto) 0 % 01/10/25 02:45 Nucleated RBCs # 0.0 /100WBC 01/10/25 02:45 APTT 86.9 SECONDS (23.9-36.7) H 01/10/25 02:45 Sodium 133 mmol/L (136-145) L 01/10/25 02:45 Potassium 3.8 mmol/L (3.5-5.1) 01/10/25 02:45 Chloride 102 mmol/L (98-107) 01/10/25 02:45 Carbon Dioxide 21 mmol/L (22-29) L 01/10/25 02:45 Anion Gap 13.8 (5-19) 01/10/25 02:45 BUN 14 mg/dL (8-23) 01/10/25 02:45 Creatinine 1.0 mg/dL (0.7-1.2) 01/10/25 02:45 GFR Calculation 74.5 mL/min (90-130) L 01/10/25 02:45 Glucose 155 mg/dL (65-115) H 01/10/25 02:45 POC Glucose 164 mg/dL (70-110) H 01/10/25 06:31 Calculated Osmolality 280 mOsm/kg (285-295) L 01/10/25 02:45 Calcium 8.4 mg/dL (8.5-10.5) L 01/10/25 02:45 Magnesium 1.9 mg/dL (1.7-2.3) 01/08/25 18:54 Total Bilirubin 0.7 mg/dL (0.15-1.2) 01/10/25 02:45 AST 16 U/L (0-40) 01/10/25 02:45 ALT 39 U/L (0-41) 01/10/25 02:45 Alkaline Phosphatase 127 U/L (40-130) 01/10/25 02:45 Troponin T Baseline 56 ng/L (0-15) H 01/09/25 04:37 Troponin T 120 Minute 54.80 ng/L (0-15) H 01/09/25 06:07 Delta Troponin T -1.20 ABS# (0-10) L 01/09/25 06:07 Troponin T Hi Sens 6Hr 47.05 ng/L (0-15) H 01/09/25 09:58 Troponin T Hi Sens 6Hr Delta -8.95 ng/L (0-12) L 01/09/25 09:58 NT-Pro-B Natriuret Pep 510 pg/mL (0-125) H 01/08/25 18:54 Total Protein 6.4 g/dL (6.6-8.7) L 01/10/25 02:45 Albumin 3.5 g/dL (3.5-5.2) 01/10/25 02:45 Globulin 2.9 g/dL (1.3-4.6) 01/10/25 02:45 TSH 1.18 uIU/mL (0.27-4.20) 01/08/25 18:54 Urine Color Yellow (Yellow) 01/08/25 20:00 Urine Appearance Clear (CLEAR) 01/08/25 20:00 Urine pH 5.0 (5-7) 01/08/25 20:00 Ur Specific [place] 1.034 (1.005-1.030) H 01/08/25 20:00 Urine Protein Negative (Negative) 01/08/25 20:00 Urine Glucose (UA) 2+ (Normal) H 01/08/25 20:00 Urine Ketones Trace (Negative) 01/08/25 20:00 Urine Blood Negative (Negative) 01/08/25 20:00 Urine Nitrate Negative (Negative) 01/08/25 20:00 Urine Bilirubin Negative (Negative) 01/08/25 20:00 Urine Urobilinogen 1.0 mg/dL (Negative) 01/08/25 20:00 Ur Leukocyte Esterase Negative (Negative) 01/08/25 20:00 Urine RBC 0-2 /hpf (0-2) 01/08/25 20:00 Urine WBC None /hpf (0-5) 01/08/25 20:00 Ur Squamous Epith Cells None /hpf (0-5) 01/08/25 20:00 Amorphous Sediment Not Reportable 01/08/25 20:00 Urine Bacteria Trace /hpf (NONE) 01/08/25 20:00 Urine Opiates Screen Positive ng/mL (Negative) H 01/08/25 20:20 Ur Barbiturates Screen Negative ng/mL (Negative) 01/08/25 20:20 Ur Phencyclidine Scrn Negative ng/mL (Negative) 01/08/25 20:20 Ur Amphetamines Screen Negative ng/mL (Negative) 01/08/25 20:20 U Benzodiazepines Scrn Negative ng/mL (Negative) 01/08/25 20:20 Urine Cocaine Screen Negative ng/mL (Negative) 01/08/25 20:20 U Marijuana (THC) Screen Positive ng/mL (Negative) H 01/08/25 20:20 Ethyl Alcohol < 10 mg/dL (0-10) 01/09/25 07:40 Hepatitis A IgM Ab Non-reactive (Nonreactive) 01/09/25 00:37 Hep Bs Antigen Non-reactive (Nonreactive) 01/09/25 00:37 Hep B Core IgM Ab Non-reactive (Nonreactive) 01/09/25 00:37 Hepatitis C Antibody Non-reactive (Nonreactive) 01/09/25 00:37 HIV 1&2 Ab & HIV 1 Ag Non-reactive (Non-Reactiv) 01/09/25 00:37 HIV 1&2 Antibody Non-reactive (Non-Reactiv) 01/09/25 00:37 A&P Assessment and plan 1. Atherosclerosis of jamul coronary artery of jamul heart with unstable angina pectoris: The patient's symptoms may suggest an unstable angina. Hemodynamically seems to be stable. The EKG is unremarkable. The baseline troponin T was elevated. This may suggest a non-ST elevation myocardial infarction. Subsequent troponin Ts's are trending downwards. 2. Ischemic cardiomyopathy: The patient carries a diagnosis of ischemic cardiomyopathy. However he has not had any recent LV function evaluation. His LV ejection fraction based on the nuclear scan in 2021 was within normal limits?. The echocardiogram from yesterday reveals normal LV ejection fraction 3. Dyslipidemia: Patient may be kept on the current lipid-lowering agent. 4. 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 This needs to be closely monitored. 5. Stage 2 chronic kidney disease: Currently the patient seems to have stage II kidney disease. He needs to be properly hydrated. 6. Chronic obstructive pulmonary disease, unspecified COPD type: Patient continues to smoke. Strongly advised to quit. He has a history of hemoptysis. No recent hemoptysis 7. Sleep apnea, unspecified type: May continue on the current management. Plan: For further evaluation of the patient's coronary status, a cardiac catheterization would be appropriate. The risks and benefits were discussed with the patient. The risk of bleeding, hematoma, vascular injury, myocardial infarction, myocardial perforation, malignant cardiac arrhythmias ,CVA, renal failure and other concomitant complications were explained in detail. Because of his history of renal insufficiency, he carries a higher risk for contrast-induced nephropathy. This is discussed in detail which is understood well and consented to proceed Based on the angiogram findings, further management decisions will be made PDMP PDMP Reviewed: Not Reviewed Attestations Medical Necessity Statement*: Patient requires continued hospital stay for close monitoring and further management Coding Level of Care Code 71596 Diagnoses Atherosclerosis of jamul coronary artery of jamul heart with unstable angina pectoris I25.110 [place] vs. transplanted heart: jamul heart Ischemic cardiomyopathy I25.5 Dyslipidemia E78.5 Type 2 diabetes mellitus without complication in remission E11.A Diabetes mellitus type: type 2, without complications, in remission Stage 2 chronic kidney disease N18.2 Chronic kidney disease stage: stage 2 (GFR 60-89) Chronic obstructive pulmonary disease, unspecified COPD type J44.9 COPD type: unspecified COPD Sleep apnea, unspecified type G47.30 Sleep apnea type: unspecified type
--- NOTE | 2025-01-10 09:18 | XACV_ITS ---
Exam Room: [facility] Ht: 173 cm Wt: 85 kg BSA: 2.04 m2 Gender: Male : 1955 Any Known Allergies: No known allergies Exam Priority: Routine Procedure(s): Procedure Description: Diagnostic procedure Procedure Description: Left Heart Catheterization Procedure Description: Miscellaneous Procedure Description: ACT Procedure Description: Coronary Angiography Malcom ALMODOVAR; Diagnostic Cath Status: Urgent Diagnostic Findings * The left main is a medium caliber vessel with no significant stenotic lesion. * The left anterior descending artery is a medium caliber vessel which appears to wraparound the LV apex. The mid and the distal segment of the artery was found to have mild diffuse intimal irregularities. No significant stenotic lesions were noted. * The left circumflex artery is a medium caliber vessel which was found to have a stent extending from the proximal segment to the first obtuse marginal branch. This stent was found to be patent with a narrowing of around 50% at the ostium of the obtuse marginal branch. The second obtuse marginal artery also was found to have a long stented area in the proximal segment. There was around 30% in-stent narrowing at the mid and distal end of this stented area. One of the side branches of the second obtuse marginal artery was found to have a 90% ostial lesion. This is a very is a small caliber vessel.. * The irregularly artery was found to be totally occluded proximally. Grade 2 [id number]-nx-diamp collaterals were noted filling of the PLV and PDA branch of the artery. Conclusions 1. 69-year-old white male with history of coronary artery disease and previous PCI, presenting with symptoms relative and acute coronary syndrome. For further evaluation of the coronary status, patient underwent left heart catheterization with a left and right coronary angiogram. The findings are as follows. 2. Normal left main. Left anterior descending artery was found to have mild diffuse intimal irregularities in the mid and distal segments. The left circumflex artery was found to have patent stented areas in the proximal circumflex, 1st and 2nd obtuse marginal arteries. Moderate in-stent narrowing at the ostium of the first OM branch. Minimal in-stent narrowing in the second OM branch. Total occlusion right coronary artery with [id number] collaterals. LVEDP of 11 mmHg. Diagnostic RX Recommendation: medical therapy and/or counseling LV EDP: 11 mmHg Left Ventriculography Findings: * LV gram was not performed because of the chronic kidney disease. LVEDP was 11 mm Hg. Pressures Phase:Rest AO : 131 / 62 ( 89 ) @ 11:32:00 AM 139 / 65 ( 95 ) @ 11:43:00 AM 138 / 64 ( 93 ) @ 11:43:00 AM LV : 131 / -6 / 11 @ 11:42:00 AM 142 / -5 / 9 @ 11:43:00 AM Valves Phase:DefaultPhase AV : 0.0 @ 10:58:18 AM AV Mean Gradient: 0.0 @ 10:58:18 AM Clinical Evaluation EBL: 5mL-10mL Procedural Details Procedure Consent Obtained. Admit Source: In Patient. Pre-Procedure Time Out. Identified patient by full name and date of as verbalized by the patient/guarantor. Does the consent match the physician's order: Yes. Accurate & Complete Informed Consent: Yes. Inpatient/Outpatient History & Physical on Chart: Yes. If H&P is completed, is and addenduem needed: Yes; If yes, is the addendum complete: Yes. Visualize and Verify Site with Patient/Guarantor: N/A. Relevant Radiology Images available: N/A. Pre-op teaching completed and patient verbalized understanding. The risks, benefits, and alternatives of sedation and/or procedure were discussed by physician. The patient agrees to continue. Procedure started. [facility] Clinical Fraility Score: 4: Vulnerable. Director Of Campus Recreation Indications: Other NSTEMI. Chest Pain Symptom Assessment: Typical Angina Symptoms. Cardiovascular Instability: Yes, if yes, Persistant Ischemic Symptoms. Correct patient, site and procedure confirmed by cath team. Current diagnosis: NSTEMI. PERRLA. Strong, equal hand learning services coordinator bilaterally. Lungs clear x 5 lobes. IV Site on Arrival: 20 gauge in the left forearm. IV Fluids: 0.9% NaCl at KVO. 200 mL infused prior to cathead worker. Pre Procedural Pulses: bilateral dorsalis pedis was Doppled. Oxygen started at 2liters/min via nasal canula. bilateral groins was prepped with chloroprep then draped in the usual sterile fashion. Baseline sample Acquired. HR: 75 BPM. Physician notified. Physician arrived. Physician scrubbed in. Immediate Pre-Procedure Time Out. Correct Patient: Yes; Correct Procedure: Yes; Correct Site: Yes; Correct Patient Position: Yes; Correct Supplies: Yes; Dried Flammable Prep: Yes; Blood Products Available: N/A;. Current Diagnosis : NSTEMI. Lidocaine 1% infiltrated to the right groin. Arterial access obtained with micropuncture set. ACT drawn. Results 151 seconds. Therapeutic limits - pre-heparin administration 90-150 seconds and monitoring heparin during a vascular procedure >250 seconds. A 5 marshallese JL4 catheter in over wire. Catheter removed over the standard wire. A 5 marshallese JL4.5 catheter in over wire. Multiple views taken of left coronary artery. Dr. Moss notified to review films. Catheter out. A 5 marshallese JR4 catheter in over wire. Catheter advanced across the LV. EDP Sample taken: LV 131/-7,11; HR: 65 BPM; SpO2: 93%. Pullback taken: LV 142/-6,9; AO 139/65(95); Mean: 0mmHg, Peak to Peak: 0mmHg, SEP: 15sec/min; HR: 71 BPM; SpO2: 93%. Multiple views taken of right coronary artery. Catheter removed over the standard wire. Sheath connected to KVO. Dr العراقي and Dr Moss reviewing films. Physician scrubbed out. A Suture was successful obtaining hemostatsis at the Right Femoral artery insertion site. Sheath(s) sutured into position with 2-0 silk and sterile 4x4's and Op-site applied over the site. No oozing or signs and symptoms of hematoma noted. Arterial sheath flushed and connected to tranducer and pressure bag with heparinized saline. Post Procedure: Pulses reassessed and unchanged. PERRLA. Strong, equal hand learning services coordinator bilaterally. No VTE prophylaxis required. Medication's Wasted: Lidocaine 1% = 10 mL. Medication's Wasted: Nitro = 50 mg. Medication's Wasted: Verapamil = 5 mg. Medication's Wasted: Heparin = 4000 u. Medication's Wasted: Other = Fentanyl 75 mcg. Medication's Wasted: Other = Versed 1 mg. Total IV fluids: 280 mL. Post-op diagnosis: Moderate CAD. Complications: none. Estimated blood loss: 5mL-10mL. Responsiveness - Normal response to verbal stimuli; alert and oriented, PERRLA. Airway - Unaffected, no intervention required; spontaneous ventilation. Circulation: W/N/L, pulses unchanged. Nausea/Vomiting: No. Procedure completed. Patient transferred by bed to 1st floor. Vital chart was stopped. Access Site Site: Right Femoral artery Sheath Size: 6 Fr Hemostasis Method: Suture Hemostasis Success: Successful Procedure Medications Start: 10:18 AM Stop: 10:18 AM Medication: Versed Amount: 1 mg Route: I.V. Start: 10:18 AM Stop: 10:18 AM Medication: Fentanyl Amount: 50 mcg Route: I.V. Start: 10:21 AM Stop: 10:21 AM Medication: Versed Amount: 1 mg Route: I.V. Start: 10:25 AM Stop: 10:25 AM Medication: Fentanyl Amount: 50 mcg Route: I.V. Start: 10:29 AM Stop: 10: AM Medication: Versed Amount: 1 mg Route: I.V. Start: 10:29 AM Stop: 10:29 AM Medication: 0.9% Saline Amount: 250 ml Route: I.V. bolus Start: 10:47 AM Stop: :47 AM Medication: Fentanyl Amount: 25 mcg Route: I.V. I, the attending physician, have reviewed and verified all procedure medications. Yes, all medications given per verbal order History/Risk Factors Hypertension: Yes Dyslipidemia: Yes Peripheral Arterial Disease (PAD): No Myocardial Infarction (OR): Yes Obesity: Yes Renal Disease: No Tobacco Use: Current/Recent(w/in 1 year) Prior Interventions PCI: Yes CABG: No Valve Surgery: No Date of PCI: 02/13/2022 Report Signatures Finalized by Dr Satnider العراقي MD [facility] on 01/10/2025 07:27 PM
--- NOTE | 2025-01-10 09:46 | PC.NURSE ---
pt taken to cardiac cath technologist
--- NOTE | 2025-01-10 10:16 | W.PM.OPSUD ---
Surgery/Procedure H&P Update DATE OF PROCEDURE: January 10, 2025 DATE H&P PERFORMED: 01/09/25 H&P UPDATE INFORMATION: I have reviewed H&P completed within last 30 days, I have examined patient prior to procedure and No changes to prior documentation PREOP DIAGNOSIS: ASHD PRIMARY INDICATION FOR PROCEDURE: NSTEMI/previous PCI PLANNED PROCEDURE: Operation Date: 01/10/25 10:00 Proposed Procedures p Cardiac Catheterization(Left) - Satinder العراقي MD and possible PCI PATIENT REASSESSED PRIOR TO SEDATION, WITH NO CHANGE NOTED: Yes PHYSICAL EXAM: alert, oriented x 3, clear to auscultation bilaterally and regular rate & rhythm AIRWAY EVAL/ANESTHESIA PLAN: normal airway, see other exam findings, ASA IV, Monitored Anesthesia, Local Anesthesia, Risks, benefits & alternatives of sedation and/or procedure discussed and Patient agrees to continue as planned
--- NOTE | 2025-01-10 10:55 | PM.OP ---
Operative Report Date of procedure: January 10, 2025 Surgeon: Satinder العراقي MD Procedure: Patient underwent left heart catheterization with left and right coronary angiogram through the right femoral artery. He was found to have chronically occluded right coronary artery. Patent stented segments in the LAD and circumflex arteries. Moderate disease at the ostium of the OM1 and OM 2. LVEDP of 10. Based on the above findings, it was opted to treat him medically
--- NOTE | 2025-01-10 11:21 | PC.NURSE ---
Received pt from laborer mine A,Ox4. Right femoral sheath intact and has mild oozing tract ooze. PT/DP are diminished +2 upon palpitation. Denies any pain or discomfort. call light provided.
--- NOTE | 2025-01-10 12:40 | PM.DCS ---
Discharge Providers Date of Admission: 01/08/25 21:08 Date of Discharge: January 10, 2025 Attending Provider at Admission: Didier Acuna MD Attending Provider at Discharge: Errol Verdugo MD Primary Care Provider: Magno Vann DO Diagnoses at Discharge Discharge Diagnosis 1. Atherosclerosis of [place] coronary artery of [place] heart with unstable angina pectoris: 2. Ischemic cardiomyopathy: 3. Dyslipidemia: 4. Type 2 diabetes mellitus without complication in remission: 5. Stage 2 chronic kidney disease: 6. Chronic obstructive pulmonary disease, unspecified COPD type: 7. Sleep apnea, unspecified type: Reason for Visit Reason for Visit: chest pain Hospital Course Hospital Course This is a 69-year-old male with a past medical history of COPD, sleep apnea, CPAP, type 2 diabetes BPH, hypertension, hyperlipidemia who presents [facility] for chest pain Patient was admitted to [facility] for unstable angina - Medically managed with anticoagulant therapy, aspirin, statin, Effient, cardiology consultation - Managed with coronary angiography, found to have chronic occluded RCA, Patent stented segments in the LAD and circumflex arteries. Moderate disease at the ostium of the OM1 and OM 2. - Continue aspirin, statin, Effient, with close follow-up with cardiology as outpatient For a atrial flutter managed with amiodarone, converted to normal sinus rhythm, transition to p.o. amiodarone, managed on a heparin drip, will be discharged on oral Eliquis Leukocytosis - No fevers, no chills, no cough - Does have right basilar opacities - Remains afebrile - Will discharge on p.o. doxycycline Per patient sciatica, low back pain, no urinary/bowel/incontinence/saddle anesthesia/perianal anesthesia follow-up with primary care, discharged in a on short supply of hydrocodone to be used sparingly for pain, do not drive or operate machinery or drink while taking medication Physical Exam Const: COMMON NORMALS: no acute distress and patient oriented x3 Resp: COMMON NORMALS: normal respiratory effort, No retractions, No use of accessory muscles and clear to auscultation bilaterally AUSCULTATION: clear to auscultation bilaterally Cardio: COMMON NORMALS: regular rate, regular rhythm, S1 normal heart sound present and S2 normal heart sound present RATE: regular rate RHYTHM: regular rhythm HEART SOUNDS: S1 normal heart sound present and S2 normal heart sound present GI: COMMON NORMALS: Normal to inspection, nondistended, normoactive bowel sounds present and non-tender Extremity: COMMON NORMALS: no calf tenderness and no pedal edema Neuro: COMMON NORMALS: patient oriented x3, CN's II-XII intact bilaterally and no focal motor deficits Psych: COMMON NORMALS: mental status grossly normal Discharge Data Studies Completed and Pending Completed Studies During Hospitalization Category Date Time Status XR chest 1V portable [id number] Stat Exams 01/08/25 18:28 Completed CV. echo complete* [id number] Routine Ultrasound 01/09/25 00:26 Completed US abdomen limited [id number] Routine Ultrasound 01/09/25 07:54 Completed Pending at discharge Category Date Time Status [employer] request for service Routine Exams 01/10/25 09:18 Ordered Complete Blood Count w/Auto AM LABS Lab 01/11/25 04:00 Ordered Complete Blood Count w/Auto AM LABS Lab 01/12/25 04:00 Ordered Comprehensive Metabolic Panel AM LABS Lab 01/11/25 04:00 Ordered Comprehensive Metabolic Panel AM LABS Lab 01/12/25 04:00 Ordered PTT [Partial Thromboplastin Time] Timed Lab 01/10/25 10:00 Ordered Radiology Impressions Chest X-Ray 01/08/25 18:28 IMPRESSION: Increasing right basilar opacities may represent atelectasis or consolidation. Abdomen Ultrasound 01/09/25 07:54 IMPRESSION: 1. Negative gallbladder. 2. Pancreas not visualized. 3. No intrahepatic duct dilatation. Laboratory Results WBC 14.49 10^3/uL (3.29-11.43) H 01/10/25 02:45 RBC 4.54 10^6/uL (3.85-5.65) 01/10/25 02:45 Hgb 14.60 g/dL (11.27-16.99) 01/10/25 02:45 Hct 43.4 % (37-53) 01/10/25 02:45 MCV 95.6 fl (82-101) 01/10/25 02:45 MCH 32.2 pg (27-33) 01/10/25 02:45 MCHC 33.6 g/dL (30-55) 01/10/25 02:45 RDW 13.6 % (12.1-15.1) 01/10/25 02:45 Plt Count 232 10^3/cmm (157-399) 01/10/25 02:45 MPV 9.4 fL (7.4-10.4) 01/10/25 02:45 Neut % (Auto) 62.8 % 01/10/25 02:45 Lymph % (Auto) 28.0 % 01/10/25 02:45 [place] % (Auto) 6.6 % 01/10/25 02:45 Eos % (Auto) 1.7 % 01/10/25 02:45 Baso % (Auto) 0.2 % 01/10/25 02:45 Neut # (Auto) 9.10 10^3/uL (1.8-7.7) H 01/10/25 02:45 Lymph # (Auto) 4.1 10^3/uL (0.8-4.8) 01/10/25 02:45 [place] # (Auto) 1.0 10^3/uL (0.2-0.9) H 01/10/25 02:45 Eos # (Auto) 0.2 10^3/uL (0.0-0.8) 01/10/25 02:45 Baso # (Auto) 0.0 10^3/uL (0.0-0.1) 01/10/25 02:45 Nucleated RBC % (auto) 0 % 01/10/25 02:45 Nucleated RBCs # 0.0 /100WBC 01/10/25 02:45 APTT 86.9 SECONDS (23.9-36.7) H 01/10/25 02:45 Sodium 133 mmol/L (136-145) L 01/10/25 02:45 Potassium 3.8 mmol/L (3.5-5.1) 01/10/25 02:45 Chloride 102 mmol/L (98-107) 01/10/25 02:45 Carbon Dioxide 21 mmol/L (22-29) L 01/10/25 02:45 Anion Gap 13.8 (5-19) 01/10/25 02:45 BUN 14 mg/dL (8-23) 01/10/25 02:45 Creatinine 1.0 mg/dL (0.7-1.2) 01/10/25 02:45 GFR Calculation 74.5 mL/min (90-130) L 01/10/25 02:45 Glucose 155 mg/dL (65-115) H 01/10/25 02:45 POC Glucose 164 mg/dL (70-110) H 01/10/25 06:31 Calculated Osmolality 280 mOsm/kg (285-295) L 01/10/25 02:45 Calcium 8.4 mg/dL (8.5-10.5) L 01/10/25 02:45 Magnesium 1.9 mg/dL (1.7-2.3) 01/08/25 18:54 Total Bilirubin 0.7 mg/dL (0.15-1.2) 01/10/25 02:45 AST 16 U/L (0-40) 01/10/25 02:45 ALT 39 U/L (0-41) 01/10/25 02:45 Alkaline Phosphatase 127 U/L (40-130) 01/10/25 02:45 Troponin T Baseline 56 ng/L (0-15) H 01/09/25 04:37 Troponin T 120 Minute 54.80 ng/L (0-15) H 01/09/25 06:07 Delta Troponin T -1.20 ABS# (0-10) L 01/09/25 06:07 Troponin T Hi Sens 6Hr 47.05 ng/L (0-15) H 01/09/25 09:58 Troponin T Hi Sens 6Hr Delta -8.95 ng/L (0-12) L 01/09/25 09:58 NT-Pro-B Natriuret Pep 510 pg/mL (0-125) H 01/08/25 18:54 Total Protein 6.4 g/dL (6.6-8.7) L 01/10/25 02:45 Albumin 3.5 g/dL (3.5-5.2) 01/10/25 02:45 Globulin 2.9 g/dL (1.3-4.6) 01/10/25 02:45 TSH 1.18 uIU/mL (0.27-4.20) 01/08/25 18:54 Urine Color Yellow (Yellow) 01/08/25 20:00 Urine Appearance Clear (CLEAR) 01/08/25 20:00 Urine pH 5.0 (5-7) 01/08/25 20:00 Ur Specific [place] 1.034 (1.005-1.030) H 01/08/25 20:00 Urine Protein Negative (Negative) 01/08/25 20:00 Urine Glucose (UA) 2+ (Normal) H 01/08/25 20:00 Urine Ketones Trace (Negative) 01/08/25 20:00 Urine Blood Negative (Negative) 01/08/25 20:00 Urine Nitrate Negative (Negative) 01/08/25 20:00 Urine Bilirubin Negative (Negative) 01/08/25 20:00 Urine Urobilinogen 1.0 mg/dL (Negative) 01/08/25 20:00 Ur Leukocyte Esterase Negative (Negative) 01/08/25 20:00 Urine RBC 0-2 /hpf (0-2) 01/08/25 20:00 Urine WBC None /hpf (0-5) 01/08/25 20:00 Ur Squamous Epith Cells None /hpf (0-5) 01/08/25:00 Amorphous Sediment Not Reportable 01/08/25 20:00 Urine Bacteria Trace /hpf (NONE) 01/08/25 20:00 Urine Opiates Screen Positive ng/mL (Negative) H 01/08/25 20:20 Ur Barbiturates Screen Negative ng/mL (Negative) 01/08/25 20:20 Ur Phencyclidine Scrn Negative ng/mL (Negative) 01/08/25 20:20 Ur Amphetamines Screen Negative ng/mL (Negative) 01/08/25 20:20 U Benzodiazepines Scrn Negative ng/mL (Negative) 01/08/25 20:20 Urine Cocaine Screen Negative ng/mL (Negative) 01/08/25 20:20 U Marijuana (THC) Screen Positive ng/mL (Negative) H 01/08/25 20:20 Ethyl Alcohol < 10 mg/dL (0-10) 01/09/25 07:40 Hepatitis A IgM Ab Non-reactive (Nonreactive) 01/09/25 00:37 Hep Bs Antigen Non-reactive (Nonreactive) 01/09/25 00:37 Hep B Core IgM Ab Non-reactive (Nonreactive) 01/09/25 00:37 Hepatitis C Antibody Non-reactive (Nonreactive) 01/09/25 00:37 HIV 1&2 Ab & HIV 1 Ag Non-reactive (Non-Reactiv) 01/09/25 00:37 HIV 1&2 Antibody Non-reactive (Non-Reactiv) 01/09/25 00:37 Vitals Last Vital Signs Temp 96.7 F L 01/10/25 11:55 Pulse 65 01/10/25 11:55 Resp 22 H 01/10/25 11:55 BP 115/96 01/10/25 11:55 Pulse Ox 91 01/10/25 11:55 O2 Del Method Nasal Cannula 01/10/25 11:55 O2 Flow Rate 2 01/10/25 11:55 Discharge Plan Discharge Patient Disposition: Home Condition: Stable Prescriptions: New hydrocodone-acetaminophen 5-325 mg tablet 1 tab PO BID PRN (Reason: pain) 3 Days Qty: 6 0RF Eliquis 5 mg tablet 5 mg PO BID 30 Days Qty: 60 0RF amiodarone [Pacerone] 200 mg Tablet See Rx Instructions .ROUTE .COMPLEX Qty: 60 0RF Rx Instructions: 1 tab twice daily for 7 days, followed by 1 tab daily doxycycline hyclate 100 mg tablet 100 mg PO BID 7 Days Qty: 14 0RF Continued aspirin [Adult Aspirin Regimen] 81 mg tablet,delayed release (DR/EC) 81 mg PO DAILY metformin 500 mg tablet 500 mg PO DAILY prasugrel HCl 10 mg tablet 10 mg PO DAILY Qty: 90 0RF Rx Instructions: MUST MAKE AN APPOINTMENT AND BE SEEN PRIOR TO ANY MORE REFILLS nitroglycerin 0.4 mg tablet, sublingual 0.4 mg SUBLINGUAL Q5M PRN (Reason: chest pain) Qty: 25 0RF Rx Instructions: patient needs appointment for further refills cyclobenzaprine 10 mg tablet 10 mg PO Q8H PRN (Reason: muscle spasm) Qty: 20 0RF hydrocodone-acetaminophen 5-325 mg tablet 1 tab PO Q6H PRN (Reason: pain) Qty: 20 0RF dapagliflozin propanediol [Farxiga] 5 mg Tablet 5 mg PO QAM atorvastatin 40 mg tablet 40 mg PO DAILY bumetanide 1 mg tablet 1 mg PO BID omega 3-cls-pea-fish oil [Fish Oil] 1,000 (120-180) mg Capsule 1 cap PO DAILY tamsulosin 0.4 mg capsule See Rx Instructions .ROUTE .COMPLEX Rx Instructions: TAKE 1 CAPSULE BY MOUTH DAILY 1/2 HOUR FOLLOWING THE SAME MEAL EACH DAY ranolazine 500 mg tablet extended release 12 hr 500 mg PO DAILY Discontinued metoprolol succinate 100 mg tablet extended release 24 hr 100 mg PO DAILY Qty: 90 3RF Client Account Assistant OK for DC: Cardiology Referrals: Magno Vann DO [Primary Care Provider, [facility]] Discharge Diet: Cardiac Discharge Activity: Resume usual activity Patient Instructions: Opioid Safety, Patient Portal & Diamond Instructions Activity Restrictions/Additional Instructions: - Please use hydrocodone sparingly for pain, do not drive or operate heavy machinery or drink while taking medication - On Eliquis please monitor for bloody or black stools if so go to the emergency room Discharge Attestations Time Spent in Discharge Care*: greater than 30 min Quality Metrics Clinical Quality Measures [ No reported AMI, CVA or VTE this stay] Coding Level of Care Code 60853 Total time (in minutes) for Discharge: 45 Diagnoses Atherosclerosis of [place] coronary artery of [place] heart with unstable angina pectoris I25.110 [place] vs. transplanted heart: [place] heart Ischemic cardiomyopathy I25.5 Dyslipidemia E78.5 Type 2 diabetes mellitus without complication in remission E11.A Diabetes mellitus type: type 2, without complications, in remission Stage 2 chronic kidney disease N18.2 Chronic kidney disease stage: stage 2 (GFR 60-89) Chronic obstructive pulmonary disease, unspecified COPD type J44.9 COPD type: unspecified COPD Sleep apnea, unspecified type G47.30 Sleep apnea type: unspecified type
--- NOTE | 2025-01-10 12:44 | PC.NURSE ---
pt sat up in bed noted right groin is bleeding and saturated. no hematoma. dressing change and reinforced.
--- NOTE | 2025-01-10 12:45 | PC.NURSE ---
educated pt on not moving his leg and call the nurse for assistance. reinforced pt not to sit up higher than 30 degrees to prevent bleeding.
[2025-01-10 13:27] LABS: Partial Thromboplastin Time 30.8 SECONDS (23.9-36.7)
[2025-01-10] MEDS: morphine 4 mg/mL SDV 1 mL 2 MG IVP ×2 (13:35→19:08)
--- NOTE | 2025-01-10 13:42 | PC.NURSE ---
sheath removal Removed 6 Fr sheath and Manual pressure held for at least 20 mins on right femoral artery. hemostasis achieved. no bleeding or hematoma before, during or after sheath removal. educated pt on bedrest. call light provided. educated pt to call nurse luis alberto if pt feels wetness,unusual pain,pressure or swelling on right groin.
--- NOTE | 2025-01-10 16:00 | PC.NURSE ---
new rx are called to [facility] per patient and SO.
[2025-01-10 17:50] LABS: Add Urine Microscopic? NO
[2025-01-10 17:52] LABS: Glucose Urine UA 3+ (Normal); Nitrate Urine Negative (Negative)
[2025-01-10 17:56] LABS: Specific Gravity, Urine 1.037 (1.005-1.030)
[2025-01-10 18:00] LABS: Charge for UA Resulting for Rev
== END 2025-01-10 20:18 | disposition home or self-care (01) | DRG 287 ==
LOC: ER 20:45 → ER IP 21:08 → CSU 01-09 06:00 → ER IP 01-09 06:07 → CSU 01-09 12:38
PROVIDERS: Internal Medicine Cardiovascular Disease; Admitting Provider Student in an Organized Health Care Education/Training Program; Emergency Provider Emergency Medicine; PCP Family Medicine; Visit Provider Family Medicine
PROC: 4A023N7 Measurement of Cardiac Sampling and Pressure, Left Heart, Percutaneous Approach (ICD-10-PCS; principal; 2025-01-10 10:00)
DX: I25.110 Atherosclerotic heart disease of native coronary artery with unstable angina pectoris (principal); I48.92 Unspecified atrial flutter; I25.82 Chronic total occlusion of coronary artery; E66.9 Obesity, unspecified; Z68.28 Body mass index [BMI] 28.0-28.9, adult; I25.5 Ischemic cardiomyopathy; G43.909 Migraine, unspecified, not intractable, without status migrainosus; G47.39 Other sleep apnea; I12.9 Hypertensive chronic kidney disease with stage 1 through stage 4 chronic kidney disease, or unspecified chronic kidney disease; E11.22 Type 2 diabetes mellitus with diabetic chronic kidney disease; N18.2 Chronic kidney disease, stage 2 (mild); E78.5 Hyperlipidemia, unspecified; J44.9 Chronic obstructive pulmonary disease, unspecified; G89.4 Chronic pain syndrome; E04.2 Nontoxic multinodular goiter; I48.91 Unspecified atrial fibrillation; M48.062 Spinal stenosis, lumbar region with neurogenic claudication; M54.16 Radiculopathy, lumbar region; F17.210 Nicotine dependence, cigarettes, uncomplicated; I25.2 Old myocardial infarction; Z79.84 Long term (current) use of oral hypoglycemic drugs; Z79.01 Long term (current) use of anticoagulants; Z99.89 Dependence on other enabling machines and devices; Z98.1 Arthrodesis status
CPT/HCPCS: 36415; 36416; 71045; 76705; 80053; 80074; 80306; 80307; 81001; 81003; 82962; 83735; 83880; 84443; 84484; 85025; 85347; 85730; 87806; 93005; 93306; 93458; 96365; 96367; 96372; 96375; 99152; 99153; 99285; C1769; C1887; C1894; J0282; J1644; J1815; J2250; J2270; J3010; J3490; J7030; J7040; J9999; Q0163; Q9967

== ENCOUNTER 2025-03-30 10:37 | Outpatient (CLI) | payer MEDICARE, SELFPAY ==
--- NOTE | 2025-03-30 10:49 | MRR_ITS ---
PROCEDURE INFORMATION: Exam: MR Lumbar Spine Without Contrast Exam date and time: 03/30/2025 11:45 AM Age: 69 years old Clinical indication: Injury or trauma; Sprain or strain, lumbar ligaments; Injury details: Twisting injury to the lower back/pain radiates down to both legs/instability in the legs/history of l-spine surgery; Prior surgery; Surgery date: 6+ months; Surgery type: L spine; Additional info: Other intervertebral disc degeneration, lumbar TECHNIQUE: Imaging protocol: Magnetic resonance imaging of the lumbar spine without contrast. COMPARISON: CT lumbar spine wo con* [id number] 12/31/2024 5:29 PM FINDINGS: Bones/joints: There is grade 2 anterolisthesis of L5 on S1. The patient is status post posterior fusion at L5-S1. Bilateral transpedicular screws are seen at L5 and S1. The vertebral body heights are maintained. There is multilevel advanced degenerative disc disease. There is edema seen along the endplates at L1-L2 and L4-L5 which is likely degenerative in nature. Spinal cord: Visualized cord, conus medullaris and cauda equina are unremarkable without compression. L1-L2: There is [id number] spinal canal stenosis secondary to moderate diffuse disc bulging and ligamentum flavum/facet hypertrophy. There is mild bilateral neural foraminal stenosis secondary to foraminal disc bulging and facet hypertrophy. L2-L3: There is [id number] spinal canal stenosis secondary to diffuse disc osteophyte bulging and ligamentum flavum/facet hypertrophy. There is mild left neural foraminal stenosis secondary to foraminal disc osteophyte bulging. The right neural foramen appears patent. L3-L4: There is moderate spinal canal stenosis secondary to a large central disc osteophyte complex and ligamentum flavum/facet hypertrophy. There is [id number] right and mild left neural foraminal stenosis secondary to foraminal disc osteophyte bulging and facet hypertrophy. L4-L5: Expected laminectomy changes are identified. The spinal canal appears patent. There is central disc osteophyte bulging noted. There is severe left and moderate right neural foraminal stenosis secondary to foraminal disc osteophyte bulging and facet hypertrophy. L5-S1: The spinal canal appears patent. There is severe bilateral neural foraminal stenosis secondary to anterolisthesis of L5 on S1 and foraminal disc bulging. Soft tissues: Unremarkable. MR/MR lumbar spine wo con* [id number] IMPRESSION: 1. Status post lumbosacral fusion with expected postoperative changes. 2. Grade 2 anterolisthesis of L5 on S1. 3. No acute appearing findings. Please see above for specific findings at each level.
== END 2025-03-30 10:38 | disposition home or self-care (01) ==
LOC: RAD 10:41
PROVIDERS: PCP Family Medicine; Visit Provider Nurse Practitioner Family
DX: M48.061 Spinal stenosis, lumbar region without neurogenic claudication (principal); M51.369 Other intervertebral disc degeneration, lumbar region without mention of lumbar back pain or lower extremity pain; M43.17 Spondylolisthesis, lumbosacral region; M51.362 Other intervertebral disc degeneration, lumbar region with discogenic back pain and lower extremity pain; Z98.1 Arthrodesis status
CPT/HCPCS: 72148